=== PATIENT | female | born 1965 | race Caucasian/White ===

== ENCOUNTER 2020-01-12 09:00 | Outpatient (REF) | payer SELFPAY ==
--- NOTE | 2020-01-12 09:08 | XR_ITS ---
EXAMINATION: XR LUMBOSACRAL SPINE CLINICAL INFORMATION: Lower back pain. COMPARISON: Abdomen CT on 06/25/2006. TECHNIQUE: 3 views of the lumbosacral spine. FINDINGS: The bones are normally mineralized. No acute fractures are identified. Alignment is maintained. There is severe intervertebral disc height loss at L4-L5 which is new from the comparison CT in 2006. The SI joints are within normal limits. The remainder of the lumbar intervertebral disc heights appear overall preserved. There is trace spondylosis throughout the remainder of the lumbar spine. There is mild facet arthropathy at L5-S1 and L4-L5. XR/XR lumbar spine 2-3V IMPRESSION: Severe disc height loss at L4-L5. No evidence of acute fracture. Normal alignment.
== END 2020-01-12 09:01 | disposition home or self-care (01) ==
LOC: HO.HMGCX 09:00
PROVIDERS: PCP Nurse Practitioner Family; Visit Provider Nurse Practitioner Family
DX: M54.9 Dorsalgia, unspecified (principal)
CPT/HCPCS: 72100

== ENCOUNTER 2020-05-22 11:02 | Outpatient (REF) | payer MEDICAID, SELFPAY ==
[2020-05-22 12:06] LABS: SARS COV2 PCR INHOUSE NEGATIVE (Negative)
== END 2020-05-22 11:03 | disposition home or self-care (01) ==
LOC: HO.LAB 11:02
PROVIDERS: Visit Provider Internal Medicine
DX: Z20.822 Contact with and (suspected) exposure to COVID-19 (principal)
CPT/HCPCS: C9803; U0003

== ENCOUNTER 2020-11-17 00:58 | Emergency (ER) | payer OTHER, SELFPAY ==
--- NOTE | ~2020-11-17 | CT_ITS ---
EXAMINATION: CT ABDOMEN AND PELVIS WITHOUT CONTRAST CLINICAL INFORMATION: Right flank pain COMPARISON: None TECHNIQUE: Multidetector volumetric imaging was performed from the superior aspect of the liver through the pubic symphysis. Sagittal and coronal reformatted images were obtained on the technologist's workstation. This CT examination was performed using dose optimization techniques as appropriate, variously including the following: *Automated exposure control *Adjustment of mA and/or kV according to patient size (this includes techniques or standardized protocols for targeted exams where dose is matched to indication/reason for exam; i.e. extremities or head) *Use of iterative reconstruction technique DLP: 369 mGy-cm FINDINGS: LUNG BASES: There is a patchy groundglass attenuation in the lingula suspicious for developing infiltrate. Minimal atelectatic changes are seen in the lateral basal segment left lower lobe. The heart size is normal. LIVER, GALLBLADDER, AND BILIARY TREE: The liver is normal in size, shape, and diminished attenuation. No focal hepatic lesion or biliary ductal dilatation is present. The gallbladder is unremarkable with no evidence of radiopaque gallstones, gallbladder wall thickening, or obvious pericholecystic inflammatory changes. PANCREAS: Unremarkable. SPLEEN: Unremarkable. ADRENAL GLANDS: The right adrenal gland is normal. There is a soft tissue mass likely arising from the left adrenal gland measuring 4.5 cm in craniocaudad length, 3.9 cm in AP and 5.0 cm in transverse dimension and approximately 40 Hounsfield units suggestive of solid mass. It lies between kidney posteriorly, pancreas superiorly and along lateral adrenal gland. KIDNEYS AND URETERS: The kidneys are normal in size, shape, and attenuation. No hydronephrosis, hydroureter, or calculi seen. No perinephric stranding. BLADDER: Unremarkable. GASTROINTESTINAL TRACT: The small and large bowel are unremarkable. The appendix is unremarkable. ABDOMINAL WALL: No significant hernia is appreciated. LYMPH NODES: Normal. VASCULAR: Unremarkable. PELVIC VISCERA: The uterus is midline. No adnexal mass seen. There is no free fluid. No abnormal lymph nodes seen.. OSSEOUS STRUCTURES: There are degenerative disc changes L4-L5 disc level with vacuum disc phenomenon and ventral spondylosis. No lytic or sclerotic process seen. CT/CT abdomen pelvis wo con IMPRESSION: No acute intra-abdominal process seen. The appendix is normal caliber. Exophytic soft tissue mass arising from the left adrenal gland likely. Its high attenuation values suggestive of a nonbenign adenoma. Recommend CT adrenal protocol exam Diffuse hepatic steatosis without focal lesion. No radiopaque urolith or hydronephrosis.
[2020-11-17 03:32] VITALS: BP 137/85; TEMP 36.1; O2SAT 96; BMI 21.4
[2020-11-17 03:33] VITALS: BP 178/95; PULSE 96; RESP 16; O2SAT 98; BMI 21.4
[2020-11-17] MEDS: Acetaminophen 325 MG TABLET 650 MG PO (03:53)
[2020-11-17 04:28] LABS: Basophils Absolute Auto 0.1 X10*3/uL (0.0-0.2); Basophils Percent Auto 0.7 % (0-2); Eosinophils Absolute Auto 0.2 X10*3/uL (0.0-0.4); Eosinophils Percent Auto 1.6 % (0-4); Hematocrit 39.7 % (37-47); Hemoglobin 14.1 g/dl (12.0-16.0); Imm Gran Abs Auto 0.02 X10*3/uL (0.00-0.03); Imm Gran Pct Auto 0.2 % (0.0-0.4); Lymphocytes Absolute Auto 2.8 X10*3/uL (1.2-4.9); Lymphocytes Percent Auto 23.7 % (20-40); MANUAL DIFF FLAG NO; Mean Corpuscular HGB Conc 35.5 g/dl (31.0-35.0); Mean Corpuscular Volume 104.2 fL (80-98); Mean Platelet Volume 10.7 fL (9.4-12.3); Monocytes Absolute Auto 1.1 X10*3/uL (0.1-1.2); Monocytes Percent Auto 9.3 % (2-11); Neutrophils Absolute Auto 7.6 X10*3/uL (2.0-8.3); Neutrophils Percent Auto 64.5 % (45-73); Platelet Count 199 X10*3/uL (160-400); Red Blood Count 3.81 X10*6/uL (4.20-5.50); Red Cell Distribution Width 12.4 % (11.0-16.0); White Blood Count 11.8 X10*3/uL (4.8-10.8)
[2020-11-17 04:57] LABS: Alanine Aminotransferase 50 U/L (0-31); Albumin Level 3.5 g/dL (3.5-5.0); Alkaline Phosphatase 147 U/L (39-117); Anion Gap 14 (12-20); Aspartate Amino Transferase 290 U/L (5-31); Bilirubin Total 0.6 mg/dL (0.0-1.0); Blood Urea Nitrogen 5 mg/dL (9-16); Calcium 8.4 mg/dL (8.4-10.2); Carbon Dioxide 25 mmol/L (22-29); Chloride 105 mmol/L (96-108); Creatinine Clr Calc Pharmacy 82.9; Estimated Glomerular Filt Rate > 60; Glucose Random 103 mg/dL (60-115); Potassium 3.6 mmol/L (3.3-5.1); Sodium 140 mmol/L (135-145); Total Protein 6.7 g/dL (6.5-8.0)
[2020-11-17 06:45] VITALS: BP 130/71; PULSE 87; RESP 16; TEMP 36.9; O2SAT 95
--- NOTE | 2020-11-17 06:57 | ED_ITS ---
HPI - Back Pain/Injury General Chief Complaint: Back Pain/Injury Stated Complaint: Back pain Time Seen by Provider: 11/17/20 06:56 History of Present Illness HPI Narrative: Patient is 55 years old presents today with having pain to the right flank area radiating to the front. The pain is sharp in nature. There is no bowel urinary incontinence. There is no focal weakness. Patient is from home. The pain is sharp. Patient states that she has chronic back pain this seems very different. Has positive history of smoking. There is no fever no chills. There is no chest pain. There is no diaphoresis. No bloody urine. MD elicited complaint: back pain Related Data Previous Rx's Medication Instructions Recorded losartan 50 mg-hydrochlorothiazide 1 tab PO DAILY 30 Days #30 tab 10/25/20 12.5 mg tablet Allergies Allergy/AdvReac Type Severity Reaction Status Date / Time bee pollen [BEE STINGS] Allergy Unknown SWELLING Verified 11/17/20 03:31 [facility] Past Medical History Attestation statement: The following information was validated with the patient. Medical History Disc degeneration, lumbar Surgical History History of section Family History Family History Father No problems noted. Mother Asthma COPD (chronic obstructive pulmonary disease) Bronchitis Pleurisy Sister No problems noted. Sister Cervical cancer Son No problems noted. Daughter No problems noted. Social History Social History Housing: Other Housing Other:: hotel Alcohol intake: current Alcohol intake frequency: 0-2 drinks per day Alcohol type: beer Patient Tobacco Use Status: Current everyday Tobacco user Tobacco use type: Cigarette Cigarettes Per Day: 30 Years Smoked: 30 e-Cigarette/Vaping Use: Never Used Second Hand Smoke Exposure: No Advance Directives: No Advance Directives Information Provided: No Patient : No Physical Exam Vital Signs: Vital Signs: Last Vital Signs Temp 98.4 F 11/17/20 06:45 Pulse 87 11/17/20 06:45 Resp 16 11/17/20 06:45 BP 130/71 11/17/20 06:45 Pulse Ox 95 11/17/20 06:45 Body Mass Index 21.4 Appearance: Alert. Oriented X3. No acute distress. Eyes: Pupils equal, round and reactive to light. ENT: Pharynx normal. Neck: Normal inspection. Neck supple. No lymph nodes noted. No crepitus CVS: Normal heart rate and rhythm. Pulses normal. Normal S1 and S2 Respiratory: No respiratory distress. Breath sounds normal. No Wheezing. No rales Abdomen: Soft and nontender. No rigidity. No distention. good BS x4. There is no CVA tenderness elicited on palpation. Abdomen is soft. There is no mass palpable. Skin: Skin warm and dry. Normal skin color. Normal skin turgor. Extremities: No lower extremity edema. Neurovascular intact to all extremities. No Lacerations. No Rash. Lower sensation intact. Reflexes 2+ at patella. Neuro: Oriented X 3. No motor deficit. No sensory deficit. Moving all extermities. No slurred speech MDM - Back Pain/Injury MDM Narrative Medical decision making narrative: CT scan of the abdomen pelvis showed no acute kidney stone. No abscess no perforation. It did show an adrenal mass. This will require follow-up on an outpatient basis. This finding was discussed with patient. She needs follow-up on an outpatient basis additional CT scanning. She states understanding. Will discharge patient. Risk of cancer exists. Lab Data Result diagrams: 11/17/20 04:23 11/17/20 04:23 Labs: Lab Results 11/17/20 11/17/20 11/17/20 Range/Units 04:23 04:23 08:09 WBC 11.8 H (4.8-10.8) X10*3/uL RBC 3.81 L (4.20-5.50) X10*6/uL Hgb 14.1 (12.0-16.0) g/dl Hct 39.7 (37-47) % MCV 104.2 H (80-98) fL MCH 37.0 H (27.0-33.0) pg MCHC 35.5 H (31.0-35.0) g/dl RDW 12.4 (11.0-16.0) % Plt Count 199 (160-400) X10*3/uL MPV 10.7 (9.4-12.3) fL Immature Gran % (Auto) 0.2 (0.0-0.4) % Neut % (Auto) 64.5 (45-73) % Lymph % (Auto) 23.7 (20-40) % [place] % (Auto) 9.3 (2-11) % Eos % (Auto) 1.6 (0-4) % Baso % (Auto) 0.7 (0-2) % Lymph # (Auto) 2.8 (1.2-4.9) X10*3/uL [place] # (Auto) 1.1 (0.1-1.2) X10*3/uL Eos # (Auto) 0.2 (0.0-0.4) X10*3/uL Baso # (Auto) 0.1 (0.0-0.2) X10*3/uL Abs Immat Gran (auto) 0.02 (0.00-0.03) X10*3/uL Absolute Neuts (auto) 7.6 (2.0-8.3) X10*3/uL Absolute Nucleated RBC 0.000 (0.0-0.012) X10*3/uL Nucleated RBC % (auto) 0.0 (0.0-0.2) /100WBC Sodium 140 (135-145) mmol/L Potassium 3.6 (3.3-5.1) mmol/L Chloride 105 (96-108) mmol/L Carbon Dioxide 25 (22-29) mmol/L Anion Gap 14 (12-20) BUN 5 L (9-16) mg/dL Creatinine 0.67 (0.5-1.4) mg/dL Estim Creat Clear Calc 82.9 Estimated GFR > 60 Random Glucose 103 (60-115) mg/dL Calcium 8.4 (8.4-10.2) mg/dL Total Bilirubin 0.6 (0.0-1.0) mg/dL AST 290 H (5-31) U/L ALT 50 H (0-31) U/L Alkaline Phosphatase 147 H (39-117) U/L Total Protein 6.7 (6.5-8.0) g/dL Albumin 3.5 (3.5-5.0) g/dL Urine Color YELLOW Urine Appearance CLEAR Urine pH 5.5 (5.0-8.0) Ur Specific [place] 1.020 (1.005-1.025) Urine Protein NEG (NEG-TRACE) MG/DL Urine Glucose (UA) NEG (NEG) MG/DL Urine Ketones NEG (NEG) MG/DL Urine Blood NEG (NEG) Urine Nitrite NEG (NEG) Ur Leukocyte Esterase NEG (NEG) Discharge Plan Discharge Clinical Impression: Abdominal pain Patient Disposition: Home, Self-Care Instructions: Abdominal Pain (ED) Additional Instructions: A mass was found in your left adrenal gland. Risk of cancer exists. Please closely follow-up with your doctor. Please get a repeat CT scan of the adrenal area Prescriptions: No Action losartan-hydrochlorothiazide 50-12.5 mg tablet 1 tab PO DAILY 30 Days Qty: 30 RF: 4 Referrals: Lamonte Mon, [facility] [employer] [facility] [Primary Care Provider] - 2 days (Exophytic soft tissue mass arising from the left adrenal gland likely. Its high attenuation values suggestive of a nonbenign adenoma. Recommend CT adrenal protocol exam Risk of cancer exists. Please follow-up with getting a repeat adrenal CT scan.)
[2020-11-17 08:17] LABS: Appearance Urine CLEAR; Color Urine YELLOW; Glucose Urine UA NEG (NEG); Leukocyte Esterase Urine NEG (NEG); Nitrite Urine NEG (NEG); PH 5.5 (5.0-8.0); Urine Blood NEG (NEG); Urine Ketones NEG (NEG); Urine Protein NEG (NEG-TRACE)
== END 2020-11-17 09:26 | disposition home or self-care (01) ==
PROVIDERS: Emergency Provider Emergency Medicine Emergency Medical Services; PCP Nurse Practitioner Family
DX: R10.9 Unspecified abdominal pain (principal); F17.210 Nicotine dependence, cigarettes, uncomplicated; Z71.6 Tobacco abuse counseling; Z79.899 Other long term (current) drug therapy
CPT/HCPCS: 36415; 74176; 80053; 81003; 85025; 99284

== ENCOUNTER 2020-12-07 10:25 | Outpatient (REF) | payer OTHER, SELFPAY ==
--- NOTE | ~2020-12-07 | CT_ITS ---
EXAMINATION: CT ABDOMEN WITHOUT AND WITH CONTRAST CLINICAL INFORMATION: Disorders of adrenal gland. COMPARISON: None TECHNIQUE: Contiguous axial thin section helical images of the abdomen were performed before and after the administration of oral contrast and 85 mL of Omnipaque 350 intravenous contrast. The data set was reformatted in the coronal and sagittal planes and reviewed on an independent workstation. This CT examination was performed using dose optimization techniques as appropriate, variously including the following: *Automated exposure control *Adjustment of mA and/or kV according to patient size (this includes techniques or standardized protocols for targeted exams where dose is matched to indication/reason for exam; i.e. extremities or head) *Use of iterative reconstruction technique DLP: 738 mGy-cm FINDINGS: LUNG BASES: The lung bases are clear. The heart size is normal. LIVER, GALLBLADDER, AND BILIARY TREE: The liver is normal size, shape and diffuse attenuation. No focal lesion or intrahepatic ductal dilatation seen. The gallbladder is unremarkable. PANCREAS: Unremarkable SPLEEN: The spleen is normal size and density. ADRENAL GLANDS AND KIDNEYS: The right adrenal gland is normal. A solid left adrenal gland is noted measuring 5.3 x 3.8 x 4.7 cm. On precontrast exam it measures 38.4 HU. Immediate postcontrast exam it measures 103 HU and on delayed 10 minute exam it measures 66 . The absolute washout is 56.9 % and related washout is 35.9 % suggestive of indeterminate lesion. BOWEL LOOPS: Unremarkable. LYMPH NODES: Normal. VASCULAR: Unremarkable. BONES: There are degenerative disc changes at L4-L5 disc level with mild ventral spondylosis. No lytic process seen. CT/CT abdomen wo/w con IMPRESSION: Left adrenal mildly enhancing large lesion suggestive of an indeterminate adrenal mass. If clinically indicated a CT guided biopsy or a follow-up can be performed in 6 months. Correlate hormonal workup.
[2020-12-07] MEDS: iohexoL 350 MG/ML 100 ML INFUS..BTL IV (13:00)
== END 2020-12-07 10:26 | disposition home or self-care (01) ==
LOC: HO.CT 10:25
PROVIDERS: Visit Provider Nurse Practitioner Family
DX: E27.8 Other specified disorders of adrenal gland (principal)
CPT/HCPCS: 74170; Q9967

== ENCOUNTER 2020-12-11 13:43 | Outpatient (REF) | payer OTHER, SELFPAY ==
--- NOTE | ~2020-12-11 | MM_ITS ---
EXAMINATION: MM SCREENING DIGITAL BREAST TOMOSYNTHESIS, BILATERAL CLINICAL INFORMATION: Screening. Asymptomatic. History LCIS right breast 2017. The lifetime risk of breast cancer based on the Tyrer-Cuzick Model is 51%. COMPARISON: Mammography: 08/03/2018, 01/13/2018; needle localization 09/02/2017, mammography 07/23/2017, 05/22/2017, 05/12/2017. TECHNIQUE: Digital breast tomosynthesis is performed in both the craniocaudal and mediolateral oblique views along with computer-aided detection (CAD). Synthesized 2D images are generated from the tomosynthesis. Additional bilateral MLO views are provided. FINDINGS: The breasts are heterogeneously dense, which may obscure small masses (ACR BI-RADS breast composition Category c). Breast parenchymal pattern borders on average fibroglandular. There is a fibronodular parenchymal pattern again seen with numerous small mildly waxing and waning smooth nodules. There are no significant masses or developing density. There is old scarring again see posterior upper inner right breast and mid upper left breast. Numerous bilateral punctate and coarse round calcifications again noted. No significant changes from prior exams. MM/MM tomosynthesis screening BI IMPRESSION: There are no significant changes from prior studies. ASSESSMENT: BI-RADS 2: Benign RECOMMENDATION: Routine annual mammography screening. This patient's information was entered into a reminder system with a target due date for their next mammogram.
--- NOTE | ~2020-12-11 | US_ITS ---
EXAMINATION: ULTRASOUND EXTREMITY NONVASCULAR CLINICAL INFORMATION: Localized swelling, mass or lump right forearm COMPARISON: None TECHNIQUE: Grayscale and color imaging of the soft tissues of the distal dorsal right forearm with and without a standoff pad FINDINGS: There is a 9 x 8 x 4 mm hypoechoic lesion just deep to the skin in the area of palpable abnormality. Ultrasound appearance is nonspecific. This could represent a complex sebaceous cyst or epidermoid. US/US extremity nonvascular dennis IMPRESSION: 9 x 8 x 4 mm nonspecific hypoechoic lesion just deep to the skin corresponding to palpable abnormality.
== END 2020-12-11 13:44 | disposition home or self-care (01) ==
LOC: HO.MAMMO 13:43
PROVIDERS: Visit Provider Nurse Practitioner Family
DX: Z12.31 Encounter for screening mammogram for malignant neoplasm of breast (principal); R22.9 Localized swelling, mass and lump, unspecified
CPT/HCPCS: 76882; 77063; 77067

== ENCOUNTER 2020-12-13 13:49 | Outpatient (REF) | payer OTHER, SELFPAY ==
--- NOTE | ~2020-12-13 | MR_ITS ---
EXAMINATION: MR LUMBAR SPINE WITHOUT CONTRAST CLINICAL INFORMATION: Low back pain. Bilateral lower extremity pain. COMPARISON: CT scan of the abdomen and pelvis 12/08/2020. TECHNIQUE: MRI of the lumbar spine was obtained using routine sequences without contrast. FINDINGS: Alignment is normal. Vertebral body heights are preserved. There are mixed degenerative endplate changes at L4-L5. Bone marrow signal intensity is otherwise unremarkable. There is loss of intervertebral disc height and T2 signal intensity at L4-L5 related to disc degeneration. The tip of the conus medullaris is located at L1. No mass effect on the conus. Visualized distal cord signal intensity is normal. At L1-L2 and L2-L3 the annular contours are normal. No canal or neuroforaminal compromise at these 2 levels. At L3-L4 there is a slightly bulging disc. No canal stenosis. No mass effect on the traversing or foraminal nerve roots. At L4-L5 there is a diffusely bulging disc. Bilateral facet degenerative change. No canal stenosis. There is asymmetric narrowing of the left subarticular zone causing abutment of left traversing L5 nerve roots. No foraminal nerve root compression. At L5-S1 there is a slightly bulging disc. Bilateral facet degenerative change. No canal stenosis. No mass effect on the traversing or foraminal nerve roots. Limited visualization of the retroperitoneal anatomy reveals no abnormal finding. Psoas and paraspinal muscle groups are symmetric. MR/MR lumbar spine wo con IMPRESSION: There is degenerative spondylosis at L5-S1. A bulging disc at this level causes abutment of left traversing L5 nerve roots. Otherwise no substantial mass effect on the traversing or foraminal nerve roots elsewhere within the lumbar spine. No canal stenosis.
== END 2020-12-13 13:50 | disposition home or self-care (01) ==
LOC: HO.MRI 13:49
PROVIDERS: Visit Provider Nurse Practitioner Family
DX: M54.9 Dorsalgia, unspecified (principal); M51.36 Other intervertebral disc degeneration, lumbar region; M79.604 Pain in right leg
CPT/HCPCS: 72148

== ENCOUNTER → 2021-01-28 15:48 | Outpatient (BNVA) | payer OTHER, SELFPAY | PROVIDERS: PCP Nurse Practitioner Family; Referring Provider Nurse Practitioner Family; Visit Provider Nurse Practitioner | DX: Z12.11 Encounter for screening for malignant neoplasm of colon (principal); J44.9 Chronic obstructive pulmonary disease, unspecified | CPT/HCPCS: 99202 ==

== ENCOUNTER 2021-03-08 16:35 | Emergency (ER) | payer OTHER, SELFPAY ==
--- NOTE | ~2021-03-08 | XR_ITS ---
EXAMINATION: XR LUMBOSACRAL SPINE CLINICAL INFORMATION: Back pain. COMPARISON: MR lumbar spine dated from 12/13/2020. TECHNIQUE: Three views of the lumbosacral spine. FINDINGS: Indeterminate irregularity in the anterosuperior aspect of the L3 vertebral body. No compression deformities or malalignment. Redemonstration of multilevel degenerative changes leading to varying degrees of neural foraminal encroachment, best appreciated on the most recent MR. Increased degenerative sclerosis of the endplates at L4-L5. Nonobstructive bowel gas pattern. Atherosclerotic disease of the abdominal aorta. No unexpected radiopaque foreign bodies. XR/XR lumbar spine 2-3V IMPRESSION: Indeterminate irregularity in the anterosuperior corner of L3, possibly degenerative in nature, however no clear correlate is identified on the most recent MR. Evaluate for pain/tenderness at this site and if indicated, consider further evaluation with CT or MR.
--- NOTE | ~2021-03-08 | CT_ITS ---
EXAMINATION: CT LUMBAR SPINE WITHOUT CONTRAST CLINICAL INFORMATION: Further evaluation of an irregularity seen on same day radiograph. Low back pain. COMPARISON: Abdominal radiograph done earlier today at 5:28 PM. MR lumbar spine dated from 12/13/2020. CT abdomen/pelvis dated from 11/17/2020 and 06/25/2006. TECHNIQUE: Axial, coronal, and sagittal images of the lumbar spine were obtained without intravenous contrast. This CT examination was performed using dose optimization techniques as appropriate, variously including the following: *Automated exposure control *Adjustment of mA and/or kV according to patient size (this includes techniques or standardized protocols for targeted exams where dose is matched to indication/reason for exam; i.e. extremities or head) *Use of iterative reconstruction technique DLP; 327 mGy-cm FINDINGS: Corresponding to the abnormality noted on the x-ray from earlier today, there is an anterosuperior compression deformity at L3 which is new since November 2020. Other vertebral body heights are maintained and alignment is anatomic. There is a chronic appearing nondisplaced fracture in the right transverse process of L1 (3:51). There is multilevel lumbar spondylosis with disc space narrowing, osteophytes and bilateral facet arthropathy leading to mild to moderate neural foraminal encroachment at several levels, more apparent in the lower lumbar spine. A large 5.2 x 4 cm hyperattenuating mass arising from the left adrenal gland is unchanged since October 2020 but new since 2006. Atherosclerotic disease of the abdominal aorta which is of normal diameter. CT/CT lumbar spine wo con IMPRESSION: Anterosuperior compression deformity at L3 is new since November 2020. No other acute fractures. Mild to moderate lumbar spondylosis. Indeterminate 5.2 cm mass in the left adrenal gland, new since 2006. Recommend further evaluation with a dynamic abdominal MRI and correlation with hormonal workup.
[2021-03-08 16:52] VITALS: BP 147/89; PULSE 114; RESP 18; TEMP 36.7; O2SAT 96; BMI 21.4
--- NOTE | 2021-03-08 17:47 | ED.BACK ---
HPI - Back Pain/Injury General Chief Complaint: Back Pain/Injury <CHERELLE Luna Last Filed: 03/08/21 19:02> Stated Complaint: severe lower back pain <CHERELLE Luna Last Filed: 03/08/21 19:02> Time Seen by Provider: 03/08/21 17:28 <CHERELLE Luna Last Filed: 03/08/21 19:02> Source: patient <CHERELLE Luna Last Filed: 03/08/21 19:02> Mode of arrival: ambulatory <CHERELLE Luna Last Filed: 03/08/21 19:02> History of Present Illness HPI Narrative: 56-year-old female with a PMHx HTN, lumbar disc degeneration, presenting to the ED complaining of right-sided low back pain s/p bending down to help [id number] off ground and hearing pop . Reports pain radiates up the back, causing SOB secondary to pain and difficulty ambulating. Denies direct trauma/injury or fall, numbness, tingling, weakness, urinary incontinence/retention <CHERELLE Luna - Last Filed: 03/08/21 19:02> MD elicited complaint: back pain <CHERELLE Luna Last Filed: 03/08/21 19:02> Pertinent past history: prior back pain <CHERELLE Luna - Last Filed: 03/08/21 19:02> Onset (ago): minute(s) <CHERELLE Luna Last Filed: 03/08/21 19:02> Timing: constant <CHERELLE Luna Last Filed: 03/08/21 19:02> Related Data Home Medications: Previous Rx's Medication Instructions Recorded bisacodyl 5 mg tablet,delayed 10 mg PO ONCE 1 Days #2 tab 01/28/21 release (Dulcolax (bisacodyl)) polyethylene glycol 3350 17 238 g PO ONCE #238 g 01/28/21 gram/dose oral powder (Miralax) losartan 50 mg-hydrochlorothiazide 1 tab PO DAILY 30 Days #30 tab 02/04/21 12.5 mg tablet tramadol 50 mg tablet 50 mg PO DAILY PRN 20 Days #20 tab 02/04/21 acetaminophen 500 mg tablet 500 mg PO Q6H PRN #20 tab 03/08/21 (Tylenol Extra Strength) cyclobenzaprine 5 mg tablet 5 mg PO Q8H PRN 5 Days #14 tab 03/08/21 lidocaine 5 % topical patch 1 patch TOPICAL DAILY PRN #30 ea 03/08/21 (Lidoderm) MDD remove after 12 hours naproxen 500 mg tablet 500 mg PO BID PRN 10 Days #20 tab 03/08/21 oxycodone 5 mg tablet 5 mg PO Q8H PRN #5 tab 03/08/21 <CHERELLE Luna - Last Filed: 03/08/21 19:02> Allergies/Adverse Reactions: Allergies Allergy/AdvReac Type Severity Reaction Status Date / Time bee pollen [BEE STINGS] Allergy Unknown SWELLING Verified 01/28/21 16:12 <CHERELLE Luna - Last Filed: 03/08/21 19:02> Review of Systems Review of Systems: Constitutional: No Fever, No Chills ENT/Mouth: No Ear Pain, No Nasal Congestion, No sore throat, No Rhinorrhea Cardiovascular: No Chest Pain, No SOB Respiratory: No Cough Gastrointestinal: No Nausea, No Vomiting, No Diarrhea, No Abdominal pain Genitourinary:, No Dysuria, No Hematuria, No Urinary Incontinence/retention, No Flank Pain Musculoskeletal: + joint pain, No Myalgias, No Joint Swelling Skin: No Skin Lesions, No rash Neuro: No Weakness, No Numbness, No Paresthesias <CHERELLE Luna - Last Filed: 03/08/21 19:02> Yes all other systems are reviewed and are negative <CHERELLE Luna Last Filed: 03/08/21 19:02> Neurologic: Denies Sensory deficit (Neuro) <CHERELLE Luna Last Filed: 03/08/21 19:02> [facility] Past Medical History Attestation statement: The following information was validated with the patient. <CHERELLE Luna Last Filed: 03/08/21 19:02> Medical History: Medical History Disc degeneration, lumbar HTN (hypertension) <CHERELLE Luna Last Filed: 03/08/21 19:02> Surgical History: Surgical History History of section <CHERELLE Luna - Last Filed: 03/08/21 19:02> Family History Family History: Family History Father No problems noted. Mother Asthma COPD (chronic obstructive pulmonary disease) Bronchitis Pleurisy Sister No problems noted. Sister Cervical cancer Son No problems noted. Daughter No problems noted. <CHERELLE Luna - Last Filed: 03/08/21 19:02> Social History Social History: Social History Housing: Other Housing Other:: hotel Alcohol intake: current Alcohol intake frequency: 0-2 drinks per day Alcohol type: beer Patient Tobacco Use Status: Current everyday Tobacco user Tobacco use type: Cigarette Cigarettes Per Day: 30 Years Smoked: 30 e-Cigarette/Vaping Use: Never Used Second Hand Smoke Exposure: No Advance Directives: No Patient : No <CHERELLE Luna - Last Filed: 03/08/21 19:02> Physical Exam Vital Signs: Vital Signs: Last Vital Signs Temp 98.0 F 03/08/21 16:52 Pulse 114 H 03/08/21 16:52 Resp 16 03/08/21 19:31 BP 147/89 H 03/08/21 16:52 Pulse Ox 96 03/08/21 16:52 BMI result Body Mass Index 21.4 <CHERELLE Luna - Last Filed: 03/08/21 19:02> Vital Signs: Last Vital Signs Temp 98.0 F 03/08/21 16:52 Pulse 114 H 03/08/21 16:52 Resp 16 03/08/21 19:31 BP 147/89 H 03/08/21 16:52 Pulse Ox 96 03/08/21 16:52 BMI result Body Mass Index 21.4 <Ginny Aiken NP - Last Filed: 03/08/21 20:21> Const: Other: in pain <CHERELLE Luna - Last Filed: 03/08/21 19:02> General: cooperative <CHERELLE Luna - Last Filed: 03/08/21 19:02> Orientation/consciousness: patient oriented x3 <Charlene Wu PA - Last Filed: 03/08/21 19:02> Limitations: no limitations <Charlene Wu PA - Last Filed: 03/08/21 19:02> HENMT: Head: Yes normal to inspection and Yes atraumatic <Charlene Wu PA - Last Filed: 03/08/21 19:02> Ears: hearing grossly normal bilaterally <Charlene Wu PA - Last Filed: 03/08/21 19:02> General nose exam: Normal external nose present <Charlene Wu PA - Last Filed: 03/08/21 19:02> Face and sinus: Yes normal facial exam <Charlene Wu PA - Last Filed: 03/08/21 19:02> Eyes: General: appearance normal, both eyes and all related structures <Charlene Wu PA - Last Filed: 03/08/21 19:02> EOM: EOMs intact bilaterally <Charlene Wu PA - Last Filed: 03/08/21 19:02> Neck: Other: No midline cervical spinous tenderness <Charlene Wu PA - Last Filed: 03/08/21 19:02> Neck: Yes normal visual inspection <Charlene Wu PA - Last Filed: 03/08/21 19:02> Resp: Effort & Inspection: normal respiratory effort and no respiratory distress <Charlene Wu PA - Last Filed: 03/08/21 19:02> Cardio: Rate: regular rate <Charlene Wu PA - Last Filed: 03/08/21 19:02> Peripheral pulses: dorsalis pedis present <Charlene Wu PA - Last Filed: 03/08/21 19:02> GI: Inspection: Yes normal to inspection <Charlene Wu PA - Last Filed: 03/08/21 19:02> Palpation (GI): Soft to palpation, nontender, no guarding and not rigid <Charlene Wu PA - Last Filed: 03/08/21 19:02> : General: Yes no CVA tenderness <Charlene Wu PA - Last Filed: 03/08/21 19:02> Back/Spine/Pelvis: Other: No midline thoracic/lumbar spine tenderness/step-off or deformity. + right-sided lower lumbar/paraspinal tenderness to palpation with palpable muscle spasming. No deformity/ecchymosis or erythema <Charlene Wu PA - Last Filed: 03/08/21 19:02> Back: no CVA tenderness <Charlene Wu PA - Last Filed: 03/08/21 19:02> Skin: Rashes: no rashes <Charlene Wu PA - Last Filed: 03/08/21 19:02> Wounds: no wounds <CHERELLE Luna - Last Filed: 03/08/21 19:02> Neuro: Other: No saddle anesthesia. Strength intact throughout <CHERELLE Luna - Last Filed: 03/08/21 19:02> General: patient oriented x3, gait normal, tone normal and moves all extremities <Charlene Wu PA - Last Filed: 03/08/21 19:02> Gait exam (Neuro): Normal gait present <CHERELLE Luna - Last Filed: 03/08/21 19:02> Motor exam (neuro): 5/5 motor strength present throughout <CHERELLE Luna - Last Filed: 03/08/21 19:02> Sensory Exam: No Sensory deficit (Neuro) <CHERELLE Luna - Last Filed: 03/08/21 19:02> Extrem: General: Yes normal to inspection <CHERELLE Luna - Last Filed: 03/08/21 19:02> Course Course Course Narrative: -1757--XR lumbar spine 2-3V IMPRESSION: Indeterminate irregularity in the anterosuperior corner of L3, possibly degenerative in nature, however no clear correlate is identified on the most recent MR. ? Evaluate for pain/tenderness at this site and if indicated, consider further evaluation with CT or MR. >> patient without midline spinous tenderness, due to hearing pop will obtain CT for further eval -184--patient ambulated to the bathroom in the ED without difficulty -190--ED care transferred to night team pending CT results and anticipated DC home <CHERELLE Luna Last Filed: 03/08/21 19:02> -1757--XR lumbar spine 2-3V IMPRESSION: Indeterminate irregularity in the anterosuperior corner of L3, possibly degenerative in nature, however no clear correlate is identified on the most recent MR. ? Evaluate for pain/tenderness at this site and if indicated, consider further evaluation with CT or MR. >> patient without midline spinous tenderness, due to hearing pop will obtain CT for further eval -1847--patient ambulated to the bathroom in the ED without difficulty -1899--ED care transferred to night team pending CT results and anticipated DC home 2019- Ct lumbar spine IMPRESSION: Anterosuperior compression deformity at L3 is new since November 2020. ? No other acute fractures. ? Mild to moderate lumbar spondylosis. ? Indeterminate 5.2 cm mass in the left adrenal gland, new since 2006. Recommend further evaluation with a dynamic abdominal MRI and correlation with hormonal workup.? -patient was noted to be ambulatory to the bathroom. She was still complaining of some pain so I ordered 30 mg more of Toradol IM, and 5 more mg of oxycodone. She was given a copy of her report as well as of informed about her abnormal finding of a left adrenal gland mass. Reviewed worrisome signs and symptoms of when to return to the emergency department. Comfortable discharge home. <Ginny Aiken NP - Last Filed: 03/08/21 20:21> MDM - Back Pain/Injury MDM Narrative Medical decision making narrative: 56-year-old female with a PMHx HTN, lumbar disc degeneration, presenting to the ED complaining of right-sided low back pain s/p bending down to help [id number] off ground and hearing pop . On exam tachycardic likely from pain, no midline spinous tenderness throughout, no red flag symptoms, no saddle anesthesia. Concern for muscle spasming/strain/sprain. Low concern for cauda equina, cord compression, or epidural abscess Plan: Lumbar x-rays, pain management, re-evaluate <CHERELLE Luna - Last Filed: 03/08/21 19:02> Differential Diagnosis Differential diagnosis: Likely lumbar radiculopathy and strain of lumbar region <CHERELLE Luna - Last Filed: 03/08/21 19:02> Medical Records Attestation: I reviewed the patient's medical records. <CHERELLE Luna - Last Filed: 03/08/21 19:02> Lab Data Attestation: I reviewed the patient's lab results. <CHERELLE Luna - Last Filed: 03/08/21 19:02> Discharge Plan Discharge Clinical Impression: Compression fracture of L3 vertebra <CHERELLE Luna Last Filed: 03/08/21 19:02> Patient Disposition: Home, Self-Care <CHERELLE Luna Last Filed: 03/08/21 19:02> Instructions: Vertebral Compression Fracture (ED) <CHERELLE Luna Last Filed: 03/08/21 19:02> Additional Instructions: Continue taking previously prescribed tramadol at home Your pain is likely musculoskeletal Flexeril is a muscle relaxer, take at night as it makes you drowsy, do not drive, drink alcohol, or operate machinery while taking it Naproxen as an anti-inflammatory / pain medication, take with food Lidoderm patches are numbing patches, apply to painful area In addition take Tylenol at home If symptoms persist or worsen, pain becomes unbearable, you developed urinary retention or incontinence, or weakness return to the ED You were given a copy of your report. Follow-up with your PCP. You have a mass on your left adrenal gland and need an outpatient abdominal MRI <CHERELLE Luna Last Filed: 03/08/21 19:02> Prescriptions: New acetaminophen [Tylenol Extra Strength] 500 mg tablet 500 mg PO Q6H PRN (Reason: pain or fever) Qty: 20 RF: 0 lidocaine [Lidoderm] 5 % adhesive patch,medicated 1 patch topical DAILY MDD remove after 12 hours PRN (Reason: pain) Qty: 30 RF: 0 naproxen 500 mg tablet 500 mg PO BID PRN (Reason: pain) 10 Days Qty: 20 RF: 0 cyclobenzaprine 5 mg tablet 5 mg PO Q8H PRN (Reason: pain (scale score 7-10)) 5 Days Qty: 14 RF: 0 oxycodone 5 mg tablet 5 mg PO Q8H PRN (Reason: pain) Qty: 5 RF: 0 No Action tramadol 50 mg tablet 50 mg PO DAILY PRN (Reason: pain) 20 Days Qty: 20 RF: 0 losartan-hydrochlorothiazide 50-12.5 mg tablet 1 tab PO DAILY 30 Days Qty: 30 RF: 4 bisacodyl [Dulcolax (bisacodyl)] 5 mg tablet,delayed release (DR/EC) 10 mg PO ONCE 1 Days Qty: 2 RF: 0 polyethylene glycol 3350 [Miralax] 17 gram/dose powder 238 g PO ONCE Qty: 238 RF: 0 <CHERELLE Luna - Last Filed: 03/08/21 19:02> Referrals: Lamonte Mon, [employer]- [Primary Care Provider] - 2 days <CHERELLE Luna - Last Filed: 03/08/21 19:02>
[2021-03-08] MEDS: Ketorolac Tromethamine 30 MG/ML VIAL IM (18:38)
[2021-03-08] MEDS: oxyCODONE HCl Immed Release 5 MG TABLET PO (18:40)
[2021-03-08] MEDS: Lidocaine 4 % Patch ADH..PATCH 1 PATCH TRANSDERMA (18:40)
[2021-03-08 19:31] VITALS: RESP 16
== END 2021-03-08 20:49 | disposition home or self-care (01) ==
PROVIDERS: Emergency Provider Internal Medicine; PCP Nurse Practitioner Family
DX: M54.50 Low back pain, unspecified (principal); F17.210 Nicotine dependence, cigarettes, uncomplicated; Z71.6 Tobacco abuse counseling; Z79.899 Other long term (current) drug therapy
CPT/HCPCS: 72100; 72131; 96372; 99284; J1885

== ENCOUNTER → 2021-03-12 10:00 | Outpatient (REF) | payer OTHER, SELFPAY ==
--- NOTE | ~2021-03-12 | NM_ITS ---
EXAMINATION: NM BONE SCAN OF THE WHOLE BODY CLINICAL INFORMATION: Low back pain. COMPARISON: MRI lumbar spine 12/13/2020. TECHNIQUE: Multiple gamma scintillation camera images of the whole body were performed 3 hours following the intravenous administration of 20 mCi Tc-99m MDP. FINDINGS: In the head, no abnormal activity seen. In the thoracic cage and upper extremities, there is mild increased activity in bilateral shoulders related to degenerative changes. No abnormal activity seen in the thoracic cage. In the spine, there is mild increased activity seen along the superior endplate of L3 and L5 vertebra suggesting mild endplate compression fractures. In the pelvis, no abnormal activity seen. In the lower extremities, mild focal increased activity left medial knee joint likely degenerative arthritis. No other definite bony abnormalities are noted. The urinary bladder and faint visualization of both kidneys are noted. NM/NM bone scan whole body IMPRESSION: Mild horizontal activity seen in the superior endplates of L3 and L5 vertebra. There is a fracture of the L3 vertebral endplate visualized on the CT as well as on the lumbar spine from 03/08/2021. Mild horizontal activity in the superior endplate of L5 vertebra likely related to degenerative disc disease and endplate sclerosis. On CT the endplate changes are at the L4 inferior endplate and L5 superior endplate.
== END ==
LOC: HO.NUCMED 10:00
PROVIDERS: PCP Nurse Practitioner Family; Visit Provider Nurse Practitioner Family
DX: M51.36 Other intervertebral disc degeneration, lumbar region (principal)
CPT/HCPCS: 78306; A9503

== ENCOUNTER 2021-04-05 08:55 | Day surgery (SDC) | payer OTHER, SELFPAY ==
--- NOTE | 2021-04-04 09:05 | HO.ANESPROP2 ---
Documented by User: Babs Rivera NP 04/04/21 09:06 HPI - Anesthesia Eval Consult details Narrative: 56yo F for Kyphoplasty Medically cleared by PCP [facility] Active Problems Active Problems: All Active Problems (Updated 03/27/21 @ 15:35 by [facility] Pre-op evaluation (Acute) Compression fx, lumbar spine (Acute) Mass of arm (Acute) Pain of back and right lower extremity (Acute) Screening for colon cancer (Acute) Skin nodule (Acute) Left adrenal mass (Acute) Dermoid cyst of arm (Acute) Disc degeneration, lumbar (Acute) Past Medical History Medical History Disc degeneration, lumbar HTN (hypertension) Family History Family History Father No problems noted. Mother Asthma COPD (chronic obstructive pulmonary disease) Bronchitis Pleurisy Sister No problems noted. Sister Cervical cancer Son No problems noted. Daughter No problems noted. Surgical History Surgical History History of section Social History Social History Housing: Other Housing Other:: hotel Alcohol intake: current Alcohol intake frequency: 3 or more drinks per day Alcohol type: beer Patient Tobacco Use Status: Current everyday Tobacco user Tobacco use type: Cigarette Cigarette Packs Per Day: 11 Cigarettes Per Day: 20 Years Smoked: 30 e-Cigarette/Vaping Use: Never Used Second Hand Smoke Exposure: No Use of substances other than those prescribed or required for medical reasons: No Are you DNR?: No Advance Directives: No Advance Directives Information Provided: Yes Meds Allergies Allergy/AdvReac Type Severity Reaction Status Date / Time bee pollen [BEE STINGS] Allergy Unknown SWELLING Verified 03/27/21 15:34 Home Medications Medication Instructions Recorded Confirmed Last Taken Type oxycodone 5 mg tablet 5 mg PO Q8H PRN 03/27/21 03/27/21 Unknown History Exam Exam Date and Time: April 04, 2021 0905 Pertinent Lab Results Pertinent Lab Results: Laboratory Tests 11/17/20 11/17/20 04:23 04:23 WBC 11.8 H Hgb 14.1 Hct 39.7 Plt Count 199 Sodium 140 Potassium 3.6 Chloride 105 Carbon Dioxide 25 BUN 5 L Creatinine 0.67 Narrative Narrative: EKG 03/2021 NSR Assessment and Plan Assessment Anesthesia Assessment: Chart Reviewed Documented by User: Cherise Nunn MD 04/05/21 09:10 [facility] Past Medical History Medical History Disc degeneration, lumbar HTN (hypertension) Family History Family History Father No problems noted. Mother Asthma COPD (chronic obstructive pulmonary disease) Bronchitis Pleurisy Sister No problems noted. Sister Cervical cancer Son No problems noted. Daughter No problems noted. Family history of problems with anesthesia: No Surgical History Surgical History History of section History of Problems with Anesthesia: No Social History Social History Housing: Other Housing Other:: hotel Alcohol intake: current Alcohol intake frequency: 3 or more drinks per day Alcohol type: beer Patient Tobacco Use Status: Current everyday Tobacco user Tobacco use type: Cigarette Cigarette Packs Per Day: 11 Cigarettes Per Day: 20 Years Smoked: 30 e-Cigarette/Vaping Use: Never Used Second Hand Smoke Exposure: No Use of substances other than those prescribed or required for medical reasons: No Are you DNR?: No Advance Directives: No Advance Directives Information Provided: Yes Meds Allergies Allergy/AdvReac Type Severity Reaction Status Date / Time bee pollen [BEE STINGS] Allergy Unknown SWELLING Verified 03/27/21 15:34 Home Medications Medication Instructions Recorded Confirmed Last Taken Type oxycodone 5 mg tablet 5 mg PO Q8H PRN 03/27/21 03/27/21 Unknown History Exam Airway Mallampati Class: II TM Dist: >3cm Neck ROM: Full Denture: Upper Heart: rrr Lungs: cta Assessment and Plan Assessment Anesthesia Assessment: Anesthesia Plan Discussed and Chart Reviewed Final Anesthetic Review Family History of Problems with Anesthesia: No History of Problems with Anesthesia: No NPO: Yes (Sip water in am) ASA Class: III Final Preanesthetic Review: No Changes in Pt Med Stat, Meds/Allgs Chart Reviewed and Consent Obtained/Reviewed Patient Risk: Intermediate Procedure Risk: Intermediate Anesthetic Plan Anesthetic Plan: MAC: Disposition: Standard PACU
[2021-04-05] VITALS (9 sets, daily range): BP systolic 130–180; BP diastolic 64–98; PULSE 84–102; RESP 14–18; TEMP 36.4–36.6; O2SAT 92–98; BMI 22.3
--- NOTE | ~2021-04-05 | CT_ITS ---
EXAMINATION: CT LUMBAR SPINE CLINICAL INFORMATION: Status post L3 kyphoplasty. COMPARISON: None TECHNIQUE: Axial 2 mm thin and reformatted 2 mm thin sagittal and coronal images of the lumbar spine were obtained. This CT examination was performed using dose optimization techniques as appropriate, variously including the following: *Automated exposure control *Adjustment of mA and/or kV according to patient size (this includes techniques or standardized protocols for targeted exams where dose is matched to indication/reason for exam; i.e. extremities or head) *Use of iterative reconstruction technique DLP: 180 mGy-cm FINDINGS: On sagittal reconstructed images, there is an adequate amount of cement occupying the anterior half of the L3 vertebra. No cement extravasation is seen at this time. There is approximately 5-10% loss of vertebral height. The adjacent L2 and L4 vertebral height is normal. L2-L3 and L3-L4 disc levels are unremarkable. CT/CT lumbar spine post vert IMPRESSION: Adequate amount of cement occupies the L3 vertebra post kyphoplasty. No extravasation of cement is seen.
--- NOTE | ~2021-04-05 | CT_ITS ---
EXAMINATION: CT LUMBAR SPINE WITHOUT CONTRAST CLINICAL INFORMATION: Pre-L3 kyphoplasty evaluation. COMPARISON: Bone scan 03/12/2021. TECHNIQUE: 2 mm thin axial and reformatted 2 mm thin sagittal and coronal images of lumbar spine were obtained from L1-L2 disc level through superior endplate of L5 vertebra. This CT examination was performed using dose optimization techniques as appropriate, variously including the following: *Automated exposure control *Adjustment of mA and/or kV according to patient size (this includes techniques or standardized protocols for targeted exams where dose is matched to indication/reason for exam; i.e. extremities or head) *Use of iterative reconstruction technique DLP; 162 mGy-cm FINDINGS: On reconstructed sagittal image, there is normal L2 and L4 vertebral height. There is compression deformity superior endplate L3 vertebra approximately 10-15% loss of L3 vertebral height. The L2-L3 and L3-L4 disc heights are normal. There is loss of L4-L5 disc height with mild sclerosis along the adjacent endplates and moderate spondylosis. The paravertebral soft tissues are normal. CT/CT lumbar spine wo con IMPRESSION: Acute L3 compression fracture with approximately 10-15% loss of L3 vertebral height. Degenerative disc changes with endplate spondylosis L4-L5 disc level.
--- NOTE | ~2021-04-05 | IR_ITS ---
EXAMINATION: IR LUMBAR VERTEBROPLASTY CLINICAL INFORMATION: Wedge compression fracture L3 vertebra. COMPARISON: Bone scan 03/12/2021. TECHNIQUE: Following explaining the fluoroscopy-guided bipedicle approach L2 kyphoplasty procedure, benefits and risks, a written consent was obtained. The patient was placed prone on the fluoroscopy table and the mid back area was cleaned and draped in the usual sterile manner with chlorhexidine solution. The right pedicle was localized on the skin and 1% lidocaine was injected. A 20-gauge spinal needle was then advanced from the skin to the periosteum of the right L3 pedicle and 0.25% Sensorcaine injected. Through a small skin incision, a 10-gauge Kyphon needle was inserted from the skin to the level of the pedicle and through the pedicle into the posterior one-third of the L3 vertebra. A similar 10-gauge Kyphon needle was inserted from the skin, through the left pedicle into the posterior one-third of the L3 vertebra. Simple drill was administered through the right and left needle. High tensile balloons were then inserted through the pedicles and inflated to 200 psi for 5 minutes. The balloons were removed and freshly prepared polymethylmethacrylate was injected through the right needle followed by the left needle. Fluoroscopy was performed during the injection making sure no cement leaked outside the bone marrow. Post procedure both needles were withdrawn and complete hemostasis was achieved at the puncture site. Simple dressing applied post procedure. Sedation was provided by the anesthesia department. FINDINGS: There is a mild compression deformity of the superior endplate of the L3 vertebra. There is an adequate amount of cement occupying the L3 compression fracture with no extravasation seen. FLUOROSCOPY TIME: 12.4 minutes DOSE AREA PRODUCT: 6830 uGy-m2 (microgray-meter squared) IR/IR kyphoplasty lumbar IMPRESSION: Successful fluoroscopy-guided bipedicle approach L3 kyphoplasty performed.
[2021-04-05 09:24] LABS: Basophils Absolute Auto 0.1 X10*3/uL (0.0-0.2); Basophils Percent Auto 0.9 % (0-2); Eosinophils Absolute Auto 0.4 X10*3/uL (0.0-0.4); Eosinophils Percent Auto 4.1 % (0-4); Hematocrit 40.8 % (37.0-47.0); Hemoglobin 14.2 g/dl (12.0-16.0); Imm Gran Abs Auto 0.03 X10*3/uL (0.00-0.03); Imm Gran Pct Auto 0.3 % (0.0-0.4); Lymphocytes Absolute Auto 3.3 X10*3/uL (1.2-4.9); Lymphocytes Percent Auto 30.8 % (20-40); MANUAL DIFF FLAG SCAN; Mean Corpuscular HGB Conc 34.8 g/dl (31.0-35.0); Mean Corpuscular Hemoglobin 36.2 pg (27.0-33.0); Mean Corpuscular Volume 104.1 fL (80.0-98.0); Mean Platelet Volume 9.7 fL (9.4-12.3); Monocytes Absolute Auto 1.6 X10*3/uL (0.1-1.2); Monocytes Percent Auto 14.7 % (2-11); Neutrophils Absolute Auto 5.3 x10*3/uL (2.0-8.3); Neutrophils Percent Auto 49.2 % (45-73); Platelet Count 240 X10*3/uL (160-400); Red Blood Count 3.92 X10*6/uL (4.20-5.50); Red Cell Distribution Width 13.1 % (11.0-16.0); SCAN SMEAR FLAG 1; White Blood Count 10.8 X10*3/uL (4.8-10.8)
--- NOTE | 2021-04-05 09:25 | PC.NURSE ---
SMOKER COUGH NOTED LS CLEAR AND DIMINISHED NO SOB RESP EASY AND REG
[2021-04-05 09:29] LABS: INTERNATIONAL NORM RATIO 0.9 (0.9-1.1); Prothrombin Time 10.7 SEC (9.9-13.0)
[2021-04-05 09:31] LABS: Partial Thromboplastin Time 33.7 SEC (24.1-38.0)
[2021-04-05] MEDS: Lactated Ringers 1,000 ML 100 ML IVCONT (09:34)
[2021-04-05 09:50] LABS: SLIDE REVIEW VERIFIED
[2021-04-05] MEDS: iohexoL 300 MG/ML 50 ML INFUS..BTL INTRAARTIC (12:36)
[2021-04-05] MEDS: Lidocaine HCl 1 % 20 ML VIAL 6 ML INFILTRATI (12:38)
== END 2021-04-05 16:35 | disposition home or self-care (01) ==
PROVIDERS: Radiology Diagnostic Radiology; PCP Nurse Practitioner Family; Visit Provider Radiology Diagnostic Radiology
DX: S32.030A Wedge compression fracture of third lumbar vertebra, initial encounter for closed fracture (principal); M51.36 Other intervertebral disc degeneration, lumbar region; I10 Essential (primary) hypertension; X58.XXXA Exposure to other specified factors, initial encounter; Y93.9 Activity, unspecified; Y92.9 Unspecified place or not applicable; Y99.8 Other external cause status; F17.210 Nicotine dependence, cigarettes, uncomplicated; Z79.899 Other long term (current) drug therapy
CPT/HCPCS: 22514; 36415; 72131; 85025; 85610; 85730; J0690; J2250; J3010; Q9967

== ENCOUNTER 2021-04-17 09:28 | Emergency (ER) | payer OTHER, SELFPAY ==
[2021-04-17 09:42] VITALS: BP 137/60; PULSE 100; RESP 17; TEMP 36.4; O2SAT 96; BMI 22.3
--- NOTE | 2021-04-17 10:47 | ED_ITS ---
HPI - Back Pain/Injury General Chief Complaint: Back Pain/Injury Stated Complaint: Back pain Time Seen by Provider: 04/17/21 10:06 Source: patient and family Mode of arrival: ambulatory Limitations: no limitations History of Present Illness HPI Narrative: 56-year-old female who has a past medical history of chronic back pain who had an L3 vertebrae fracture who has cement therapy done last month presenting to the ED with complaints of acute on chronic worsening mid back pain radiating to her neck for the past few days worse today. Her also checked in for the same complaint. They deny any traumas. They deny any saddle anesthesias. They deny any recent IV drug use. They deny any urinary bowel incontinence or any other symptoms complaints or concerns. When I walked into the exam room the patient was actually drinking alcohol shots with her who has been here multiple times for alcohol intoxication. MD elicited complaint: back pain Pertinent past history: prior back pain Onset (ago): day(s) Timing: constant Severity: mild Similar Symptoms Previously: Yes Location: thoracic spine Radiation: neck Exacerbating factors: movement, sitting upright, walking and lifting Relieving factors: none Context: unknown Associated symptoms: denies other symptoms Work related injury: No Related Data Home Medications Medication Instructions Recorded Confirmed oxycodone 5 mg tablet 5 mg PO Q8H PRN 03/27/21 03/27/21 Previous Rx's Medication Instructions Recorded losartan 50 mg-hydrochlorothiazide 1 tab PO DAILY 30 Days #30 tab 02/04/21 12.5 mg tablet acetaminophen 500 mg tablet 500 mg PO Q6H PRN #20 tab 03/08/21 (Tylenol Extra Strength) lidocaine 5 % topical patch 1 patch TOPICAL DAILY PRN #30 ea 03/08/21 (Lidoderm) MDD remove after 12 hours cyclobenzaprine 5 mg tablet 5 mg PO BID PRN 30 Days #60 tab 03/20/21 naproxen 500 mg tablet 500 mg PO BID PRN 30 Days #60 tab 03/20/21 acetaminophen 500 mg tablet 1,000 mg PO QID PRN #14 tab 04/17/21 (Tylenol Extra Strength) ibuprofen 800 mg tablet 800 mg PO Q8H PRN #14 tab 04/17/21 lidocaine 4 % topical patch 1 patch TOPICAL DAILY PRN #15 ea 04/17/21 (Aspercreme (lidocaine)) prednisone 20 mg tablet 40 mg PO DAILY 5 Days #10 tab 04/17/21 Allergies Allergy/AdvReac Type Severity Reaction Status Date / Time bee pollen [BEE STINGS] Allergy Unknown SWELLING Verified 03/27/21 15:34 Review of Systems Review of Systems: Constitutional : No trauma, No Weight loss, No Fever, No Chills, ENT/Mouth : No Hearing loss, No Ear Pain, No Nasal Congestion, No Sinus Pain, No Hoarseness, No sore throat, No Rhinorrhea, No Swallowing Difficulty Cardiovascular : No Chest Pain, No SOB Respiratory : No Cough, No Dyspnea Gastrointestinal : No Nausea, No Vomiting, No Diarrhea, No abdominal Pain, No Hematochezia, No Melena Genitourinary : No Dysuria, No Urinary Frequency, No Hematuria, No Urinary or Bowel Incontinence/retention Musculoskeletal : + Back pain, No neck pain, No joint stiffness, No joint swelling Skin : No Skin Lesions, No rash or signs of infection Neuro : No Weakness, No radiation, No Numbness, No Paresthesias, No headache, no loss of bowel or bladder incontinence, no saddle anesthesia, Focal weakness, No radiation Denies history of IV drug usage. Yes all other systems are reviewed and are negative [facility] Past Medical History Attestation statement: The following information was validated with the patient. Medical History Disc degeneration, lumbar HTN (hypertension) Surgical History History of section Family History Family History Father No problems noted. Mother Asthma COPD (chronic obstructive pulmonary disease) Bronchitis Pleurisy Sister No problems noted. Sister Cervical cancer Son No problems noted. Daughter No problems noted. Social History Social History Housing: Other Housing Other:: hotel Alcohol intake: current Alcohol intake frequency: 3 or more drinks per day Alcohol type: beer Patient Tobacco Use Status: Current everyday Tobacco user Tobacco use type: Cigarette Cigarette Packs Per Day: 11 Cigarettes Per Day: 20 Years Smoked: 30 e-Cigarette/Vaping Use: Never Used Second Hand Smoke Exposure: No Advance Directives: No Advance Directives Information Provided: No Patient : No Physical Exam Vital Signs: Vital Signs: Last Vital Signs Temp 97.5 F 04/17/21 09:42 Pulse 100 04/17/21 09:42 Resp 17 04/17/21 09:42 BP 137/60 04/17/21 09:42 Pulse Ox 96 04/17/21 09:42 BMI result Body Mass Index 22.3 vital signs have been reviewed as normal and appeared to be correct. Blood pressure normal. Heart rate normal. Respiration rate normal. Temperature normal. Oxygen saturation normal. Appearance: Alert. Oriented X3. No acute distress. Head: Normal external exam. Normocephalic. Atraumatic. No Thomas signs noted. No raccoon eyes noted Eyes: PERRLA. EOMI. Conjunctiva and sclera normal. Eyelids normal. ENT: EAC normal. TM's Normal. Pharynx normal. Uvula midline. Moist mucous membranes. No trismus noted. No drooling noted. No muffled voice noted. Neck: Normal inspection. Neck supple. FROM. No adenopathy. Thyroid Normal. No meningeal signs. No neck mass noted. CVS: Normal heart rate and rhythm. Heart sound normal. No murmurs noted. Pulses normal throughout. Respiratory: No respiratory distress. Painless inspiration. Breath sounds normal. No wheezes/rales/rhonchi noted. Chest nontender. No accessory muscle usage noted or decreased air movement noted. Abdomen: Soft and nontender. Bowel sounds normal in all 4 quadrants. No distention noted. No organomegaly noted. No visible injury noted. Back: No CVA tenderness. Full range of motion noted. No obvious deformities, or edema. Mild para-spinal muscular tenderness from lumbar region to coccyx. Full ROM in back and lower extremities. 5/5 strength hip extension/flexion, abduction, adduction. Mild Lumbar pain with hip flexion against resistance. Straight leg raise test negative on right; Straight leg raise test negative on left; Reflexes normal ankle and knee bilaterally; EHL motor strength normal bilaterally. No rashes/lesion/induration/fluctuance or signs infection noted. Skin: Skin warm and dry. Normal skin color. Normal skin turgor. No rashes/lesions/lacerations noted. Extremities: No lower extremity edema. Extremities exhibit normal range of motion. Extremities nontender. Neuro: Oriented X 3. No motor deficit. No sensory deficit. Reflexes normal. Patient has a normal steady gait. Course Course Course Narrative: Pt c likely muscular pain, but could be herniated disc. Neuro exam shows no deficits. Not c/w AAA/epidural abscess/dissection.No high risk Hx (Incont, fever, immunosupp, recent surgery/LP, coag, signif trauma, wt loss, puls mass, hx/o Ca, TB, or IVDU) to warrant MRI/CT today. Not c/w Pyelo/UTI/kidney stone/spinal fx. Not cauda equina syndrome. Imaging not currently indicated. When I walked in the exam room both the patient and her who checked in for back pain were drinking alcohol shots therefore explained her that this is not appropriate while they are here in the emergency department further back pain therefore I explained to them that will not be given any muscle relaxers or any narcotics and they should not be drinking while in the emergency department. They denied IV drug use. They appear clinically sober. They are not interested in detox after I offered. Therefore at this time they will be disch arged with Motrin/Tylenol prednisone and Lidoderm patches with instructions to follow up with primary care provider and to return if any new or worsening symptoms. Patient and at bedside understand and agree with this plan. MDM - Back Pain/Injury Medical Records Attestation: I reviewed the patient's medical records. Discharge Plan Discharge Clinical Impression: Chronic back pain Patient Disposition: Home, Self-Care Instructions: Chronic Back Pain (DC) Additional Instructions: Because you were drinking in the exam room I cannot give you any sedative medications including muscle relaxers because you could possibly mix these medications and overdose and therefore he will only be giving Motrin/Tylenol and prednisone. Follow up with her primary care provider for further evaluation treatment return if any new or worsening symptoms. Prescriptions: New acetaminophen [Tylenol Extra Strength] 500 mg tablet 1,000 mg PO QID PRN (Reason: fever or pain) Qty: 14 0RF ibuprofen 800 mg tablet 800 mg PO Q8H PRN (Reason: pain) Qty: 14 0RF prednisone 20 mg tablet 40 mg PO DAILY 5 Days Qty: 10 0RF lidocaine [Aspercreme (lidocaine HCl)] 4 % adhesive patch,medicated 1 patch topical DAILY PRN (Reason: pain) Qty: 15 0RF Rx Instructions: Can be substituted No Action losartan-hydrochlorothiazide 50-12.5 mg tablet 1 tab PO DAILY 30 Days Qty: 30 4RF naproxen 500 mg tablet 500 mg PO BID PRN (Reason: pain) 30 Days Qty: 60 0RF cyclobenzaprine 5 mg tablet 5 mg PO BID PRN (Reason: pain (scale score 7-10)) 30 Days Qty: 60 0RF acetaminophen [Tylenol Extra Strength] 500 mg tablet 500 mg PO Q6H PRN (Reason: pain or fever) Qty: 20 0RF lidocaine [Lidoderm] 5 % adhesive patch,medicated 1 patch topical DAILY MDD remove after 12 hours PRN (Reason: pain) Qty: 30 0RF Rx Instructions: leave on most painful area for up to 12 hrs oxycodone 5 mg tablet 5 mg PO Q8H PRN (Reason: pain) 0RF Referrals: Lamonte Mon, [facility] [Primary Care Provider] - 2 days Print Language: Monegasque
== END 2021-04-17 11:06 | disposition home or self-care (01) ==
PROVIDERS: Emergency Provider Emergency Medicine; PCP Nurse Practitioner Family
DX: G89.29 Other chronic pain (principal); M54.50 Low back pain, unspecified; F17.200 Nicotine dependence, unspecified, uncomplicated
CPT/HCPCS: 99283

== ENCOUNTER 2021-04-17 21:44 | Emergency (ER) | payer OTHER, SELFPAY ==
[2021-04-17 21:55] VITALS: BP 178/74; PULSE 110; RESP 20; TEMP 36.2; O2SAT 97; BMI 22.3
[2021-04-17 23:03] LABS: Appearance Urine CLEAR; Color Urine STRAW; Glucose Urine UA NEG (NEG); Leukocyte Esterase Urine NEG (NEG); Nitrite Urine NEG (NEG); Specific Gravity - Urine <= 1.005 (1.005-1.025); Urine Blood NEG (NEG); Urine Ketones NEG (NEG); Urine Protein NEG (NEG-TRACE)
[2021-04-17 23:09] LABS: Amphetamine Screen Urine Not Detected (Not Detect); Barbiturates, Urine Not Detected (Not Detect); Benzodiazepines Screen Urine Not Detected (Not Detect); Cannabinoid Screen Urine Not Detected (Not Detect); Cocaine Screen Urine Not Detected (Not Detect); Fentanyl, urine Not Detected (Not Detect); Opiate Screen Urine POSITIVE (Not Detect); Phencyclidine Screen Urine Not Detected (Not Detect)
[2021-04-17 23:10] LABS: COVID-19 Test Negative (Negative); IDNOW Serial# 55D5AD1C
[2021-04-17 23:22] LABS: MANUAL DIFF FLAG NO
[2021-04-17 23:24] LABS: Basophils Absolute Auto 0.1 X10*3/uL (0.0-0.2); Eosinophils Absolute Auto 0.3 X10*3/uL (0.0-0.4); Eosinophils Percent Auto 3.3 % (0-4); Imm Gran Abs Auto 0.02 X10*3/uL (0.00-0.03); Imm Gran Pct Auto 0.2 % (0.0-0.4); Mean Corpuscular HGB Conc 35.1 g/dl (31.0-35.0); Mean Corpuscular Hemoglobin 35.8 pg (27.0-33.0); Mean Corpuscular Volume 101.9 fL (80.0-98.0); Mean Platelet Volume 9.7 fL (9.4-12.3); Monocytes Absolute Auto 1.2 X10*3/uL (0.1-1.2); Neutrophils Percent Auto 41.5 % (45-73); Platelet Count 225 X10*3/uL (160-400); Red Blood Count 3.63 X10*6/uL (4.20-5.50); Red Cell Distribution Width 13.2 % (11.0-16.0); White Blood Count 9.6 X10*3/uL (4.8-10.8)
[2021-04-17 23:36] LABS: Ethanol 163 mg/dL
[2021-04-17 23:44] LABS: Alanine Aminotransferase 35 U/L (0-31); Albumin Level 4.1 g/dL (3.5-5.0); Alkaline Phosphatase 154 U/L (39-117); Anion Gap 18 (12-20); Aspartate Amino Transferase 99 U/L (5-31); Bilirubin Direct 0.4 mg/dL (0.0-0.5); Bilirubin Total 0.8 mg/dL (0.0-1.0); Blood Urea Nitrogen 13 mg/dL (9-16); Carbon Dioxide 24 mmol/L (22-29); Chloride 93 mmol/L (96-108); Creatinine Clr Calc Pharmacy 72.2; Estimated Glomerular Filt Rate > 60; Glucose Random 99 mg/dL (60-115); Potassium 4.1 mmol/L (3.3-5.1); Sodium 131 mmol/L (135-145); Total Protein 7.4 g/dL (6.5-8.0)
[2021-04-17] MEDS: Bacitracin Oint 14 GM TUBE 1 APPL TOPICAL (23:59)
--- NOTE | 2021-04-18 | PC.NURSE ---
[facility]N referral completed/confirmed, patient will be evaluated in the morning, bacitracin applied as ordered, on sutured left wrist, 14 stitches, covered with dressing/secured with tapes, no distress observed/reported, will continue to monitor.
[2021-04-18 00:08] VITALS: BP 128/60; PULSE 95; RESP 15; TEMP 36.3; O2SAT 94
--- NOTE | 2021-04-18 00:45 | ED.PSYCH ---
HPI - Psych General Chief Complaint: ETOH/Substance Use Stated Complaint: Wrist Lac section 12 Time Seen by Provider: 04/17/21 21:54 Source: patient Mode of arrival: EMS Limitations: no limitations History of Present Illness HPI Narrative: 53-year-old female who was brought to the emergency department on a Section 12 for suicidal ideation and cutting her left wrist. The patient states she got in argument with her . She states that was a verbal argument and she got upset and she was in ?pissed off ?. She states that she then told her and ?you want me gone ?and she took a steak knife and cut her left wrist. She states that immediately after cutting her wrist she regretted it, she states that she was bleeding profusely from the wrist and she wrapped her wrist up in a towel. Apparently her called the police and the patient was placed on a Section 12 and brought to the emergency department. The patient states that she did this on impulse since she was not actually suicidal. She states that she has never hurt herself in the past. She states she was drinking this evening. She states that she drank at least 3 fireball whiskey shots and 6 beers. She states she drinks this much alcohol daily. She does not know in her last tetanus shot was given. Related Data Home Medications Medication Instructions Recorded Confirmed cyclobenzaprine 5 mg tablet 1 tab PO BID PRN 04/17/21 04/17/21 losartan 50 mg-hydrochlorothiazide 1 tab PO DAILY 04/17/21 04/17/21 12.5 mg tablet naproxen 500 mg tablet 1 tab PO BID PRN 04/17/21 04/17/21 oxycodone 5 mg tablet 1 tab PO Q8H PRN 04/17/21 04/17/21 Allergies Allergy/AdvReac Type Severity Reaction Status Date / Time bee pollen [BEE STINGS] Allergy Unknown SWELLING Verified 03/27/21 15:34 Review of Systems Review of Systems: Yes all other systems are reviewed and are negative COUNTS INCLUDE 234 BEDS AT THE [facility] Past Medical History COUNTS INCLUDE 234 BEDS AT THE [facility] Narrative: Past medical history: Hypertension, back pain. Past surgical history: The patient states that she had a kyphoplasty on 04/05/2021 of L4 and L5 vertebrae. Social history: She smokes 1/2 pack of cigarettes for at greater than 20 years. She drinks alcohol daily. She states that she often drinks 3 shots of whiskey and 6 beers daily. She denies drug use. Medical History Disc degeneration, lumbar HTN (hypertension) Surgical History History of section Family History Family History Father No problems noted. Mother Asthma COPD (chronic obstructive pulmonary disease) Bronchitis Pleurisy Sister No problems noted. Sister Cervical cancer Son No problems noted. Daughter No problems noted. Social History Social History Housing: Other Housing Other:: hotel Alcohol intake: current Alcohol intake frequency: 3 or more drinks per day Alcohol type: beer Patient Tobacco Use Status: Current everyday Tobacco user Tobacco use type: Cigarette Cigarette Packs Per Day: 11 Cigarettes Per Day: 20 Years Smoked: 30 e-Cigarette/Vaping Use: Never Used Second Hand Smoke Exposure: No Advance Directives: No Patient : No Physical Exam Vital Signs: Vital Signs: Last Vital Signs Temp 97.4 F 04/18/21 00:08 Pulse 95 04/18/21 00:08 Resp 15 04/18/21 00:08 BP 128/60 04/18/21 00:08 Pulse Ox 94 04/18/21 00:08 BMI result Body Mass Index 22.3 Const: General: cooperative and no acute distress Orientation/consciousness: oriented to person and oriented to place Limitations: no limitations HENMT: Head: Yes normal to inspection, Yes normocephalic and Yes atraumatic Ears: external ears normal General nose exam: Normal external nose present Face and sinus: Yes normal facial exam Mouth: Normal oral and palatal mucosa present Throat: Yes posterior oropharynx normal Eyes: General: appearance normal, both eyes and all related structures Pupils: Equal, round and reactive pupils present Neck: Neck: Yes normal visual inspection, Yes no lymphadenopathy, Yes trachea midline and Yes supple Chest: Chest palpation & inspection: normal inspection of the chest and normal palpation of entire chest wall Resp: Effort & Inspection: normal respiratory effort and able to speak in complete sentences Auscultation: clear to auscultation bilaterally Cardio: Rate: regular rate Rhythm: regular rhythm Heart sounds: S1 normal heart sound present, S2 normal heart sound present and no murmurs GI: Inspection: Yes normal to inspection Palpation (GI): Soft to palpation, nontender and no guarding Auscultation: normal bowel sounds : General: Yes no CVA tenderness Back/Spine/Pelvis: Back: no CVA tenderness Skin: General skin exam: no rashes or lesions noted Neuro: General: oriented to person and oriented to place Cranial nerves: Yes CN's II-XII intact bilaterally and Yes Equal, round and reactive pupils present Cognition (Neuro): normal cognition Motor exam (neuro): 5/5 motor strength present throughout Extrem: Other: The patient has a 5.5 cm full skin thickness laceration which extends into the muscle layer of the left flexor surface of the wrist. She has normal pulses. There is a small active skin bleeder noted in the medial aspect of the laceration. Psych: Appearance: grossly normal Speech and movement: Normal speech and movement present Affect: normal affect Attitude: cooperative Thought process: Normal thought process present Thought content: Normal thought content present, suicidality and no homicidality Course Course Course Narrative: 56-year-old female who got in a verbal argument with her , she then became upset, made a suicidal statement to her and then took a steak knife and cut her left wrist. The patient had a significant laceration to the wrist which required 2 layers suture repair by me. Her exam was otherwise unremarkable. Her laboratory evaluation is consistent with her alcohol use disorder. The patient has an elevated MCV of 101, low sodium and chloride of 131 and 93, elevated AST and ALT of 99 and 35, elevated alk-phos of 154. Urinalysis was negative. Urine tox screen was positive for opiates. Alcohol level was elevated at 163. The patient is medically cleared for psychiatric evaluation. MDM - Psych Lab Data Result diagrams: 04/17/21 23:17 04/17/21 23:17 Labs: Lab Results 04/17/21 04/17/21 04/17/21 Range/Units 22:50 22:50 22:50 WBC (4.8-10.8) X10*3/uL RBC (4.20-5.50) X10*6/uL Hgb (12.0-16.0) g/dl Hct (37.0-47.0) % MCV (80.0-98.0) fL MCH (27.0-33.0) pg MCHC (31.0-35.0) g/dl RDW (11.0-16.0) % Plt Count (160-400) X10*3/uL MPV (9.4-12.3) fL Immature Gran % (Auto) (0.0-0.4) % Neut % (Auto) (45-73) % Lymph % (Auto) (20-40) % Maury % (Auto) (2-11) % Eos % (Auto) (0-4) % Baso % (Auto) (0-2) % Lymph # (Auto) (1.2-4.9) X10*3/uL Maury # (Auto) (0.1-1.2) X10*3/uL Eos # (Auto) (0.0-0.4) X10*3/uL Baso # (Auto) (0.0-0.2) X10*3/uL Abs Immat Gran (auto) (0.00-0.03) X10*3/uL Absolute Neuts (auto) (2.0-8.3) x10*3/uL Absolute Nucleated RBC (0.0-0.012) X10*3/uL Nucleated RBC % (auto) (0.0-0.2) /100WBC Sodium (135-145) mmol/L Potassium (3.3-5.1) mmol/L Chloride (96-108) mmol/L Carbon Dioxide (22-29) mmol/L Anion Gap (12-20) BUN (9-16) mg/dL Creatinine (0.5-1.4) mg/dL Estim Creat Clear Calc Estimated GFR Random Glucose (60-115) mg/dL Calcium (8.4-10.2) mg/dL Total Bilirubin (0.0-1.0) mg/dL Direct Bilirubin (0.0-0.5) mg/dL AST (5-31) U/L ALT (0-31) U/L Alkaline Phosphatase (39-117) U/L Total Protein (6.5-8.0) g/dL Albumin (3.5-5.0) g/dL Urine Color STRAW Urine Appearance CLEAR Urine pH 6.0 (5.0-8.0) Ur Specific Arm[place] <= 1.005 (1.005-1.025) Urine Protein NEG (NEG-TRACE) MG/DL Urine Glucose (UA) NEG (NEG) MG/DL Urine Ketones NEG (NEG) MG/DL Urine Blood NEG (NEG) Urine Nitrite NEG (NEG) Ur Leukocyte Esterase NEG (NEG) Urine Opiates Screen POSITIVE H (Not Detect) Urine Fentanyl Screen Not Detected (Not Detect) Ur Barbiturates Screen Not Detected (Not Detect) Ur Phencyclidine Scrn Not Detected (Not Detect) Ur Amphetamines Screen Not Detected (Not Detect) U Benzodiazepines Scrn Not Detected (Not Detect) Urine Cocaine Screen Not Detected (Not Detect) U Marijuana (THC) Screen Not Detected (Not Detect) Ethyl Alcohol mg/dL COVID-19 ([facility]) Negative (Negative) COVID-19 Clin Com See Note 04/17/21 04/17/21 04/17/21 Range/Units 23:17 23:17 23:17 WBC 9.6 (4.8-10.8) X10*3/uL RBC 3.63 L (4.20-5.50) X10*6/uL Hgb 13.0 (12.0-16.0) g/dl Hct 37.0 (37.0-47.0) % MCV 101.9 H (80.0-98.0) fL MCH 35.8 H (27.0-33.0) pg MCHC 35.1 H (31.0-35.0) g/dl RDW 13.2 (11.0-16.0) % Plt Count 225 (160-400) X10*3/uL MPV 9.7 (9.4-12.3) fL Immature Gran % (Auto) 0.2 (0.0-0.4) % Neut % (Auto) 41.5 L (45-73) % Lymph % (Auto) 42.0 H (20-40) % Maury % (Auto) 12.0 H (2-11) % Eos % (Auto) 3.3 (0-4) % Baso % (Auto) 1.0 (0-2) % Lymph # (Auto) 4.0 (1.2-4.9) X10*3/uL Maury # (Auto) 1.2 (0.1-1.2) X10*3/uL Eos # (Auto) 0.3 (0.0-0.4) X10*3/uL Baso # (Auto) 0.1 (0.0-0.2) X10*3/uL Abs Immat Gran (auto) 0.02 (0.00-0.03) X10*3/uL Absolute Neuts (auto) 4.0 (2.0-8.3) x10*3/uL Absolute Nucleated RBC 0.000 (0.0-0.012) X10*3/uL Nucleated RBC % (auto) 0.0 (0.0-0.2) /100WBC Sodium 131 L (135-145) mmol/L Potassium 4.1 (3.3-5.1) mmol/L Chloride 93 L (96-108) mmol/L Carbon Dioxide 24 (22-29) mmol/L Anion Gap 18 (12-20) BUN 13 (9-16) mg/dL Creatinine 0.76 (0.5-1.4) mg/dL Estim Creat Clear Calc 72.2 Estimated GFR > 60 Random Glucose 99 (60-115) mg/dL Calcium 9.0 D (8.4-10.2) mg/dL Total Bilirubin 0.8 (0.0-1.0) mg/dL Direct Bilirubin 0.4 (0.0-0.5) mg/dL AST 99 H (5-31) U/L ALT 35 H (0-31) U/L Alkaline Phosphatase 154 H (39-117) U/L Total Protein 7.4 (6.5-8.0) g/dL Albumin 4.1 (3.5-5.0) g/dL Urine Color Urine Appearance Urine pH (5.0-8.0) Ur Specific Arm[place] (1.005-1.025) Urine Protein (NEG-TRACE) MG/DL Urine Glucose (UA) (NEG) MG/DL Urine Ketones (NEG) MG/DL Urine Blood (NEG) Urine Nitrite (NEG) Ur Leukocyte Esterase (NEG) Urine Opiates Screen (Not Detect) Urine Fentanyl Screen (Not Detect) Ur Barbiturates Screen (Not Detect) Ur Phencyclidine Scrn (Not Detect) Ur Amphetamines Screen (Not Detect) U Benzodiazepines Scrn (Not Detect) Urine Cocaine Screen (Not Detect) U Marijuana (THC) Screen (Not Detect) Ethyl Alcohol 163 mg/dL COVID-19 ([facility]) (Negative) COVID-19 Clin Com Procedures Laceration Left wrist: Site: upper extremity (Wrist) Side (If applicable): left Size (cm): 5.5 Description: linear Depth: involves muscle layer Local Anesthetic: lidocaine 2% and with epi Amount of anesthesia used (mL): 10 Pre-repair: wound explored, irrigated extensively and deep structures intact Skin layer closed with: nylon Size (cm): 4-0 Number of sutures: 11 Technique: simple, interrupted Subcutaneous layer closed with: vicryl Size: 3-0 Number of sutures: 3 Technique: simple, interrupted Discharge Plan Discharge Clinical Impression: Suicide ideation, Laceration of wrist Prescriptions: No Action losartan-hydrochlorothiazide 50-12.5 mg tablet 1 tab PO DAILY 0RF naproxen 500 mg tablet 1 tab PO BID PRN (Reason: pain) 0RF oxycodone 5 mg tablet 1 tab PO Q8H PRN (Reason: pain) 0RF cyclobenzaprine 5 mg tablet 1 tab PO BID PRN (Reason: pain) 0RF
--- NOTE | 2021-04-18 06:10 | PC.NURSE ---
Patient slept though the night, no distress observed/reported, pending [facility] evaluation in the morning, med rec completed/pending provider's approval, behavior appropriate, asymptomatic of withdrawal, will continue to monitor.
--- NOTE | 2021-04-18 07:14 | PC.NURSE ---
patient appears to remain asleep at present respirations are even and unlabored, patient appears in no distress
[2021-04-18] MEDS: Losartan Potassium 50 MG TABLET PO (10:43)
[2021-04-18] MEDS: hydroCHLOROthiazide 12.5 MG TABLET PO (10:43)
[2021-04-18] MEDS: Nicotine Polacrilex 2 MG GUM BUCCAL (11:15)
--- NOTE | 2021-04-18 11:23 | PC.NURSE ---
?/SO called and left phone number for patient [phone]
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
--- NOTE | 2021-04-18 13:32 | MHC.RECOVSUP ---
? Reason for consult:Recovery Support o Current location:[facility] o Identified substance use concern: ETOH - Withdrawal - Support ? Intervention: o Community resources provided o Harm reduction discussion ? Plan: o Referral to CCC o Patient to follow up with [facility] after discharge ? Additional information:Patient refuses detox, spoke to patient re: HARM REDUCTION, gave pt. community resources
== END 2021-04-18 14:46 | disposition home or self-care (01) ==
PROVIDERS: Emergency Provider Emergency Medicine Emergency Medical Services
DX: R45.851 Suicidal ideations (principal); S61.512A Laceration without foreign body of left wrist, initial encounter; X78.1XXA Intentional self-harm by knife, initial encounter; F17.200 Nicotine dependence, unspecified, uncomplicated; Z20.822 Contact with and (suspected) exposure to COVID-19; Y93.89 Activity, other specified; Y92.59 Other trade areas as the place of occurrence of the external cause; Y99.9 Unspecified external cause status
CPT/HCPCS: 12042; 36415; 80048; 80076; 80307; 81003; 82077; 85025; 87635; 90715; 99284

== ENCOUNTER 2021-05-23 02:05 | Emergency (ER) | payer OTHER, SELFPAY ==
--- NOTE | ~2021-05-23 | CT_ITS ---
EXAMINATION: CT THORACIC AND LUMBAR SPINE WITH CONTRAST CLINICAL INFORMATION: Lower extremity pain and tremors. Status post kyphoplasty 04/05/2021 COMPARISON: CT dated 04/05/2021 and 03/08/2021. CT abdomen/pelvis dated 11/17/2020. TECHNIQUE: Multidetector CT imaging of the thoracic and lumbar spine was performed after the administration of 85 mL Omnipaque 350. Coronal and sagittal reformats are reviewed. This CT examination was performed using dose optimization techniques as appropriate, variously including the following: *Automated exposure control *Adjustment of mA and/or kV according to patient size (this includes techniques or standardized protocols for targeted exams where dose is matched to indication/reason for exam; i.e. extremities or head) *Use of iterative reconstruction technique DLP:980 mGy-cm FINDINGS: Thoracic spine: No acute fracture or traumatic malalignment. Vertebral body heights maintained. No significant degenerative changes. Paraspinal soft tissues unremarkable. Imaged viscera demonstrates [id number] centrilobular emphysema. Lumbar spine: Cement present within the L3 vertebral body which shows a stable degree of compression deformity resulting in 20-30% height loss anteriorly with a small crescentic minimally displaced fragment along the anterosuperior aspect of the vertebral body. Trace cement extends superiorly into the L2-L3 interspace, unchanged from the postprocedural CT. Remaining lumbar vertebral body heights are preserved. Stable near-complete obliteration of L4-L5 disc space with diffuse disc bulge and endplate osteophytes. There is a moderate broad-based posterior disc protrusion at L5-S1. Small diffuse disc bulges at L2-L3 and L3-L4 appearing similar to the prior exam in February 2021. Imaged viscera demonstrates a large mass apparently emanating from the lateral limb of the left adrenal gland which appears similar in overall size from the previous CT abdomen/pelvis dated 11/17/2020. CT/CT lumbar spine w con IMPRESSION: * Stable appearance of the compression fracture at L3 status post vertebroplasty. * No new fractures within the thoracic and lumbar spine. * Lumbar spondylosis as described. * Solid left adrenal mass is stable in size since October 2020. Current guidelines from the [place] [employer] and the [place] [employer] recommend an initial biochemical evaluation of all adrenal incidentalomas to exclude pheochromocytoma, subclinical Flora/s syndrome and hyperaldosteronism. Tissue characterization may be required.
--- NOTE | ~2021-05-23 | CT_ITS ---
EXAMINATION: CT THORACIC AND LUMBAR SPINE WITH CONTRAST CLINICAL INFORMATION: Lower extremity pain and tremors. Status post kyphoplasty 04/05/2021 COMPARISON: CT dated 04/05/2021 and 03/08/2021. CT abdomen/pelvis dated 11/17/2020. TECHNIQUE: Multidetector CT imaging of the thoracic and lumbar spine was performed after the administration of 85 mL Omnipaque 350. Coronal and sagittal reformats are reviewed. This CT examination was performed using dose optimization techniques as appropriate, variously including the following: *Automated exposure control *Adjustment of mA and/or kV according to patient size (this includes techniques or standardized protocols for targeted exams where dose is matched to indication/reason for exam; i.e. extremities or head) *Use of iterative reconstruction technique DLP:980 mGy-cm FINDINGS: Thoracic spine: No acute fracture or traumatic malalignment. Vertebral body heights maintained. No significant degenerative changes. Paraspinal soft tissues unremarkable. Imaged viscera demonstrates [id number] centrilobular emphysema. Lumbar spine: Cement present within the L3 vertebral body which shows a stable degree of compression deformity resulting in 20-30% height loss anteriorly with a small crescentic minimally displaced fragment along the anterosuperior aspect of the vertebral body. Trace cement extends superiorly into the L2-L3 interspace, unchanged from the postprocedural CT. Remaining lumbar vertebral body heights are preserved. Stable near-complete obliteration of L4-L5 disc space with diffuse disc bulge and endplate osteophytes. There is a moderate broad-based posterior disc protrusion at L5-S1. Small diffuse disc bulges at L2-L3 and L3-L4 appearing similar to the prior exam in February 2021. Imaged viscera demonstrates a large mass apparently emanating from the lateral limb of the left adrenal gland which appears similar in overall size from the previous CT abdomen/pelvis dated 11/17/2020. CT/CT thoracic spine w con IMPRESSION: * Stable appearance of the compression fracture at L3 status post vertebroplasty. * No new fractures within the thoracic and lumbar spine. * Lumbar spondylosis as described. * Solid left adrenal mass is stable in size since October 2020. Current guidelines from the [place] [employer] and the [place] [employer] recommend an initial biochemical evaluation of all adrenal incidentalomas to exclude pheochromocytoma, subclinical Flora/s syndrome and hyperaldosteronism. Tissue characterization may be required.
[2021-05-23 02:07] VITALS: BP 148/85; PULSE 104; RESP 18; TEMP 36.2; O2SAT 98; BMI 22.3
[2021-05-23 02:58] LABS: Basophils Absolute Auto 0.1 X10*3/uL (0.0-0.2); Basophils Percent Auto 0.7 % (0-2); Eosinophils Absolute Auto 0.3 X10*3/uL (0.0-0.4); Eosinophils Percent Auto 3.8 % (0-4); Hematocrit 34.6 % (37.0-47.0); Hemoglobin 12.1 g/dl (12.0-16.0); Imm Gran Abs Auto 0.01 X10*3/uL (0.00-0.03); Imm Gran Pct Auto 0.1 % (0.0-0.4); Lymphocytes Absolute Auto 4.3 X10*3/uL (1.2-4.9); Lymphocytes Percent Auto 47.7 % (20-40); MANUAL DIFF FLAG NO; Mean Corpuscular Hemoglobin 36.8 pg (27.0-33.0); Mean Corpuscular Volume 105.2 fL (80.0-98.0); Mean Platelet Volume 9.7 fL (9.4-12.3); Monocytes Absolute Auto 1.1 X10*3/uL (0.1-1.2); Monocytes Percent Auto 12.5 % (2-11); NRBC Pct Auto 0.2 /100WBC (0.0-0.2); Neutrophils Absolute Auto 3.1 x10*3/uL (2.0-8.3); Neutrophils Percent Auto 35.2 % (45-73); Platelet Count 199 X10*3/uL (160-400); Red Blood Count 3.29 X10*6/uL (4.20-5.50); Red Cell Distribution Width 14.5 % (11.0-16.0); White Blood Count 8.9 X10*3/uL (4.8-10.8)
[2021-05-23 03:08] VITALS: BP 150/66; PULSE 97; RESP 16; TEMP 36.8; O2SAT 96
[2021-05-23 03:24] LABS: Alanine Aminotransferase 40 U/L (0-31); Albumin Level 3.8 g/dL (3.5-5.0); Alkaline Phosphatase 132 U/L (39-117); Anion Gap 16 (12-20); Aspartate Amino Transferase 116 U/L (5-31); Bilirubin Total 0.4 mg/dL (0.0-1.0); Blood Urea Nitrogen 6 mg/dL (9-16); Calcium 9.1 mg/dL (8.4-10.2); Carbon Dioxide 24 mmol/L (22-29); Chloride 101 mmol/L (96-108); Creatinine Clr Calc Pharmacy 80.7; Estimated Glomerular Filt Rate > 60; Glucose Random 128 mg/dL (60-115); Magnesium 2.3 mg/dL (1.6-2.6); Potassium 3.6 mmol/L (3.3-5.1); Sodium 137 mmol/L (135-145)
[2021-05-23 03:31] LABS: Appearance Urine CLEAR; Color Urine YELLOW; Glucose Urine UA NEG (NEG); Leukocyte Esterase Urine 2+ (NEG); Nitrite Urine NEG (NEG); Specific Gravity - Urine <= 1.005 (1.005-1.025); UACC Culture Trigger YES; Urine Blood NEG (NEG); Urine Ketones NEG (NEG); Urine Protein NEG (NEG-TRACE)
[2021-05-23 03:35] LABS: Influenza A PCR NEGATIVE (Negative); Influenza B PCR NEGATIVE (Negative); Resp Syncy Virus RNA Qual PCR NEGATIVE (Negative); SARS COV2 PCR INHOUSE NEGATIVE (Negative)
--- NOTE | 2021-05-23 03:46 | ED.GENADULT ---
HPI - General Adult General Chief complaint: General Medical Stated complaint: body aches/convulsions Time Seen by Provider: 05/23/21 02:27 Source: patient and other Mode of arrival: ambulatory History of Present Illness HPI narrative: 56-year-old female with presentation for increase presence of tremors that she states affects all 4 extremities, patient states that she is a regular drinker of alcohol and an every day smoker. Patient states her last alcoholic drink was approximately 3-4 hours ago and otherwise denies any speech/auditory symptoms with the tremors and denies any fevers, chills, nausea, vomiting, but states that she does have several episodes of stools daily without difficulty and denies any presence of blood. In addition, patient denies any urinary pain/burning/frequency and does report a procedure on her back that on review of documentation appears to have occurred on 04/05/2021. Patient voices concerns of possible Parkinson's development. Related Data Home Medications Medication Instructions Recorded Confirmed cyclobenzaprine 5 mg tablet 1 tab PO BID PRN 04/17/21 04/17/21 losartan 50 mg-hydrochlorothiazide 1 tab PO DAILY 04/17/21 04/17/21 12.5 mg tablet naproxen 500 mg tablet 1 tab PO BID PRN 04/17/21 04/17/21 Allergies Allergy/AdvReac Type Severity Reaction Status Date / Time bee pollen [BEE STINGS] Allergy Unknown SWELLING Verified 05/23/21 02:07 Review of Systems Review of Systems: Pertinent positives and negatives as stated in HPI and 10 point review of systems is otherwise negative. [facility] Past Medical History Source: nursing notes reviewed Medical History Disc degeneration, lumbar HTN (hypertension) Surgical History History of section Family History Family History Father No problems noted. Mother Asthma COPD (chronic obstructive pulmonary disease) Bronchitis Pleurisy Sister No problems noted. Sister Cervical cancer Son No problems noted. Daughter No problems noted. Social History Social History Housing: Other Housing Other:: hotel Alcohol intake: current Alcohol intake frequency: 3 or more drinks per day Alcohol type: beer Patient Tobacco Use Status: Current everyday Tobacco user Tobacco use type: Cigarette Cigarette Packs Per Day: 0.5 Cigarettes Per Day: 10 Years Smoked: 30 e-Cigarette/Vaping Use: Never Used Second Hand Smoke Exposure: No Advance Directives: No Advance Directives Information Provided: Yes Patient : No Current occupational status: disabled Physical Exam ED Vital Signs: Vital Signs - 24 hr 05/23/21 02:07 05/23/21 03:08 Temperature 97.2 F 98.2 F Pulse Rate 104 H 97 Respiratory Rate 18 16 Blood Pressure 148/85 H 150/66 H Pulse Oximetry 98 96 BMI result Body Mass Index 22.3 VITAL SIGNS: Reviewed. GENERAL: Cachectic, chronically ill, in no acute distress. HEAD: Normocephalic/atraumatic EYES: PERRLA, EOMI intact without pain, no nystagmus EARS: Ext canals without abnormality OROPHARYNX: no oral lesions noted, posterior pharynx clear LUNGS: Normal breath sounds. No adventitious sounds or accessory muscle use. SpO2<98> CARDIOVASCULAR: Regular rate and rhythm without noted murmurs, no JVD or lower extremity edema. ABDOMEN: Soft, non-tender, non-distended with bowel sounds. BACK: No midline vertebral tenderness, no erythema/induration, no step-offs, and no tenderness on palpation. MUSCULOSKELETAL: No tenderness, deformities, or effusions noted on gross inspection. EXTREMITIES: No cyanosis, clubbing or edema. SKIN: Inspection of the skin reveals no rashes, ulcerations, jaundice, pallor, or petechiae. NEUROLOGIC: Alert and oriented x 4. Strength and sensation to light touch were grossly intact x 4, but noticeable tremor primarily to the right upper extremity, none noted to the left upper extremity nor to bilateral lower extremities. It is noted that bilateral lower extremities are able to be raised against gravity but minimal amount of pressure and patient is unable to keep them elevated. Course Course Course Narrative: 56-year-old female with history and clinical presentation tremors and unclear etiology given patient's recent alcohol use I do not suspect that this is due to withdrawal symptoms but could be secondary to longstanding alcohol affects, less likely Parkinson's given the history and clinical findings, or possible benign essential tremor. All these possibilities were discussed with the patient at bedside and she understands that we will evaluate for immediate etiologies such as infections. Low clinical suspicion for acute ascending neurologic condition and low clinical suspicion for cauda equina. However given that patient underwent manipulation of the spine in March will probably pursue CT of the spine with IV contrast to ensure no evidence to suggest infection. Although, patient does not complain of new spinal pain. Review of all imaging studies negative for acute findings and on review of all laboratory investigations patient's symptoms are most notably consistent with likely B12 deficiency. All results and findings were discussed with her bedside and on re-evaluation she is noted to be without tremors and understands the plan. Medical Decision Making Lab Data Result diagrams: 05/23/21 02:51 05/23/21 02:51 Labs: Lab Results 05/23/21 05/23/21 05/23/21 Range/Units 02:51 02:51 02:51 WBC 8.9 (4.8-10.8) X10*3/uL RBC 3.29 L (4.20-5.50) X10*6/uL Hgb 12.1 (12.0-16.0) g/dl Hct 34.6 L (37.0-47.0) % MCV 105.2 H (80.0-98.0) fL MCH 36.8 H (27.0-33.0) pg MCHC 35.0 (31.0-35.0) g/dl RDW 14.5 (11.0-16.0) % Plt Count 199 (160-400) X10*3/uL MPV 9.7 (9.4-12.3) fL Immature Gran % (Auto) 0.1 (0.0-0.4) % Neut % (Auto) 35.2 L (45-73) % Lymph % (Auto) 47.7 H (20-40) % [place] % (Auto) 12.5 H (2-11) % Eos % (Auto) 3.8 (0-4) % Baso % (Auto) 0.7 (0-2) % Lymph # (Auto) 4.3 (1.2-4.9) X10*3/uL [place] # (Auto) 1.1 (0.1-1.2) X10*3/uL Eos # (Auto) 0.3 (0.0-0.4) X10*3/uL Baso # (Auto) 0.1 (0.0-0.2) X10*3/uL Abs Immat Gran (auto) 0.01 (0.00-0.03) X10*3/uL Absolute Neuts (auto) 3.1 (2.0-8.3) x10*3/uL Absolute Nucleated RBC 0.020 H (0.0-0.012) X10*3/uL Nucleated RBC % (auto) 0.2 (0.0-0.2) /100WBC Sodium 137 (135-145) mmol/L Potassium 3.6 (3.3-5.1) mmol/L Chloride 101 (96-108) mmol/L Carbon Dioxide 24 (22-29) mmol/L Anion Gap 16 (12-20) BUN 6 L D (9-16) mg/dL Creatinine 0.68 (0.5-1.4) mg/dL Estim Creat Clear Calc 80.7 Estimated GFR > 60 Random Glucose 128 H (60-115) mg/dL Calcium 9.1 (8.4-10.2) mg/dL Magnesium 2.3 (1.6-2.6) mg/dL Total Bilirubin 0.4 (0.0-1.0) mg/dL AST 116 H (5-31) U/L ALT 40 H (0-31) U/L Alkaline Phosphatase 132 H (39-117) U/L Total Creatine Kinase 69 (26-140) U/L Total Protein 7.0 (6.5-8.0) g/dL Albumin 3.8 (3.5-5.0) g/dL Urine Color Urine Appearance Urine pH (5.0-8.0) Ur Specific [place] (1.005-1.025) Urine Protein (NEG-TRACE) MG/DL Urine Glucose (UA) (NEG) MG/DL Urine Ketones (NEG) MG/DL Urine Blood (NEG) Urine Nitrite (NEG) Ur Leukocyte Esterase (NEG) Urine RBC (0) /HPF Urine WBC (0-4) /HPF Ur Squamous Epith Cells /LPF Urine Bacteria /LPF Influenza Type A (PCR) NEGATIVE (Negative) Influenza Type B (PCR) NEGATIVE (Negative) RSV RNA Qual (PCR) NEGATIVE (Negative) SARS-CoV-2 RNA (RT-PCR) NEGATIVE (Negative) 03/31/22 Range/Units 03:20 WBC (4.8-10.8) X10*3/uL RBC (4.20-5.50) X10*6/uL Hgb (12.0-16.0) g/dl Hct (37.0-47.0) % MCV (80.0-98.0) fL MCH (27.0-33.0) pg MCHC (31.0-35.0) g/dl RDW (11.0-16.0) % Plt Count (160-400) X10*3/uL MPV (9.4-12.3) fL Immature Gran % (Auto) (0.0-0.4) % Neut % (Auto) (45-73) % Lymph % (Auto) (20-40) % [place] % (Auto) (2-11) % Eos % (Auto) (0-4) % Baso % (Auto) (0-2) % Lymph # (Auto) (1.2-4.9) X10*3/uL [place] # (Auto) (0.1-1.2) X10*3/uL Eos # (Auto) (0.0-0.4) X10*3/uL Baso # (Auto) (0.0-0.2) X10*3/uL Abs Immat Gran (auto) (0.00-0.03) X10*3/uL Absolute Neuts (auto) (2.0-8.3) x10*3/uL Absolute Nucleated RBC (0.0-0.012) X10*3/uL Nucleated RBC % (auto) (0.0-0.2) /100WBC Sodium (135-145) mmol/L Potassium (3.3-5.1) mmol/L Chloride (96-108) mmol/L Carbon Dioxide (22-29) mmol/L Anion Gap (12-20) BUN (9-16) mg/dL Creatinine (0.5-1.4) mg/dL Estim Creat Clear Calc Estimated GFR Random Glucose (60-115) mg/dL Calcium (8.4-10.2) mg/dL Magnesium (1.6-2.6) mg/dL Total Bilirubin (0.0-1.0) mg/dL AST (5-31) U/L ALT (0-31) U/L Alkaline Phosphatase (39-117) U/L Total Creatine Kinase (26-140) U/L Total Protein (6.5-8.0) g/dL Albumin (3.5-5.0) g/dL Urine Color YELLOW Urine Appearance CLEAR Urine pH 6.0 (5.0-8.0) Ur Specific [place] <= 1.005 (1.005-1.025) Urine Protein NEG (NEG-TRACE) MG/DL Urine Glucose (UA) NEG (NEG) MG/DL Urine Ketones NEG (NEG) MG/DL Urine Blood NEG (NEG) Urine Nitrite NEG (NEG) Ur Leukocyte Esterase 2+ H (NEG) Urine RBC 0-2 (0) /HPF Urine WBC 1-4 (0-4) /HPF Ur Squamous Epith Cells TRACE /LPF Urine Bacteria TRACE /LPF Influenza Type A (PCR) (Negative) Influenza Type B (PCR) (Negative) RSV RNA Qual (PCR) (Negative) SARS-CoV-2 RNA (RT-PCR) (Negative) Discharge Plan Discharge Clinical Impression: Coarse tremors, Alcohol use Patient Disposition: Home, Self-Care Instructions: Malnutrition (DC), Alcohol Use Disorder (ED) Additional Instructions: 1. Resume all home medications as prescribed. 2. Try to reduce or completely stop your use of alcohol. 3. Your MCV-105.2 is indicative of possible B12 or folate deficiency and may be contributing to your symptoms. 4. Follow-up with primary care provider for re-evaluation and further outpatient investigation. Return to the ER for any worsening of your symptoms. Prescriptions: No Action losartan-hydrochlorothiazide 50-12.5 mg tablet 1 tab PO DAILY 0RF naproxen 500 mg tablet 1 tab PO BID PRN (Reason: pain) 0RF cyclobenzaprine 5 mg tablet 1 tab PO BID PRN (Reason: pain) 0RF Referrals: Lamonte Mon, OPERATING ROOM RN-BC [Primary Care Provider] - 2 days (Suspect B12 deficiency)
[2021-05-23 03:48] LABS: Bacteria Urine TRACE /LPF; RBC Urine 0-2 /HPF (0); Squamous Epithelial Cell Urine TRACE /LPF
--- NOTE | 2021-05-23 06:05 | PC.NURSE ---
Pt to CT via stretcher. IV access obtained to left outer forearm.
[2021-05-23] MEDS: iohexoL 350 MG/ML 100 ML INFUS..BTL 85 ML IV (06:23)
[2021-05-23 07:32] VITALS: BP 104/87; PULSE 108; RESP 18; O2SAT 97
== END 2021-05-23 07:40 | disposition home or self-care (01) ==
PROVIDERS: Emergency Provider Student in an Organized Health Care Education/Training Program; PCP Nurse Practitioner Family
DX: G25.2 Other specified forms of tremor (principal); F10.988 Alcohol use, unspecified with other alcohol-induced disorder; Y90.9 Presence of alcohol in blood, level not specified; Z20.822 Contact with and (suspected) exposure to COVID-19; I10 Essential (primary) hypertension; F32.A Depression, unspecified; F17.200 Nicotine dependence, unspecified, uncomplicated; Z79.899 Other long term (current) drug therapy
CPT/HCPCS: 0241U; 72129; 72132; 80053; 81001; 82550; 83735; 85025; 87086; 99284; Q9967

== ENCOUNTER 2021-06-10 11:37 | Outpatient (REF) | payer OTHER, SELFPAY ==
[2021-06-10 13:45] LABS: MANUAL DIFF FLAG NO
[2021-06-10 13:50] LABS: Basophils Absolute Auto 0.1 X10*3/uL (0.0-0.2); Basophils Percent Auto 0.9 % (0-2); Eosinophils Absolute Auto 0.1 X10*3/uL (0.0-0.4); Eosinophils Percent Auto 0.6 % (0-4); Hematocrit 39.1 % (37.0-47.0); Hemoglobin 13.5 g/dl (12.0-16.0); Imm Gran Abs Auto 0.03 X10*3/uL (0.00-0.03); Imm Gran Pct Auto 0.3 % (0.0-0.4); Lymphocytes Absolute Auto 2.3 X10*3/uL (1.2-4.9); Lymphocytes Percent Auto 22.3 % (20-40); Mean Corpuscular HGB Conc 34.5 g/dl (31.0-35.0); Mean Corpuscular Hemoglobin 37.9 pg (27.0-33.0); Mean Corpuscular Volume 109.8 fL (80.0-98.0); Mean Platelet Volume 11.6 fL (9.4-12.3); Monocytes Absolute Auto 1.4 X10*3/uL (0.1-1.2); Monocytes Percent Auto 13.4 % (2-11); Neutrophils Absolute Auto 6.5 x10*3/uL (2.0-8.3); Neutrophils Percent Auto 62.5 % (45-73); Platelet Count 196 X10*3/uL (160-400); Red Blood Count 3.56 X10*6/uL (4.20-5.50); Red Cell Distribution Width 14.6 % (11.0-16.0); White Blood Count 10.4 X10*3/uL (4.8-10.8)
[2021-06-10 14:08] LABS: Alanine Aminotransferase 47 U/L (0-31); Alkaline Phosphatase 160 U/L (39-117); Anion Gap 17 (12-20); Aspartate Amino Transferase 157 U/L (5-31); Bilirubin Total 0.7 mg/dL (0.0-1.0); Blood Urea Nitrogen 7 mg/dL (9-16); Calcium 9.5 mg/dL (8.4-10.2); Carbon Dioxide 26 mmol/L (22-29); Chloride 100 mmol/L (96-108); Estimated Glomerular Filt Rate > 60; Glucose Random 120 mg/dL (60-115); Potassium 3.9 mmol/L (3.3-5.1); Sodium 139 mmol/L (135-145); Total Protein 7.6 g/dL (6.5-8.0)
[2021-06-10 14:34] LABS: Vitamin B12 163 pg/mL (200-900)
== END 2021-06-10 11:38 | disposition home or self-care (01) ==
LOC: HO.HMGCLDS 11:37
PROVIDERS: Visit Provider Nurse Practitioner Family
DX: F10.10 Alcohol abuse, uncomplicated (principal)
CPT/HCPCS: 36415; 80053; 82607; 82746; 85025

== ENCOUNTER 2021-06-13 11:57 | Day surgery (SDC) | payer OTHER, SELFPAY ==
[2021-06-11 09:45] VITALS: BMI 22.8
--- NOTE | 2021-06-13 10:49 | MHC.SHP ---
Pre-Procedural Eval Section A Date of Service: 06/13/21 Section B Chief Complaint: screening Relevant Family History (Specify if Yes): No Relevant Social History: Tobacco Use (alcohol daily ) Present Medications: see Short Stay Collaborative assessment Medical History: Significant History (Disc degeneration, lumbar HTN (hypertension)) History of Previous Operations: Relevant previous surgery/procedure and date(s) (History of section) Allergies: Allergies Allergy/AdvReac Type Severity Reaction Status Date / Time bee pollen [BEE STINGS] Allergy Unknown SWELLING Verified 06/10/21 11:44 Review of Systems Sugical H&P ROS: Negative: Constitution, Cardiovascular, Respiratory, Neurological, Psychiatric, Hem-Onc, Allergic/Immunologic, Gastrointestinal, Genitourinary, Musculoskeletal, Integumentary, Endocrine and Eyes/Ears/Nose/Throat Exam Surgical H&P Exam: Normal: HEENT, Normal: Heart, Normal: Lungs, Normal: Extremities, Normal: Abdomen, Normal: Skin and Normal: Neurological Plan Diagnosis/Plan: Unchanged I have reviewed the history and physical and performed a pertinent physical examination on my patient. No changes have occurred unless specified.
--- NOTE | 2021-06-13 11:13 | PC.NURSE ---
left a message to call preop back if not coming for procedure. awaiting call back
--- NOTE | 2021-06-13 12:10 | PC.NURSE ---
Patient reports drinking water all day since this morning, about 3 bottles Denies any food or other liquids. Dr Wu made aware and okayed to proceed.
[2021-06-13 12:11] VITALS: BP 159/85; PULSE 112; RESP 18; TEMP 36.2; O2SAT 97
--- NOTE | 2021-06-13 12:38 | P.BOP_ITS ---
Brief Operative Note Date of Service: 06/13/21 Pre-op diagnosis: colon screening Post-op diagnosis: same Procedure: see op note Surgeon: Carlos Simental MD Anesthesia: MAC Was an Picker/Puller used for this Procedure?: No Estimated blood loss (mL): 0 Condition: stable Disposition: PACU
--- NOTE | 2021-06-13 12:39 | W.PM.OPN ---
Operative Note Operative Note Date of Service: 06/13/21 Narrative: Operative Information Procedure Description: Colonoscopy Indication: colon screening Anesthesia: MAC COLONOSCOPY Instrument: Olympus variable stiffness pediatric scope 190L Colonoscopy Monitoring: Vital signs and clinical assessment, continuous EKG monitoring, Pulse oximetry, Carbon Dioxide monitoring and blood pressure monitoring were done throughout the procedure. Colon withdrawal time was 19 minutes. Procedure: The patient was placed in the left lateral decubitis position and pre-procedure medications were administered. After a digital rectal examination of the ano-rectum, the video colonoscope was inserted into the rectum and advanced through the colon to the cecum/TI. The colonoscope was slowly withdrawn in a retrograde panoramic fashion and the colon mucosa was carefully examined including a retroflexed view of the rectum. Findings and interventions are described below. Procedure Difficulty: moderately difficult, pressure applied and turned on back to intubate cecum Findings: Terminal Ileum-normal, superficial erosion at the lip of ileocecal valve, unable to biopsy deu to unstable scope position but the rest of ileum was normal Cecum: x 2 sessile polyps 8-10 mm removed with cold forceps, one site was oozing and one clip applied for hemostasis Ascending Colon: normal Transverse Colon -normal Descending Colon:normal Sigmoid Colon: normal Rectum: Retroflexion with moderate sized internal hemorrhoids, grade I Anorectum - normal Colon preparation: [place] Bowel Preparation Scale Right colon; 2 Transverse colon: 2 Left colon; 2 (0 = Unprepared colon segment with mucosa not seen due to solid stool that cannot be cleared. 1 = Portion of mucosa of the colon segment seen, but other areas of the colon segment not well seen due to staining, residual stool and/or opaque liquid. 2 = Minor amount of residual staining, small fragments of stool and/or opaque liquid, but mucosa of colon segment seen well. 3 = Entire mucosa of colon segment seen well with no residual staining, small fragments of stool or opaque liquid) Impression and Post Procedure Diagnosis: tortuous colon colon polyps internal hemorrhoids Plan: High fiber diet leaflet Avoid straining at stool, epsom salts and sitz bath, anusol supps or cream Repeat Colonoscopy in 5 years if pre cancerous polyps on path, otherwise 10 yrs or earlier if clinically indicated check for nsaid use if no RLQ pain or other Gi sx then no further w/u otherwise can consider CTe Above findings were reviewed with the patient and relevant handouts were provided if indicated.
--- NOTE | 2021-06-13 13:16 | HO.ANESPROP2 ---
FORMERLY [facility] Active Problems Active Problems: All Active Problems (Updated 06/10/21 @ 11:21 by WINSOME Willis) Weakness of both lower extremities (Acute) Alcohol abuse (Acute) Wrist laceration (Acute) Depression, major, severe recurrence (Acute) Suicidal ideation (Acute) Pre-op evaluation (Acute) Compression fx, lumbar spine (Acute) Mass of arm (Acute) Pain of back and right lower extremity (Acute) Screening for colon cancer (Acute) Skin nodule (Acute) Left adrenal mass (Acute) Dermoid cyst of arm (Acute) Disc degeneration, lumbar (Acute) Past Medical History Medical History Disc degeneration, lumbar HTN (hypertension) Family History Family History Father No problems noted. Mother Asthma COPD (chronic obstructive pulmonary disease) Bronchitis Pleurisy Sister No problems noted. Sister Cervical cancer Son No problems noted. Daughter No problems noted. Family history of problems with anesthesia: No Surgical History Surgical History History of section History of Problems with Anesthesia: No Social History Social History Housing: Other Housing Other:: hotel Alcohol intake: current Alcohol intake frequency: 3 or more drinks per day Alcohol type: beer Patient Tobacco Use Status: Current everyday Tobacco user Tobacco use type: Cigarette Cigarette Packs Per Day: 0.5 Cigarettes Per Day: 10 Years Smoked: 30 e-Cigarette/Vaping Use: Never Used Second Hand Smoke Exposure: No Use of substances other than those prescribed or required for medical reasons: No Are you DNR?: No Advance Directives: No Advance Directives Information Provided: Yes Current occupational status: disabled Cognitive needs: No Hearing needs: No Vision needs: No Meds Allergies Allergy/AdvReac Type Severity Reaction Status Date / Time bee pollen [BEE STINGS] Allergy Unknown SWELLING Verified 06/10/21 11:44 Home Medications Medication Instructions Recorded Confirmed Last Taken Type cyclobenzaprine 5 mg tablet 1 tab PO BID PRN 04/17/21 06/10/21 Unknown History losartan 50 mg-hydrochlorothiazide 1 tab PO DAILY 04/17/21 06/10/21 Unknown History 12.5 mg tablet Exam Exam Date and Time: June 13, 2021 1316 Height,Weight and Vital Signs: Height 5 ft 4 in Weight 60.328 kg Last Vital Signs Temp 97.2 F 06/13/21 12:11 Pulse 112 H 06/13/21 12:11 Resp 18 06/13/21 12:11 BP 159/85 H 06/13/21 12:11 Pulse Ox 97 06/13/21 12:11 Airway Mallampati Class: II TM Dist: >3cm Neck ROM: Full Heart: RRR Lungs: CTA Assessment and Plan Final Anesthetic Review Family History of Problems with Anesthesia: No History of Problems with Anesthesia: No ASA Class: II Final Preanesthetic Review: No Changes in Pt Med Stat, Meds/Allgs Chart Reviewed, Consent Obtained/Reviewed and Anes Risks/Benef Reviewed Patient Risk: Low Procedure Risk: Low Anesthetic Plan Anesthetic Plan: MAC: Disposition: Standard PACU
[2021-06-13 13:35] VITALS: BP 137/68; PULSE 98; RESP 16; TEMP 36.2; O2SAT 97
[2021-06-13 13:50] VITALS: BP 159/89; PULSE 86; RESP 17; TEMP 36.1; O2SAT 97
--- NOTE | 2021-06-13 13:53 | HO.POSTANES ---
Post Anesthesia Evaluation Post Anesthesia Evaluation Vital Signs: Vital Signs Temp Pulse Resp BP Pulse Ox 06/13/21 13:35 97.1 F 98 16 137/68 97 06/13/21 12:11 97.2 F 112 H 18 159/85 H 97 Anesthesia: Monitored Mental Status: Awake Pain Control: Satisfactory Nausea/Vomiting: None Hydration: Adequate Anesthesia-Related Issues: No Anes. Related Issues
[2021-06-13 14:05] VITALS: BP 170/80; PULSE 84; TEMP 36.2; O2SAT 96
== END 2021-06-13 14:59 ==
LOC: HO.SSS 11:57
PROVIDERS: PCP Nurse Practitioner Family; Visit Provider Internal Medicine Gastroenterology
PROC: 0DJD8ZZ Inspection of Lower Intestinal Tract, Via Natural or Artificial Opening Endoscopic (ICD-10-PCS; CPT 45378; principal; 2021-06-13 12:40)
DX: Z12.11 Encounter for screening for malignant neoplasm of colon (principal); D12.0 Benign neoplasm of cecum; K64.0 First degree hemorrhoids; K63.89 Other specified diseases of intestine; I10 Essential (primary) hypertension; J44.9 Chronic obstructive pulmonary disease, unspecified; M51.36 Other intervertebral disc degeneration, lumbar region; R29.898 Other symptoms and signs involving the musculoskeletal system; F10.10 Alcohol abuse, uncomplicated; Z79.899 Other long term (current) drug therapy; F17.210 Nicotine dependence, cigarettes, uncomplicated
CPT/HCPCS: 45380; 88305; J2765

== ENCOUNTER 2021-09-05 13:22 | Outpatient (REF) | payer OTHER, SELFPAY ==
[2021-09-05 16:33] LABS: MANUAL DIFF FLAG NO
[2021-09-05 16:35] LABS: Basophils Absolute Auto 0.1 X10*3/uL (0.0-0.2); Basophils Percent Auto 0.8 % (0-2); Eosinophils Absolute Auto 0.1 X10*3/uL (0.0-0.4); Eosinophils Percent Auto 1.3 % (0-4); Hematocrit 39.5 % (37.0-47.0); Hemoglobin 13.7 g/dl (12.0-16.0); Imm Gran Abs Auto 0.03 X10*3/uL (0.00-0.03); Imm Gran Pct Auto 0.3 % (0.0-0.4); Lymphocytes Absolute Auto 3.6 X10*3/uL (1.2-4.9); Lymphocytes Percent Auto 35.9 % (20-40); Mean Corpuscular HGB Conc 34.7 g/dl (31.0-35.0); Mean Corpuscular Hemoglobin 34.3 pg (27.0-33.0); Mean Corpuscular Volume 98.8 fL (80.0-98.0); Mean Platelet Volume 11.7 fL (9.4-12.3); Monocytes Percent Auto 10.1 % (2-11); NRBC Pct Auto 0.2 /100WBC (0.0-0.2); Neutrophils Absolute Auto 5.2 x10*3/uL (2.0-8.3); Neutrophils Percent Auto 51.6 % (45-73); Platelet Count 151 X10*3/uL (160-400); Red Cell Distribution Width 13.1 % (11.0-16.0)
[2021-09-05 17:18] LABS: Folate 11.5 ng/mL (> or = 4.0); Vitamin B12 939 pg/mL (200-900)
== END 2021-09-05 13:23 | disposition home or self-care (01) ==
LOC: HO.HMGCLDS 13:22
PROVIDERS: Visit Provider Nurse Practitioner Family
DX: G25.2 Other specified forms of tremor (principal); Z72.89 Other problems related to lifestyle
CPT/HCPCS: 36415; 82607; 82746; 85025

== ENCOUNTER 2021-09-26 10:43 | Outpatient (REF) | payer OTHER, SELFPAY ==
[2021-10-02 14:07] LABS: Parietal Cell Antibody <=20.0 Unit (<=20.0)
[2021-10-02 22:12] LABS: Intrinsic Factor Antibodies Positive (Negative)
== END 2021-09-26 10:44 | disposition home or self-care (01) ==
LOC: HO.HMGCLDS 10:43
PROVIDERS: PCP Nurse Practitioner Family; Visit Provider Nurse Practitioner Family
DX: E53.8 Deficiency of other specified B group vitamins (principal)
CPT/HCPCS: 36415; 83516; 86340

== ENCOUNTER 2021-12-12 09:31 | Outpatient (REF) | payer OTHER, SELFPAY ==
--- NOTE | ~2021-12-12 | MM_ITS ---
EXAMINATION: MM SCREENING DIGITAL BREAST TOMOSYNTHESIS, BILATERAL CLINICAL INFORMATION: Screening. Asymptomatic. History LCIS right breast, 2018. Due for yearly. COMPARISON: Mammography: 12/11/2020, 08/03/2018, 01/13/2018, 03/05/2017, 07/23/2017, 05/22/2017 TECHNIQUE: Digital breast tomosynthesis is performed in both the craniocaudal and mediolateral oblique views along with computer-aided detection (CAD). Synthesized 2D images are generated from the tomosynthesis. FINDINGS: The breasts are heterogeneously dense, which may obscure small masses (ACR BI-RADS breast composition Category c). Fibronodular parenchymal pattern is again noted with some waxing and waning smooth nodularity as before. There is no interval dominant mass or architectural abnormality or developing density. Again, there is old scarring posterior upper inner right breast and mid upper left breast. Again, there are diffuse bilateral calcifications, mixture of coarse, round, rim, and punctate fine. No significant changes from prior studies. The axilla and skin contours are unremarkable. MM/MM tomosynthesis screening BI IMPRESSION: No significant changes from prior studies. ASSESSMENT: BI-RADS 2: Benign RECOMMENDATION: Routine annual mammography screening. This patient's information was entered into a reminder system with a target due date for their next mammogram.
== END 2021-12-12 09:32 | disposition home or self-care (01) ==
LOC: HO.MAMMO 09:31
PROVIDERS: PCP Nurse Practitioner Family; Visit Provider Nurse Practitioner Family
DX: Z12.31 Encounter for screening mammogram for malignant neoplasm of breast (principal)
CPT/HCPCS: 77063; 77067

== ENCOUNTER 2022-03-23 13:26 | Emergency (ER) | payer OTHER, SELFPAY ==
--- NOTE | 2022-03-23 13:37 | ED_ITS ---
HPI - Back Pain/Injury General Chief Complaint: Back Pain/Injury <Marilee Zhang CNP - Last Filed: 03/23/22 13:50> Stated Complaint: Lower back pain/SOB <Marilee Zhang CNP - Last Filed: 03/23/22 13:50> Time Seen by Provider: 03/23/22 14:17 <Marilee Zhang CNP - Last Filed: 03/23/22 13:50> Source: patient <Mira Alvarado MD - Last Filed: 03/23/22 16:28> Mode of arrival: ambulatory <Mira Alvarado MD - Last Filed: 03/23/22 16:28> History of Present Illness HPI Narrative: This is a 57-year-old female with alcohol use disorder, she states she is taking B12 along with her blood pressure medication every day and has taken it today and presents with reports of decreased mobility in the bilateral lower extremities and increasing lower back pain. She denies any bowel or bladder dysfunction and denies any recent traumas, fevers, chills, groin numbness. <Mira Alvarado MD - Last Filed: 03/23/22 16:28> Related Data Home Medications: Previous Rx's Medication Instructions Recorded albuterol sulfate 90 mcg/actuation 1 puff inhalation QID PRN 06/10/21 aerosol inhaler (ProAir HFA) shortness of breath or wheezing #8.5 grams oxycodone 5 mg tablet 5 mg PO DAILY PRN pain 7 days #7 10/17/21 tabs cyanocobalamin (vitamin B-12) See Rx Instructions subcut DAILY 1 12/21/21 1,000 mcg/mL injection kit week #10 ea cyclobenzaprine 5 mg tablet 5 mg PO BID PRN pain 20 days #40 02/27/22 tabs losartan 50 mg-hydrochlorothiazide 1 tab PO DAILY 90 days #90 tabs 02/27/22 12.5 mg tablet mecobalamin (vitamin B12) 1,000 1,000 mcg PO DAILY #90 tabs 02/27/22 mcg chewable tablet <Marilee Zhang CNP - Last Filed: 03/23/22 13:50> Allergies/Adverse Reactions: Allergies Allergy/AdvReac Type Severity Reaction Status Date / Time bee pollen [BEE STINGS] Allergy Unknown SWELLING Verified 06/10/21 11:44 <Marilee Zhang CNP - Last Filed: 03/23/22 13:50> Review of Systems Review of Systems: Pertinent positives and negatives as stated in HPI <Mira Alvarado MD - Last Filed: 03/23/22 16:28> PMFSH Past Medical History Source: nursing notes reviewed <Mira Alvarado MD - Last Filed: 03/23/22 16:28> Medical History: Medical History Disc degeneration, lumbar HTN (hypertension) <Marilee Zhang CNP - Last Filed: 03/23/22 13:50> Surgical History: Surgical History History of section <Marilee Zhang CNP - Last Filed: 03/23/22 13:50> Family History Family History: Family History Father No problems noted. Mother Asthma COPD (chronic obstructive pulmonary disease) Bronchitis Pleurisy Sister No problems noted. Sister Cervical cancer Son No problems noted. Daughter No problems noted. <Marilee Zhang CNP - Last Filed: 03/23/22 13:50> Social History Social History: Social History Housing: Other Housing Other:: hotel Alcohol intake: current Alcohol intake frequency: 3 or more drinks per day Alcohol type: beer Patient Tobacco Use Status: Current everyday Tobacco user Tobacco use type: Cigarette Cigarette Packs Per Day: 0.5 Cigarettes Per Day: 10 Years Smoked: 30 e-Cigarette/Vaping Use: Never Used Second Hand Smoke Exposure: No Advance Directives: Yes Advance Directives Information Provided: Yes Advance Directives on File: No Current occupational status: disabled Cognitive needs: No Hearing needs: No Vision needs: No <Marilee Zhang CNP - Last Filed: 03/23/22 13:50> Physical Exam Vital Signs: Vital Signs: Last Vital Signs Temp 97.6 F 03/23/22 13:42 Pulse 113 H 03/23/22 13:42 Resp 18 03/23/22 13:42 BP 92/60 03/23/22 13:42 Pulse Ox 96 03/23/22 13:42 O2 Del Method 03/23/22 13:42 BMI result Body Mass Index 21.4 <Marilee Faviolamanjit Zhang CNP - Last Filed: 03/23/22 13:50> Vital Signs: Last Vital Signs Temp 97.6 F 03/23/22 13:42 Pulse 113 H 03/23/22 13:42 Resp 18 03/23/22 13:42 BP 92/60 03/23/22 13:42 Pulse Ox 96 03/23/22 13:42 O2 Del Method 03/23/22 13:42 BMI result Body Mass Index 21.4 VITAL SIGNS: Reviewed. GENERAL: Appears older than stated age, in no acute distress. HEAD: Normocephalic/atraumatic EYES: PERRLA, EOMI EARS: Ext canals without abnormality OROPHARYNX: no oral lesions noted, posterior pharynx clear LUNGS: Normal breath sounds. No adventitious sounds or accessory muscle use. SpO2<96> CARDIOVASCULAR: Regular rate and rhythm without noted murmurs, no JVD or lower extremity edema. ABDOMEN: Soft, non-tender, non-distended with bowel sounds. LIDA: There is excellent rectal tone with soft brown stool in the rectal vault and no numbness on evaluation of groin area BACK: There is no midline vertebral tenderness to palpation or step-offs, no erythema or induration or noted injury. MUSCULOSKELETAL: No tenderness, deformities, or effusions noted on gross inspect ion. EXTREMITIES: No cyanosis, clubbing or edema. SKIN: Inspection of the skin reveals no rashes NEUROLOGIC: Alert and oriented x 4. Strength and sensation to light touch were grossly intact x 4, slow movement of bilateral lower extremities, DTRs are intact. <Mira Alvarado MD - Last Filed: 03/23/22 16:28> Course Course Course Narrative: This is an RME: Additional HPI, ROS, PE not included below will be deferred to primary provider. Patient is a 57-year-old female presents to the emergency department for mid/lower back pain after a fall today, states she began feeling weak while outside and my legs just dropped uncertain why this occured, causing her to fall land on her back. Denies headstrike or LOC, was able to get herself up, ambulatory after the fall. Sitting in wheelchair at the time of examination. No midline cervical spine pain, no evidence of head trauma. Reports history of L3 vertebral fracture, with prior surgical treatment by her report. Placed back to waiting room pending room availability. Plan: labs, EKG <Marilee Zhang CNP - Last Filed: 03/23/22 13:50> Medications Administered Discontinued Medications Generic Name Dose Route Start Last Admin Trade Name Freq PRN Reason Stop Dose Admin Acetaminophen 975 mg 03/23/22 15:56 03/23/22 16:08 Acetaminophen 325 Mg Tablet PO 03/23/22 15:57 975 mg ONCE ONE Administration Ibuprofen 400 mg 03/23/22 15:56 03/23/22 16:08 Ibuprofen 400 Mg Tablet PO 03/23/22 15:57 400 mg ONCE ONE Administration Lidocaine 1 patch 03/23/22 15:56 03/23/22 16:09 Lidocaine 4 % Patch Adh..Patch TRANSDERMA 03/23/22 15:57 Not Given ONCE ONE Protocol <Marilee Zhang CNP - Last Filed: 03/23/22 13:50> Medications Administered Discontinued Medications Generic Name Dose Route Start Last Admin Trade Name Freq PRN Reason Stop Dose Admin Acetaminophen 975 mg 03/23/22 15:56 03/23/22 16:08 Acetaminophen 325 Mg Tablet PO 03/23/22 15:57 975 mg ONCE ONE Administration Ibuprofen 400 mg 03/23/22 15:56 03/23/22 16:08 Ibuprofen 400 Mg Tablet PO 03/23/22 15:57 400 mg ONCE ONE Administration Lidocaine 1 patch 03/23/22 15:56 03/23/22 16:09 Lidocaine 4 % Patch Adh..Patch TRANSDERMA 03/23/22 15:57 Not Given ONCE ONE Protocol <Mira Alvarado MD - Last Filed: 03/23/22 16:28> Medical Decision Making Medical Decision Making MDM Narrative: This is a 57-year-old female who does not have complaints of an ascending numbness or weakness in bilateral lower extremities, patient also has prior visit in March/2021 as well as February/2021 for similar back difficulties. She has no IVDA history and that taken in conjunction with clinical exam is not consistent with concerns for diskitis/spinal abscess, I have no clinical james picion for cauda equina at present and do not think that this is an ascending neurologic problem. Instead, I feel that this is likely secondary to patient's poor nutrition with continued alcohol use and although patient describes continuing with her vitamin B12 suspect this is likely attributable to vitamin B12/folate deficit. Labs, analgesics I reviewed all laboratory investigations and there is no evidence to suggest acute infection, acute anemia, BAL-204, patient provided with combination analgesics and on re-evaluation she feels much better and is stable for discharge to home. <Mira Alvarado MD - Last Filed: 03/23/22 16:28> Differential Diagnosis Differential Diagnoses: The differential diagnosis associated with the presentation includes <Mira Alvarado MD - Last Filed: 03/23/22 16:28> Please see the discussion above <Mira Alvarado MD - Last Filed: 03/23/22 16:28> Lab Data MDM Lab Attestation statement: I reviewed the patient's lab results. <Mira Alvarado MD - Last Filed: 03/23/22 16:28> Please see the discussion above <Mira Alvarado MD - Last Filed: 03/23/22 16:28> Result Diagrams: 03/23/22 14:12 03/23/22 14:12 <Marilee Zhang CNP - Last Filed: 03/23/22 13:50> Labs: Lab Results 03/23/22 03/23/22 03/23/22 Range/Units 14:12 14:12 14:12 WBC 10.4 (4.8-10.8) X10*3/uL RBC 4.30 (4.20-5.50) X10*6/uL Hgb 14.7 (12.0-16.0) g/dl Hct 41.7 (37.0-47.0) % MCV 97.0 (80.0-98.0) fL MCH 34.2 H (27.0-33.0) pg MCHC 35.3 H (31.0-35.0) g/dl RDW 13.9 (11.0-16.0) % Plt Count 238 D (160-400) X10*3/uL MPV 10.5 (9.4-12.3) fL Immature Gran % (Auto) 0.2 (0.0-0.4) % Neut % (Auto) 44.6 L (45-73) % Lymph % (Auto) 40.9 H (20-40) % [place] % (Auto) 10.3 (2-11) % Eos % (Auto) 3.3 (0-4) % Baso % (Auto) 0.7 (0-2) % Lymph # (Auto) 4.2 (1.2-4.9) X10*3/uL [place] # (Auto) 1.1 (0.1-1.2) X10*3/uL Eos # (Auto) 0.3 (0.0-0.4) X10*3/uL Baso # (Auto) 0.1 (0.0-0.2) X10*3/uL Abs Immat Gran (auto) 0.02 (0.00-0.03) X10*3/uL Absolute Neuts (auto) 4.6 (2.0-8.3) x10*3/uL Absolute Nucleated RBC 0.000 (0.0-0.012) X10*3/uL Nucleated RBC % (auto) 0.0 (0.0-0.2) /100WBC Sodium 138 (135-145) mmol/L Potassium 3.5 (3.3-5.1) mmol/L Chloride 102 (96-108) mmol/L Carbon Dioxide 22 (22-29) mmol/L Anion Gap 18 (12-20) BUN 13 (9-16) mg/dL Creatinine 0.79 (0.5-1.4) mg/dL Estim Creat Clear Calc 68.6 Estimated GFR > 60 Random Glucose 102 (60-115) mg/dL Calcium 9.1 (8.4-10.2) mg/dL Magnesium 2.1 (1.6-2.6) mg/dL Total Bilirubin 0.3 (0.0-1.0) mg/dL AST 35 H (5-31) U/L ALT 20 (0-31) U/L Alkaline Phosphatase 129 H (39-117) U/L Troponin I High Sens 15.9 (<3.5-17.0) ng/L Total Protein 6.7 (6.5-8.0) g/dL Albumin 3.8 (3.5-5.0) g/dL Urine Color Urine Appearance Urine pH (5.0-9.0) Ur Specific [place] (1.005-1.025) Urine Protein (Neg-Trace) mg/dL Urine Glucose (UA) (Negative) mg/dL Urine Ketones (Negative) mg/dL Urine Blood (Negative) Urine Nitrite (Negative) Ur Leukocyte Esterase (Negative) Ethyl Alcohol 204 mg/dL COVID-19 (NIKI) (Negative) COVID-19 Clin Com 03/23/22 03/23/22 Range/Units 14:12 15:35 WBC (4.8-10.8) X10*3/uL RBC (4.20-5.50) X10*6/uL Hgb (12.0-16.0) g/dl Hct (37.0-47.0) % MCV (80.0-98.0) fL MCH (27.0-33.0) pg MCHC (31.0-35.0) g/dl RDW (11.0-16.0) % Plt Count (160-400) X10*3/uL MPV (9.4-12.3) fL Immature Gran % (Auto) (0.0-0.4) % Neut % (Auto) (45-73) % Lymph % (Auto) (20-40) % [place] % (Auto) (2-11) % Eos % (Auto) (0-4) % Baso % (Auto) (0-2) % Lymph # (Auto) (1.2-4.9) X10*3/uL [place] # (Auto) (0.1-1.2) X10*3/uL Eos # (Auto) (0.0-0.4) X10*3/uL Baso # (Auto) (0.0-0.2) X10*3/uL Abs Immat Gran (auto) (0.00-0.03) X10*3/uL Absolute Neuts (auto) (2.0-8.3) x10*3/uL Absolute Nucleated RBC (0.0-0.012) X10*3/uL Nucleated RBC % (auto) (0.0-0.2) /100WBC Sodium (135-145) mmol/L Potassium (3.3-5.1) mmol/L Chloride (96-108) mmol/L Carbon Dioxide (22-29) mmol/L Anion Gap (12-20) BUN (9-16) mg/dL Creatinine (0.5-1.4) mg/dL Estim Creat Clear Calc Estimated GFR Random Glucose (60-115) mg/dL Calcium (8.4-10.2) mg/dL Magnesium (1.6-2.6) mg/dL Total Bilirubin (0.0-1.0) mg/dL AST (5-31) U/L ALT (0-31) U/L Alkaline Phosphatase (39-117) U/L Troponin I High Sens (<3.5-17.0) ng/L Total Protein (6.5-8.0) g/dL Albumin (3.5-5.0) g/dL Urine Color Yellow Urine Appearance Clear Urine pH 6.5 (5.0-9.0) Ur Specific [place] <= 1.005 (1.005-1.025) Urine Protein Negative (Neg-Trace) mg/dL Urine Glucose (UA) Negative (Negative) mg/dL Urine Ketones Negative (Negative) mg/dL Urine Blood Negative (Negative) Urine Nitrite Negative (Negative) Ur Leukocyte Esterase Negative (Negative) Ethyl Alcohol mg/dL COVID-19 ([facility]KI) Negative (Negative) COVID-19 Clin Com See Note <Marilee Zhang, CREATIVE WRITING PROFESSOR - Last Filed: 03/23/22 13:50> Lab Results 03/23/22 03/23/22 03/23/22 Range/Units 14:12 14:12 14:12 WBC 10.4 (4.8-10.8) X10*3/uL RBC 4.30 (4.20-5.50) X10*6/uL Hgb 14.7 (12.0-16.0) g/dl Hct 41.7 (37.0-47.0) % MCV 97.0 (80.0-98.0) fL MCH 34.2 H (27.0-33.0) pg MCHC 35.3 H (31.0-35.0) g/dl RDW 13.9 (11.0-16.0) % Plt Count 238 D (160-400) X10*3/uL MPV 10.5 (9.4-12.3) fL Immature Gran % (Auto) 0.2 (0.0-0.4) % Neut % (Auto) 44.6 L (45-73) % Lymph % (Auto) 40.9 H (20-40) % [place] % (Auto) 10.3 (2-11) % Eos % (Auto) 3.3 (0-4) % Baso % (Auto) 0.7 (0-2) % Lymph # (Auto) 4.2 (1.2-4.9) X10*3/uL [place] # (Auto) 1.1 (0.1-1.2) X10*3/uL Eos # (Auto) 0.3 (0.0-0.4) X10*3/uL Baso # (Auto) 0.1 (0.0-0.2) X10*3/uL Abs Immat Gran (auto) 0.02 (0.00-0.03) X10*3/uL Absolute Neuts (auto) 4.6 (2.0-8.3) x10*3/uL Absolute Nucleated RBC 0.000 (0.0-0.012) X10*3/uL Nucleated RBC % (auto) 0.0 (0.0-0.2) /100WBC Sodium 138 (135-145) mmol/L Potassium 3.5 (3.3-5.1) mmol/L Chloride 102 (96-108) mmol/L Carbon Dioxide 22 (22-29) mmol/L Anion Gap 18 (12-20) BUN 13 (9-16) mg/dL Creatinine 0.79 (0.5-1.4) mg/dL Estim Creat Clear Calc 68.6 Estimated GFR > 60 Random Glucose 102 (60-115) mg/dL Calcium 9.1 (8.4-10.2) mg/dL Magnesium 2.1 (1.6-2.6) mg/dL Total Bilirubin 0.3 (0.0-1.0) mg/dL AST 35 H (5-31) U/L ALT 20 (0-31) U/L Alkaline Phosphatase 129 H (39-117) U/L Troponin I High Sens 15.9 (<3.5-17.0) ng/L Total Protein 6.7 (6.5-8.0) g/dL Albumin 3.8 (3.5-5.0) g/dL Urine Color Urine Appearance Urine pH (5.0-9.0) Ur Specific [place] (1.005-1.025) Urine Protein (Neg-Trace) mg/dL Urine Glucose (UA) (Negative) mg/dL Urine Ketones (Negative) mg/dL Urine Blood (Negative) Urine Nitrite (Negative) Ur Leukocyte Esterase (Negative) Ethyl Alcohol 204 mg/dL COVID-19 (NIKI) (Negative) COVID-19 Clin Com 03/23/22 03/23/22 Range/Units 14:12 15:35 WBC (4.8-10.8) X10*3/uL RBC (4.20-5.50) X10*6/uL Hgb (12.0-16.0) g/dl Hct (37.0-47.0) % MCV (80.0-98.0) fL MCH (27.0-33.0) pg MCHC (31.0-35.0) g/dl RDW (11.0-16.0) % Plt Count (160-400) X10*3/uL MPV (9.4-12.3) fL Immature Gran % (Auto) (0.0-0.4) % Neut % (Auto) (45-73) % Lymph % (Auto) (20-40) % [place] % (Auto) (2-11) % Eos % (Auto) (0-4) % Baso % (Auto) (0-2) % Lymph # (Auto) (1.2-4.9) X10*3/uL [place] # (Auto) (0.1-1.2) X10*3/uL Eos # (Auto) (0.0-0.4) X10*3/uL Baso # (Auto) (0.0-0.2) X10*3/uL Abs Immat Gran (auto) (0.00-0.03) X10*3/uL Absolute Neuts (auto) (2.0-8.3) x10*3/uL Absolute Nucleated RBC (0.0-0.012) X10*3/uL Nucleated RBC % (auto) (0.0-0.2) /100WBC Sodium (135-145) mmol/L Potassium (3.3-5.1) mmol/L Chloride (96-108) mmol/L Carbon Dioxide (22-29) mmol/L Anion Gap (12-20) BUN (9-16) mg/dL Creatinine (0.5-1.4) mg/dL Estim Creat Clear Calc Estimated GFR Random Glucose (60-115) mg/dL Calcium (8.4-10.2) mg/dL Magnesium (1.6-2.6) mg/dL Total Bilirubin (0.0-1.0) mg/dL AST (5-31) U/L ALT (0-31) U/L Alkaline Phosphatase (39-117) U/L Troponin I High Sens (<3.5-17.0) ng/L Total Protein (6.5-8.0) g/dL Albumin (3.5-5.0) g/dL Urine Color Yellow Urine Appearance Clear Urine pH 6.5 (5.0-9.0) Ur Specific [place] <= 1.005 (1.005-1.025) Urine Protein Negative (Neg-Trace) mg/dL Urine Glucose (UA) Negative (Negative) mg/dL Urine Ketones Negative (Negative) mg/dL Urine Blood Negative (Negative) Urine Nitrite Negative (Negative) Ur Leukocyte Esterase Negative (Negative) Ethyl Alcohol mg/dL COVID-19 ([facility]) Negative (Negative) COVID-19 Clin Com See Note <Mira Alvarado MD - Last Filed: 03/23/22 16:28> Independent Interpretation I performed an independent interpretation of an: EKG <Mira Alvarado MD - Last Filed: 03/23/22 16:28> Interpretation: Normal sinus rhythm, HR-87, no STEMI, AK/QRS/QTC are within normal limits. <Mira Alvarado MD - Last Filed: 03/23/22 16:28> External Record Review External record reviewed: Outpatient record and Prior outpatient labs <Mira Alvarado MD - Last Filed: 03/23/22 16:28> Chronic Conditions Patient?s care impacted by: Hypertension and Other <Mira Alvarado MD - Last Filed: 03/23/22 16:28> Alcohol use disorder <Mira Alvarado MD - Last Filed: 03/23/22 16:28> Discharge Plan Discharge Clinical Impression: Acute exacerbation of chronic low back pain <Marilee Zhang CNP - Last Filed: 03/23/22 13:50> Patient Disposition: Still a Patient <Marilee Salmeron ANGELICA Zhang - Last Filed: 03/23/22 13:50> Instructions: Back Pain (ED), Lower Back Exercises (ED) <Marilee Zhang CNP - Last Filed: 03/23/22 13:50> Additional Instructions: 1. Recommend [id number] Tylenol/ibuprofen as needed for pain control. In addition, I would consider a lidocaine patch for additional symptom relief. 2. Follow-up with your primary care provider as you will likely benefit from a physical therapy referral. 3. If at any time your interested in detox please do not hesitate to inform us. Return to the ER for any worsening symptoms. <Marilee Zhang CNP - Last Filed: 03/23/22 13:50> Prescriptions: No Action oxycodone 5 mg tablet 5 mg PO DAILY PRN (Reason: pain) 7 Days Qty: 7 0RF cyanocobalamin (vitamin B-12) 1,000 mcg/mL kit See Rx Instructions subcut DAILY 7 Days Qty: 10 0RF Rx Instructions: daily for one week, then weekly for one month subcut daily; cyclobenzaprine 5 mg tablet 5 mg PO BID PRN (Reason: pain) 20 Days Qty: 40 0RF losartan-hydrochlorothiazide 50-12.5 mg tablet 1 tab PO DAILY 90 Days Qty: 90 0RF mecobalamin (vitamin B12) 1,000 mcg tablet,chewable 1,000 mcg PO DAILY Qty: 90 0RF albuterol sulfate [ProAir HFA] 90 mcg/actuation HFA aerosol inhaler 1 puff inhalation QID PRN (Reason: shortness of breath or wheezing) Qty: 8.5 5RF <Marilee Zhang CNP - Last Filed: 03/23/22 13:50> Referrals: Lamonte Mon, [facility] [Primary Care Provider] - <Marilee Zhang CNP - Last Filed: 03/23/22 13:50>
[2022-03-23 13:42] VITALS: BP 92/60; PULSE 113; RESP 18; TEMP 36.4; O2SAT 96; BMI 21.4
--- NOTE | 2022-03-23 13:46 | ECG_ITS ---
Test Reason : back pain Blood Pressure : / mmHG Vent. Rate : 087 BPM Atrial Rate : 087 BPM P-R Int : 134 ms QRS Dur : 086 ms QT Int : 374 ms P-R-T Axes : 060 045 084 degrees QTc Int : 450 ms Normal sinus rhythm Normal ECG When compared to the previous EKG of No significant changes seen Referred By: Marilee Zhang Electronically Signed By:Ayad Pillai
[2022-03-23 14:18] LABS: MANUAL DIFF FLAG NO
[2022-03-23 14:19] LABS: Basophils Absolute Auto 0.1 X10*3/uL (0.0-0.2); Basophils Percent Auto 0.7 % (0-2); Eosinophils Absolute Auto 0.3 X10*3/uL (0.0-0.4); Eosinophils Percent Auto 3.3 % (0-4); Hematocrit 41.7 % (37.0-47.0); Hemoglobin 14.7 g/dl (12.0-16.0); Imm Gran Abs Auto 0.02 X10*3/uL (0.00-0.03); Imm Gran Pct Auto 0.2 % (0.0-0.4); Lymphocytes Absolute Auto 4.2 X10*3/uL (1.2-4.9); Lymphocytes Percent Auto 40.9 % (20-40); Mean Corpuscular HGB Conc 35.3 g/dl (31.0-35.0); Mean Corpuscular Hemoglobin 34.2 pg (27.0-33.0); Mean Platelet Volume 10.5 fL (9.4-12.3); Monocytes Absolute Auto 1.1 X10*3/uL (0.1-1.2); Monocytes Percent Auto 10.3 % (2-11); Neutrophils Absolute Auto 4.6 x10*3/uL (2.0-8.3); Neutrophils Percent Auto 44.6 % (45-73); Platelet Count 238 X10*3/uL (160-400); Red Cell Distribution Width 13.9 % (11.0-16.0); White Blood Count 10.4 X10*3/uL (4.8-10.8)
[2022-03-23 14:32] LABS: Alanine Aminotransferase 20 U/L (0-31); Albumin Level 3.8 g/dL (3.5-5.0); Alkaline Phosphatase 129 U/L (39-117); Anion Gap 18 (12-20); Aspartate Amino Transferase 35 U/L (5-31); Bilirubin Total 0.3 mg/dL (0.0-1.0); Blood Urea Nitrogen 13 mg/dL (9-16); COVID-19 Test Negative (Negative); Calcium 9.1 mg/dL (8.4-10.2); Carbon Dioxide 22 mmol/L (22-29); Chloride 102 mmol/L (96-108); Creatinine Clr Calc Pharmacy 68.6; Estimated Glomerular Filt Rate > 60; Glucose Random 102 mg/dL (60-115); IDNOW Serial# 6674DD1D; Magnesium 2.1 mg/dL (1.6-2.6); Potassium 3.5 mmol/L (3.3-5.1); Sodium 138 mmol/L (135-145); Total Protein 6.7 g/dL (6.5-8.0)
[2022-03-23 14:39] LABS: Troponin-I High Sensitivity 15.9 ng/L (<3.5-17.0)
--- NOTE | 2022-03-23 14:54 | PC.NURSE ---
this nurse observed pt oob with ax1 to BR, slow steady gait with asst.
[2022-03-23 15:19] LABS: Ethanol 204 mg/dL
[2022-03-23 15:44] LABS: Appearance Urine Clear; Color Urine Yellow; Glucose Urine UA Negative (Negative); Leukocyte Esterase Urine Negative (Negative); Nitrite Urine Negative (Negative); PH 6.5 (5.0-9.0); Specific Gravity - Urine <= 1.005 (1.005-1.025); Urine Blood Negative (Negative); Urine Ketones Negative (Negative); Urine Protein Negative (Neg-Trace)
[2022-03-23] MEDS: Ibuprofen 400 MG TABLET PO (16:08)
[2022-03-23] MEDS: Acetaminophen 325 MG TABLET 975 MG PO (16:08)
--- NOTE | 2022-03-23 16:36 | PC.NURSE ---
nurse observed pt oob to BR observed holding wall, able to take a few steps unassisted- pt medicated per orders, refused lidocaine patch sts that her flexeril works for her so why use it if it doesnt work? documented refusal
[2022-03-23 16:38] LABS: Vitamin B12 1191 pg/mL (200-900)
== END 2022-03-23 16:38 | disposition still patient (30) ==
PROVIDERS: Nurse Practitioner Family; Emergency Provider Student in an Organized Health Care Education/Training Program; PCP Nurse Practitioner Family
DX: M54.50 Low back pain, unspecified (principal); R06.02 Shortness of breath; F17.210 Nicotine dependence, cigarettes, uncomplicated; Z20.828 Contact with and (suspected) exposure to other viral communicable diseases; Z20.822 Contact with and (suspected) exposure to COVID-19; Z79.899 Other long term (current) drug therapy; Z71.6 Tobacco abuse counseling
CPT/HCPCS: 36415; 80053; 81003; 82077; 82607; 83735; 84484; 85025; 87635; 93005; 99284

== ENCOUNTER 2022-05-29 10:36 | Outpatient (REF) | payer OTHER, SELFPAY ==
[2022-05-29 11:53] LABS: Appearance Urine Clear; Color Urine Yellow; Glucose Urine UA Negative (Negative); Leukocyte Esterase Urine Negative (Negative); Nitrite Urine Negative (Negative); PH 5.5 (5.0-9.0); Urine Blood Negative (Negative); Urine Ketones Negative (Negative); Urine Protein Negative (Neg-Trace)
[2022-05-29 14:25] LABS: MANUAL DIFF FLAG NO
[2022-05-29 14:29] LABS: Basophils Absolute Auto 0.1 X10*3/uL (0.0-0.2); Basophils Percent Auto 1.1 % (0-2); Eosinophils Absolute Auto 0.2 X10*3/uL (0.0-0.4); Hematocrit 45.1 % (37.0-47.0); Hemoglobin 15.5 g/dl (12.0-16.0); Imm Gran Abs Auto 0.07 X10*3/uL (0.00-0.03); Imm Gran Pct Auto 0.7 % (0.0-0.4); Lymphocytes Absolute Auto 2.6 X10*3/uL (1.2-4.9); Lymphocytes Percent Auto 26.9 % (20-40); Mean Corpuscular HGB Conc 34.4 g/dl (31.0-35.0); Mean Corpuscular Hemoglobin 33.5 pg (27.0-33.0); Mean Corpuscular Volume 97.4 fL (80.0-98.0); Mean Platelet Volume 11.3 fL (9.4-12.3); Monocytes Percent Auto 10.5 % (2-11); Neutrophils Absolute Auto 5.8 x10*3/uL (2.0-8.3); Neutrophils Percent Auto 58.8 % (45-73); Platelet Count 247 X10*3/uL (160-400); Red Blood Count 4.63 X10*6/uL (4.20-5.50); Red Cell Distribution Width 13.2 % (11.0-16.0); White Blood Count 9.8 X10*3/uL (4.8-10.8)
[2022-05-29 14:53] LABS: Alanine Aminotransferase 26 U/L (0-31); Albumin Level 4.2 g/dL (3.5-5.0); Alkaline Phosphatase 134 U/L (39-117); Anion Gap 22 (12-20); Aspartate Amino Transferase 58 U/L (5-31); Bilirubin Total 0.8 mg/dL (0.0-1.0); Blood Urea Nitrogen 12 mg/dL (9-16); Calcium 9.3 mg/dL (8.4-10.2); Carbon Dioxide 20 mmol/L (22-29); Chloride 100 mmol/L (96-108); Cholesterol 287 mg/dL; Estimated Glomerular Filt Rate > 60; Glucose Fasting 91 mg/dL (60-99); HDL Cholesterol 76 mg/dL; LDL Cholesterol Calculated 188 mg/dl; Potassium 4.2 mmol/L (3.3-5.1); Sodium 138 mmol/L (135-145); Total Protein 7.3 g/dL (6.5-8.0); Triglycerides 117 mg/dL
[2022-05-29 15:24] LABS: Folate 2.2 ng/mL (> or = 4.0); TSH reflex Free T4 3.41 uIU/mL (0.32-4.0); Vitamin B12 632 pg/mL (200-900)
== END 2022-05-29 10:37 | disposition home or self-care (01) ==
LOC: HO.HMGCLDS 10:36
PROVIDERS: PCP Nurse Practitioner Family; Visit Provider Nurse Practitioner Family
DX: E53.8 Deficiency of other specified B group vitamins (principal); E27.8 Other specified disorders of adrenal gland
CPT/HCPCS: 36415; 80053; 80061; 81003; 82607; 82746; 84443; 85025

== ENCOUNTER 2022-06-19 14:25 | Outpatient (REF) | payer OTHER, SELFPAY ==
--- NOTE | ~2022-06-19 | MR_ITS ---
MR LUMBAR SPINE WITHOUT CONTRAST CLINICAL INFORMATION: Low back pain. COMPARISON: Lumbar spine CT 05/23/2021 and lumbar spine MRI 12/13/2020. TECHNIQUE: MRI of the lumbar spine was obtained using routine sequences without contrast. FINDINGS: Axial T1 series is nondiagnostic due to significant motion artifact. Redemonstrated postoperative changes following vertebral body augmentation at L3. There is a partially imaged acute edematous sacral fracture at S2-S3 extending into the right and left sacral nathalie. There are Modic type I and Modic type II endplate signal changes at L4-L5. No additional bone marrow edema. There is moderate to severe disc volume loss at L4-L5 which is unchanged. Disc desiccation at all lumbar levels with the exception of L1-L2. Conus terminates at the T12-L1 level. No significant extraspinal soft tissue findings. L1-L2: Disc contour is normal. No central canal stenosis and no foraminal stenosis. L2-L3: Small annular disc bulge and moderate bilateral facet arthropathy. No central canal stenosis and no foraminal stenosis. Findings unchanged. L3-L4: Diffuse annular disc bulge and moderate bilateral facet arthropathy. No central canal stenosis and no foraminal stenosis. Findings unchanged. L4-L5: Diffuse annular disc bulge that is in part disc osteophyte and moderate bilateral facet arthropathy. Findings in concert result in similar mild central canal stenosis and mild bilateral foraminal encroachment. L5-S1: Diffuse annular disc bulge and mild bilateral facet arthropathy. No central canal stenosis. Mild bilateral foraminal encroachment. Findings unchanged. MR/MR lumbar spine wo con IMPRESSION: - There is a partially imaged acute edematous sacral fracture at S2-S3 extending into the right and left sacral nahtalie. - Patient is status post vertebral body augmentation at L3 with stable chronic compression deformity at this level. No acute fractures within the lumbar spine. - Stable appearing lumbar spondylosis. No severe central canal stenosis and no severe foraminal stenosis within the lumbar spine.
== END 2022-06-19 14:26 | disposition home or self-care (01) ==
LOC: HO.MRI 14:25
PROVIDERS: PCP Nurse Practitioner Family; Visit Provider Nurse Practitioner Family
DX: G89.29 Other chronic pain (principal); M54.50 Low back pain, unspecified; R29.898 Other symptoms and signs involving the musculoskeletal system
CPT/HCPCS: 72148

== ENCOUNTER 2022-06-26 16:31 | Outpatient (REF) | payer OTHER, SELFPAY ==
--- NOTE | ~2022-06-26 | MR_ITS ---
EXAMINATION: MRI ABDOMEN WITH AND WITHOUT CONTRAST CLINICAL INFORMATION: E27.8 - LEFT ADRENAL MASS COMPARISON: 06/19/2022 spine MRI TECHNIQUE: Multiple routine MRI sequences through the abdomen were obtained on a high-field 1.5Tesla MRI. Pre-and postcontrast images with 7.5 mL of Gadavist intravenous contrast were obtained. This included a dynamic contrast-enhanced technique. FINDINGS: Lung bases: The visualized lung bases are unremarkable. Liver: There is mild diffuse signal loss and out of phase imaging consistent with diffuse fatty infiltration. No focal hepatic lesion nor biliary ductal dilatation. Gallbladder: Gallbladder is unremarkable. No suspicious gallstones or filling defects. No gallbladder wall thickening or pericholecystic inflammatory changes. Pancreas: Pancreas is homogeneous in signal. No pancreatic ductal dilatation or obstruction. No peripancreatic inflammatory changes or fluid. Spleen: Unremarkable Adrenals: There is a 5.1 x 3.8 x 4.1 cm mass in the left upper quadrant. Although on the axial images this appears to closely approximating the adrenal glands the on many slices there is a fat-containing this from the majority of the adrenal gland. This may be very exophytic arising off the lower pole. The lesion so approximates the kidney although there is a fat plane this from the kidney as well. There is a fat plane this structure from the adjacent pancreas is well and although this closely approximates the adjacent bowel loops overall this does likely arise from the very exophytic lower limb of the left adrenal gland. When compared to the 12/07/2020 CT scan this had measured 5.1 x 4.1 x 1.3 cm in size likely not significantly changed from 2020. Contralateral right adrenal gland unremarkable Kidneys: Kidneys are normal in size, shape, and signal. No suspicious renal mass lesion seen. No hydronephrosis or perinephric edema. Other: No bulky adenopathy. MR/MR abdomen wo/w con IMPRESSION: There is a 5.1 cm mass lesion in the left upper quadrant. On the axial images this appears to arise from the lower limb of the left adrenal gland as described above. This is not significantly changed in size from the 12/07/2020 CT scan. Etiology is uncertain but the stability from 2020 suggests a more indolent process. On the oldest available 2006 CT scan however there was a subtle 1.5 cm left adrenal nodule at that time suggesting this has shown progressive growth since 2007. I do not appreciate any other suspicious mass lesion or adenopathy.
== END 2022-06-26 16:32 | disposition home or self-care (01) ==
LOC: HO.MRI 16:31
PROVIDERS: PCP Nurse Practitioner Family; Visit Provider Nurse Practitioner Family
DX: E27.8 Other specified disorders of adrenal gland (principal)
CPT/HCPCS: 74183; A9585

== ENCOUNTER → 2022-07-18 10:09 | Outpatient (BNVA) | payer OTHER, SELFPAY | PROVIDERS: PCP Nurse Practitioner Family; Visit Provider Internal Medicine Endocrinology, Diabetes & Metabolism | DX: E27.8 Other specified disorders of adrenal gland (principal) | CPT/HCPCS: 99202 ==

== ENCOUNTER 2022-07-25 07:05 | Outpatient (REF) | payer OTHER, SELFPAY ==
[2022-07-26 10:23] LABS: DHEA Sulfate 327 mcg/dL (5-167)
[2022-08-03 14:28] LABS: Metanephrine, Free 57 pg/mL (<=57); Normetanephrines, Free 240 pg/mL (<=148); Total Metanephrine, Free 297 pg/mL (<=205)
[2022-08-06 19:03] LABS: Dexamethasone 605 ng/dL
== END 2022-07-25 07:06 | disposition home or self-care (01) ==
LOC: HO.LAB 07:05
PROVIDERS: PCP Nurse Practitioner Family; Visit Provider Internal Medicine Endocrinology, Diabetes & Metabolism
DX: E27.8 Other specified disorders of adrenal gland (principal)
CPT/HCPCS: 36415; 80299; 82088; 82533; 82627; 83835; 84244

== ENCOUNTER 2022-08-07 12:54 | Outpatient (REF) | payer OTHER, SELFPAY ==
[2022-08-07 14:09] LABS: Creatinine, mg/dL 88.65
[2022-08-07 14:24] LABS: Creatinine, 24Hr Urine 0.9 G/Day (1.0-2.0); Total Volume 24 Hour Urine 1025 mL
[2022-08-13 22:14] LABS: Metanephrine, Free 24U 163 mcg/24 h (90-315); Normetanephrine, Free 24U 592 mcg/24 h (122-676); Total Metanephrine, Free 24U 755 mcg/24 h (224-832); Total Volume 24U 1025 mL
== END 2022-08-07 12:55 | disposition home or self-care (01) ==
LOC: HO.LNP 12:54
PROVIDERS: Visit Provider Internal Medicine Endocrinology, Diabetes & Metabolism
DX: E27.8 Other specified disorders of adrenal gland (principal)
CPT/HCPCS: 82570; 83835

== ENCOUNTER 2022-08-20 08:22 | Outpatient (REF) | payer OTHER, SELFPAY ==
[2022-08-20 08:42] LABS: MANUAL DIFF FLAG NO
[2022-08-20 08:48] LABS: Basophils Absolute Auto 0.1 X10*3/uL (0.0-0.2); Basophils Percent Auto 1.2 % (0-2); Eosinophils Absolute Auto 0.3 X10*3/uL (0.0-0.4); Eosinophils Percent Auto 4.1 % (0-4); Hematocrit 40.2 % (37.0-47.0); Hemoglobin 13.9 g/dl (12.0-16.0); Imm Gran Abs Auto 0.01 X10*3/uL (0.00-0.03); Imm Gran Pct Auto 0.1 % (0.0-0.4); Lymphocytes Absolute Auto 2.9 X10*3/uL (1.2-4.9); Lymphocytes Percent Auto 35.5 % (20-40); Mean Corpuscular HGB Conc 34.6 g/dl (31.0-35.0); Mean Corpuscular Hemoglobin 33.5 pg (27.0-33.0); Mean Corpuscular Volume 96.9 fL (80.0-98.0); Mean Platelet Volume 10.2 fL (9.4-12.3); Monocytes Absolute Auto 0.6 X10*3/uL (0.1-1.2); Monocytes Percent Auto 7.7 % (2-11); Neutrophils Absolute Auto 4.3 x10*3/uL (2.0-8.3); Neutrophils Percent Auto 51.4 % (45-73); Platelet Count 288 X10*3/uL (160-400); Red Blood Count 4.15 X10*6/uL (4.20-5.50); Red Cell Distribution Width 13.7 % (11.0-16.0); White Blood Count 8.3 X10*3/uL (4.8-10.8)
[2022-08-20 09:33] LABS: Alanine Aminotransferase 34 U/L (0-31); Alkaline Phosphatase 101 U/L (39-117); Anion Gap 15 (12-20); Aspartate Amino Transferase 70 U/L (5-31); Bilirubin Total 0.9 mg/dL (0.0-1.0); Blood Urea Nitrogen 7 mg/dL (9-16); Calcium 9.5 mg/dL (8.4-10.2); Carbon Dioxide 26 mmol/L (22-29); Chloride 98 mmol/L (96-108); Cholesterol 237 mg/dL; Estimated Glomerular Filt Rate > 60; Glucose Fasting 92 mg/dL (60-99); HDL Cholesterol 44 mg/dL; LDL Cholesterol Calculated 151 mg/dl; Potassium 3.3 mmol/L (3.3-5.1); Sodium 136 mmol/L (135-145); Total Protein 7.3 g/dL (6.5-8.0); Triglycerides 212 mg/dL
[2022-08-20 09:43] LABS: Cortisol Random 20.2 ug/dL
[2022-08-20 09:47] LABS: TSH reflex Free T4 3.72 uIU/mL (0.32-4.0)
[2022-08-20 10:06] LABS: Folate 17.2 ng/mL (> or = 4.0); Vitamin B12 > 2000 pg/mL (200-900)
[2022-08-20 12:15] LABS: Appearance Urine Clear; Color Urine Yellow; Glucose Urine UA Negative (Negative); Leukocyte Esterase Urine Moderate (2+) (Negative); Nitrite Urine Negative (Negative); PH 5.5 (5.0-9.0); Specific Gravity - Urine <= 1.005 (1.005-1.025); UMIC TRIGGER UACC YES; Urine Blood Negative (Negative); Urine Ketones Negative (Negative); Urine Protein Negative (Neg-Trace)
[2022-08-20 12:17] LABS: Bacteria Urine 1+ (None Seen); Hyaline Casts Urine 0-2 /LPF (0-2); RBC Urine 0-2 /HPF (0-2); UACC Culture Trigger YES
[2022-08-25 06:38] LABS: Adrenocorticotropic Hormone 36 pg/mL (6-50)
== END 2022-08-20 08:23 | disposition home or self-care (01) ==
LOC: HO.LAB 08:22
PROVIDERS: PCP Nurse Practitioner Family; Visit Provider Surgery
DX: Z00.00 Encounter for general adult medical examination without abnormal findings (principal); E53.8 Deficiency of other specified B group vitamins; E27.8 Other specified disorders of adrenal gland
CPT/HCPCS: 36415; 80053; 80061; 81001; 82024; 82533; 82607; 82746; 84443; 85025; 87086

== ENCOUNTER 2022-11-05 07:20 | Outpatient (AMB) | payer OTHER, SELFPAY ==
--- NOTE | 2022-11-05 07:16 | MHC.PC.OV ---
Intake Visit Reasons: Pain Allergies bee pollen [BEE STINGS] Allergy (Unknown, Verified 08/06/22 14:04) SWELLING Tobacco use date assessed: 08/06/22 HPI Pain HPI Details Dyslipidemia: On atorvastatin 10mg. Will order labs. Hx of low B12, will order labs. Denies chest pain, shortness of breath, and dizziness. Pt is currently working with tribr to find housing. [facility] Medical History (Updated 09/19/22 @ 07:37 by Loraine Ellsworth PA-C) Tubular adenoma of colon Nicotine dependence, cigarettes, uncomplicated History of lobular carcinoma in situ (LCIS) of breast HTN (hypertension) Disc degeneration, lumbar Surgical History (Updated 09/19/22 @ 07:37 by Loraine Ellsworth PA-C) History of colonoscopy History of right breast biopsy History of section Family History Father No problems noted. Mother Asthma COPD (chronic obstructive pulmonary disease) Bronchitis Pleurisy Sister No problems noted. Sister Cervical cancer Son No problems noted. Daughter No problems noted. Social History Housing: Other Housing Other:: hotel Alcohol intake: current Alcohol intake frequency: 3 or more drinks per day Alcohol type: beer Patient Tobacco Use Status: Current everyday Tobacco user Tobacco use type: Cigarette Cigarette Packs Per Day: 0.5 Cigarettes Per Day: 10 Years Smoked: 30 e-Cigarette/Vaping Use: Never Used Second Hand Smoke Exposure: No Current occupational status: disabled Cognitive needs: No Hearing needs: No Vision needs: No Questionnaire Thrive Questionnaire Date Thrive assessed: 10/25/20 DARIANA-7 AMB Questionnaire DARIANA-7 Date DARIANA - 7 assessed: 04/25/21 Source: Developed by Drs. Paulie Avalos, Sheree Hand, Davide Pham and colleagues, with an educational carmen from [employer]. Review of Systems Const Reports as per HPI Physical exam (Primary Care) Tobacco/Smoking Status: Tobacco use Status Tobacco use date assessed 08/06/22 11/05/22 07:18 Patient Tobacco Use Status Current everyday Tobacco 11/05/22 07:18 Tobacco use type Cigarette 11/05/22 07:18 e-Cigarette/Vaping Use Never Used 11/05/22 07:18 Thrive Assessment: Date of Thrive Assessment Date Thrive assessed 10/25/20 11/05/22 07:18 Const General: cooperative Orientation/consciousness: patient oriented x3 Neuro General: patient oriented x3 Psych Mental Status: mental status grossly normal Speech and movement: Clear speech present Affect: normal affect Attitude: cooperative Thought process: Normal thought process present Thought content: Normal thought content present Insight: Good insight present (Psych) Judgement: Good judgement present (Psych) Telehealth Telehealth Location of provider rendering services: practice address Location of patient: address on file Patient Identification confirmed using: Name, : Yes Telehealth method: voice only Patient verbally consented to treatment: Yes Patient verbally consented to billing insurance company: Yes Patient informed of any privacy concerns related to visit: Yes Minutes spent on Phone/Video with Pt.: 10 Assessment and Plan Assessment & Plan (1) Homeless: Code(s): Z59.00 - Homelessness unspecified Plan: Working with Jessica to find housing (2) Alcohol abuse: Code(s): F10.10 - Alcohol abuse, uncomplicated Plan: Continue to monitor (3) Dyslipidemia: Code(s): E78.5 - Hyperlipidemia, unspecified Plan: Labs ordered (4) Low vitamin B12 level: Code(s): E53.8 - Deficiency of other specified B group vitamins Plan: Labs ordered Plan The patient agreed to the use of a medical coding auditor for this encounter. Scribed for WINSOME Berg by Macarena Mccord medical coding auditor, on 11/05/2022 at 07:15 EST. Orders: Orders UA CC w/rflx Micro + Cult Today E53.8 - Deficiency of other specified B group vitamins, E78.5 - Hyperlipidemia, unspecified, F10.10 - Alcohol abuse, uncomplicated, Z59.00 - Homelessness unspecified Vitamin B12 and Folate Today E53.8 - Deficiency of other specified B group vitamins, E78.5 - Hyperlipidemia, unspecified, F10.10 - Alcohol abuse, uncomplicated, Z59.00 - Homelessness unspecified Complete Blood Count Auto Diff Today E53.8 - Deficiency of other specified B group vitamins, E78.5 - Hyperlipidemia, unspecified, F10.10 - Alcohol abuse, uncomplicated, Z59.00 - Homelessness unspecified Comprehensive [place]. Panel Fast Today E53.8 - Deficiency of other specified B group vitamins, E78.5 - Hyperlipidemia, unspecified, F10.10 - Alcohol abuse, uncomplicated, Z59.00 - Homelessness unspecified TSH reflex Free T4 Today E53.8 - Deficiency of other specified B group vitamins, E78.5 - Hyperlipidemia, unspecified, F10.10 - Alcohol abuse, uncomplicated, Z59.00 - Homelessness unspecified MM screening mammo BI Today Z12.31 - Encounter for screening mammogram for malignant neoplasm of breast Medications: Changed From ibuprofen 800 mg PO Q8H To ibuprofen 800 mg PO Q8H 30 days 90 tabs 0RF Refilled losartan-hydrochlorothiazide 50-12.5 mg 1 tab PO DAILY 90 days 90 tabs 1RF Coding Level of Care Code Tele Est Pt Level 3 (42501) Diagnoses Homeless Z59.00 Alcohol abuse F10.10 Dyslipidemia E78.5 Low vitamin B12 level E53.8
== END 2022-11-05 15:05 | disposition home or self-care (01) ==
PROVIDERS: PCP Nurse Practitioner Family; Visit Provider Nurse Practitioner Family
DX: Z59.00 Homelessness unspecified (principal); F10.10 Alcohol abuse, uncomplicated; E78.5 Hyperlipidemia, unspecified; E53.8 Deficiency of other specified B group vitamins
CPT/HCPCS: 99213

== ENCOUNTER 2022-11-05 12:26 | Outpatient (REF) | payer OTHER, SELFPAY ==
[2022-11-05 16:18] LABS: MANUAL DIFF FLAG NO
[2022-11-05 16:48] LABS: Basophils Absolute Auto 0.1 X10*3/uL (0.0-0.2); Basophils Percent Auto 0.5 % (0-2); Eosinophils Absolute Auto 0.1 X10*3/uL (0.0-0.4); Eosinophils Percent Auto 0.7 % (0-4); Hematocrit 40.6 % (37.0-47.0); Hemoglobin 13.3 g/dl (12.0-16.0); Imm Gran Abs Auto 0.05 X10*3/uL (0.00-0.03); Imm Gran Pct Auto 0.4 % (0.0-0.4); Lymphocytes Absolute Auto 2.1 X10*3/uL (1.2-4.9); Lymphocytes Percent Auto 17.5 % (20-40); Mean Corpuscular HGB Conc 32.8 g/dl (31.0-35.0); Mean Corpuscular Hemoglobin 33.1 pg (27.0-33.0); Mean Platelet Volume 12.7 fL (9.4-12.3); Monocytes Absolute Auto 0.9 X10*3/uL (0.1-1.2); Monocytes Percent Auto 7.1 % (2-11); Neutrophils Percent Auto 73.8 % (45-73); Platelet Count 333 X10*3/uL (160-400); Red Blood Count 4.02 X10*6/uL (4.20-5.50); Red Cell Distribution Width 13.4 % (11.0-16.0); White Blood Count 12.1 X10*3/uL (4.8-10.8)
[2022-11-05 16:58] LABS: Appearance Urine Cloudy; Color Urine Dark Yellow; Glucose Urine UA Negative (Negative); Leukocyte Esterase Urine Moderate (2+) (Negative); Nitrite Urine Negative (Negative); PH 6.5 (5.0-9.0); UMIC TRIGGER UACC YES; Urine Blood Negative (Negative); Urine Ketones 15 mg/dL (Negative); Urine Protein 30 (1+) mg/dL (Neg-Trace)
[2022-11-05 17:03] LABS: Alanine Aminotransferase 23 U/L (0-31); Albumin Level 4.2 g/dL (3.5-5.0); Alkaline Phosphatase 93 U/L (39-117); Anion Gap 17 (12-20); Aspartate Amino Transferase 44 U/L (5-31); Bilirubin Total 0.8 mg/dL (0.0-1.0); Blood Urea Nitrogen 10 mg/dL (9-16); Calcium 10.2 mg/dL (8.4-10.2); Carbon Dioxide 23 mmol/L (22-29); Chloride 101 mmol/L (96-108); Cholesterol 218 mg/dL (<200); Estimated Glomerular Filt Rate > 60; Glucose Fasting 97 mg/dL (60-99); Glucose Random 96 mg/dL (60-115); HDL Cholesterol 51 mg/dL (>40); LDL Cholesterol Calculated 128 mg/dL (<100); Potassium 3.5 mmol/L (3.3-5.1); Sodium 137 mmol/L (135-145); Total Protein 7.4 g/dL (6.5-8.0); Triglycerides 196 mg/dL (<150)
[2022-11-05 17:18] LABS: TSH reflex Free T4 3.73 uIU/mL (0.32-4.0)
[2022-11-05 17:27] LABS: Bacteria Urine 4+ (None Seen); Squamous Epithelial Cell Urine >20 /HPF (0-2); UACC Culture Trigger YES
[2022-11-05 17:29] LABS: Folate 15.5 ng/mL (> or = 4.0); Vitamin B12 1311 pg/mL (200-900)
== END 2022-11-05 12:27 | disposition home or self-care (01) ==
LOC: HO.HMGCLDS 12:26
PROVIDERS: PCP Nurse Practitioner Family; Visit Provider Nurse Practitioner Family
DX: E78.5 Hyperlipidemia, unspecified (principal); F10.10 Alcohol abuse, uncomplicated; E53.8 Deficiency of other specified B group vitamins; Z59.00 Homelessness unspecified
CPT/HCPCS: 36415; 80053; 80061; 81001; 81003; 82607; 82746; 84443; 85025; 87086

== ENCOUNTER 2022-11-14 09:12 | Outpatient (REF) | payer OTHER, SELFPAY ==
--- NOTE | ~2022-11-14 | CT_ITS ---
EXAMINATION: CT HEAD WITHOUT CONTRAST CLINICAL INFORMATION: Fall. COMPARISON: Head CT dated 01/26/2017. TECHNIQUE: Contiguous axial imaging was performed from the skullbase to vertex without intravenous administration of contrast. This CT examination was performed using dose optimization techniques as appropriate, variously including the following: *Automated exposure control *Adjustment of mA and/or kV according to patient size (this includes techniques or standardized protocols for targeted exams where dose is matched to indication/reason for exam; i.e. extremities or head) *Use of iterative reconstruction technique DLP: 692 mGy-cm. FINDINGS: There is no evidence of acute intracranial hemorrhage or territorial infarction. No abnormal mass effect or midline shift is seen. Campos to white matter differentiation is well preserved. No extra-axial fluid collections are identified. The ventricles are normal in size. There is no abnormal attenuation within the brain parenchyma. The osseous structures and soft tissues are normal. The mastoid air cells are well aerated. There is [id number] ethmoid sinus mucosal thickening bilaterally. The remaining imaged paranasal sinuses are well aerated. CT/CT head/brain wo IV con IMPRESSION: No acute intracranial pathology. [id number]-[id number] ethmoid sinus mucosal thickening bilaterally.
--- NOTE | ~2022-11-14 | CT_ITS ---
EXAMINATION: CT CHEST LOW-DOSE SCREENING WITHOUT CONTRAST HISTORY: Asymptomatic patient meeting criteria for lung screening. PATIENT PACK-YEAR HISTORY: 41 Current Smoker: Yes If former smoker, years since quitting: COMPARISON: MRI abdomen 06/26/2022 TECHNIQUE: Multidetector volumetric non-contrast CT imaging of the chest was performed using low dose screening CT technique. Axial thin section 0.625 mm reformations in soft tissue and lung windows were obtained. Sagittal and coronal reformations were obtained. Axial MIP images were also created and reviewed. RECONSTRUCTED WIDTH: 1.25 mm x 1.25 mm TOTAL EXAM DLP: 36 mGy-cm CTDIvol: 0.82 L mGy FINDINGS: LUNGS: Moderate centrilobular emphysema. No suspicious pulmonary nodule. No focal consolidation. Central airways are patent. PLEURA: No pleural effusion. LYMPH NODES: No mediastinal, hilar or axillary adenopathy or free fluid collection. MEDIASTINUM: Great vessels are of normal caliber. Heart size is normal. No pericardial effusion. CORONARY ARTERY CALCIFICATIONS: Mild. CHEST WALL/BREASTS: No acute abnormality. UPPER ABDOMEN: This study was performed without contrast and with lower than standard dose, reducing the sensitivity for detection of small lesions in the upper abdomen. Partially imaged left upper quadrant mass. OSSEOUS STRUCTURES: No destructive bone lesions. CT/CT lung screening IMPRESSION: No suspicious pulmonary nodule. LUNG-RADS CATEGORY ASSESSMENT: 1. Negative. No nodules or definitely benign nodules. Continue annual screening with low-dose CT in 12 months. Probability of malignancy less than 1%. INCIDENTAL FINDINGS (S CATEGORY): Finding: No incidental findings. Significance category: Normal or normal variant. RECOMMENDATION: Low dose lung CT. overall in 1 year. Visual estimate of coronary calcified plaque burden: Mild. However, this exam cannot replace a dedicated cardiac CT calcium score for accurate assessment. LUNG-RADS CATEGORY: 1 -- NEGATIVE
== END 2022-11-14 09:13 | disposition home or self-care (01) ==
LOC: HO.CT 09:12
PROVIDERS: PCP Nurse Practitioner Family; Visit Provider Nurse Practitioner Family
DX: S00.93XA Contusion of unspecified part of head, initial encounter (principal); W19.XXXA Unspecified fall, initial encounter; F17.210 Nicotine dependence, cigarettes, uncomplicated
CPT/HCPCS: 70450; 71271

== ENCOUNTER 2022-12-12 19:35 | Emergency (ER) | payer OTHER, SELFPAY ==
[2022-12-12 20:09] VITALS: BP 121/66; PULSE 94; RESP 16; TEMP 36; O2SAT 96; BMI 21.1
--- NOTE | 2022-12-12 20:09 | ED.GENADULT ---
HPI - General Adult General Chief complaint: Back Pain/Injury Stated complaint: Back pain Time Seen by Provider: 12/12/22 22:14 Source: patient Mode of arrival: EMS Limitations: no limitations History of Present Illness HPI narrative: 57-year-old female who presents emergency department for evaluation flare-up of her chronic back pain patient states that she has for fracture discs in compression fractures, she also has degenerative joint disease. She states she has chronic pain in her back and her pain got worse over the past 2 days she denies any weakness of her lower extremities were loss or bowel movements. She denied fever or chills. He denied nausea, vomiting or diarrhea. Patient states she did take some ibuprofen earlier in the morning with some relief for pain. Pain got worse so she came to emergency department by ambulance. Patient states she had a surgery on 12/02/2022 at [facility]-she states she had a mass in her stomach which was removed. States that the surgical wounds have not been read checked by her surgeon, she denied abdominal pain. Related Data Home Medications Medication Instructions Recorded Confirmed acetaminophen 500 mg tablet 1,000 mg PO Q6H PRN 05/22/22 05/22/22 (Tylenol Extra Strength) Previous Rx's Medication Instructions Recorded cyclobenzaprine 5 mg tablet 5 mg PO BID PRN pain 20 days #40 07/10/22 tabs ibuprofen 800 mg tablet 800 mg PO Q8H 30 days #90 tabs 11/05/22 losartan 50 mg-hydrochlorothiazide 1 tab PO DAILY 90 days #90 tabs 11/05/22 12.5 mg tablet Ventolin HFA 90 mcg/actuation 2 puff inhalation Q6H PRN 11/13/22 aerosol inhaler (albuterol sulfate) shortness of breath or wheezing #8 grams atorvastatin 10 mg tablet 10 mg PO BEDTIME #90 tabs 11/13/22 folic acid 1 mg tablet 1 mg PO DAILY #90 tabs 11/13/22 mecobalamin (vitamin B12) 1,000 1,000 mcg PO DAILY #90 tabs 11/13/22 mcg chewable tablet mecobalamin (vitamin B12) 1,000 1,000 mcg sublingual DAILY #90 tabs 11/19/22 mcg disintegrating tablet,sublingual ciprofloxacin HCl 250 mg tablet 250 mg PO BID 3 days #6 tabs 11/20/22 (Cipro) acetaminophen 500 mg tablet 1,000 mg (2 x 500 mg) PO Q6H PRN 12/12/22 (Tylenol Extra Strength) fever or pain #20 tabs ibuprofen 400 mg tablet 400 mg PO TID PRN fever or pain 12/12/22 #30 tabs Allergies Allergy/AdvReac Type Severity Reaction Status Date / Time bee pollen [BEE STINGS] Allergy Unknown SWELLING Verified 12/12/22 20:12 Review of Systems Review of Systems: Yes all other systems are reviewed and are negative [facility] Past Medical History [facility] Narrative: Social history: Patient is homeless, she states she is living in a tent in [place]. She is here with her who was also here for back pain but he is also intoxicated and admitted to drinking alcohol. Medical History Tubular adenoma of colon Nicotine dependence, cigarettes, uncomplicated History of lobular carcinoma in situ (LCIS) of breast HTN (hypertension) Disc degeneration, lumbar Surgical History History of surgery History of colonoscopy History of right breast biopsy History of section Family History Family History Father No problems noted. Mother Asthma COPD (chronic obstructive pulmonary disease) Bronchitis Pleurisy Sister No problems noted. Sister Cervical cancer Son No problems noted. Daughter No problems noted. Social History Social History Housing: Other Housing Other:: hotel Alcohol intake: current Alcohol intake frequency: 3 or more drinks per day Alcohol type: hard liquor Patient Tobacco Use Status: Current everyday Tobacco user Tobacco use type: Cigarette Cigarette Packs Per Day: 0.5 Cigarettes Per Day: 10 Years Smoked: 30 Smoked in Last 30 Days: Yes e-Cigarette/Vaping Use: Never Used Second Hand Smoke Exposure: No Use of substances other than those prescribed or required for medical reasons: No Advance Directives: No Patient : No Current occupational status: disabled Cognitive needs: No Hearing needs: No Vision needs: No Physical Exam ED Vital Signs: Vital Signs - 24 hr 12/12/22 20:09 Temperature 96.8 F Pulse Rate 94 Respiratory Rate 16 Blood Pressure 121/66 Pulse Oximetry 96 Oxygen Delivery Method Room Air BMI result Body Mass Index 21.1 Vital signs were normal exam: General: Awake, alert in no distress Head: Normocephalic, atraumatic EENT: PERRL, Lids normal, sclera normal, conjunctiva normal, nose normal , ears normal, throat without erythema or exudates Neck: Supple, no adenopathy, trachea midline and nontender Lung: breath sounds symmetric, no wheezing, rales or rhonchi Chest: symmetric movement, nontender Heart: regular rate and rhythm, normal S1, S2 no murmurs or rubs Abdomen: soft, non-tender, nondistended, normal bowel sounds. Patient has multiple laparoscopic surgical sites covered with Steri-Strips, these removed in the wounds appear to be intact with no purulent drainage and no dehiscence. Back: Patient has tenderness palpation over her paraspinal muscles in the lumbar sacral area bilaterally, no spasm, negative straight leg raises, no point vertebral tenderness Extremities: no deformities, moves all extremities symmetrically Neuro: Awake, alert, oriented, normal speech, cranial nerves intact, moves all extremities symmetrically Psych: Pleasant, cooperative Course Course Course Narrative: RME performed by Chelsea Torres PA-C. Patient is a 57 year old assigned female at presenting to the emergency department with back pain. Patient states that this pain is chronic for her. Patient is homeless and does currently use alcohol daily. Patient here with her and service dog. Patient placed back in the waiting room pending room availability. Medications Administered Discontinued Medications Generic Name Dose Route Start Last Admin Trade Name Freq PRN Reason Stop Dose Admin Acetaminophen 650 mg 12/12/22 23:13 12/12/22 23:22 Acetaminophen 325 Mg Tablet PO 12/12/22 23:14 650 mg ONCE STA Administration Ibuprofen 400 mg 12/12/22 23:13 12/12/22 23:22 Ibuprofen 400 Mg Tablet PO 12/12/22 23:14 400 mg ONCE ONE Administration Discharge Plan Discharge Clinical Impression: Acute exacerbation of chronic low back pain, Status post gastric surgery Patient Disposition: Home, Self-Care Additional Instructions: your pain is consistent with a flare-up of your chronic lower back pain. Take ibuprofen 400 mg pills, 1pills every 6 hours as needed for pain or fever. Take Tylenol (acetaminophen) 500 mg pills, 2 pills every 6 hours as needed for pain or fever. Continue taking your medications as prescribed by your providers Follow-up with your doctor in 2 days. Please return to the emergency department if your symptoms get worse or if you develop any symptoms that are concerning to you. Prescriptions: New acetaminophen [Tylenol Extra Strength] 500 mg tablet 1,000 mg PO Q6H PRN (Reason: fever or pain) Qty: 20 0RF ibuprofen 400 mg tablet 400 mg PO TID PRN (Reason: fever or pain) Qty: 30 0RF No Action cyclobenzaprine 5 mg tablet 5 mg PO BID PRN (Reason: pain) 20 Days Qty: 40 0RF atorvastatin 10 mg tablet 10 mg PO BEDTIME Qty: 90 1RF folic acid 1 mg tablet 1 mg PO DAILY Qty: 90 1RF mecobalamin (vitamin B12) 1,000 mcg tablet,chewable 1,000 mcg PO DAILY Qty: 90 1RF albuterol sulfate [Ventolin HFA] 90 mcg/actuation HFA aerosol inhaler 2 puff inhalation Q6H PRN (Reason: shortness of breath or wheezing) Qty: 8 3RF mecobalamin (vitamin B12) 1,000 mcg tablet,disintegrating 1,000 mcg sublingual DAILY Qty: 90 1RF Rx Instructions: place tablet under tongue and allow to dissolve for at least30 secs before swallowing ciprofloxacin HCl [Cipro] 250 mg tablet 250 mg PO BID 3 Days Qty: 6 0RF losartan-hydrochlorothiazide 50-12.5 mg tablet 1 tab PO DAILY 90 Days Qty: 90 1RF ibuprofen 800 mg tablet 800 mg PO Q8H 30 Days Qty: 90 0RF acetaminophen [Tylenol Extra Strength] 500 mg tablet 1,000 mg PO Q6H PRN
[2022-12-12] MEDS: Acetaminophen 325 MG TABLET 650 MG PO (23:22)
[2022-12-12] MEDS: Ibuprofen 400 MG TABLET PO (23:22)
== END 2022-12-13 06:26 | disposition home or self-care (01) ==
PROVIDERS: Emergency Provider Emergency Medicine Emergency Medical Services; PCP Nurse Practitioner Family
DX: M54.50 Low back pain, unspecified (principal); F17.210 Nicotine dependence, cigarettes, uncomplicated; Z71.6 Tobacco abuse counseling; Z98.84 Bariatric surgery status
CPT/HCPCS: 99283; 99284

== ENCOUNTER 2024-04-21 12:26 | Outpatient (AMB) | payer OTHER, SELFPAY ==
[2024-04-21 12:31] VITALS: BP 138/78; PULSE 102; RESP 20; TEMP 37.3; O2SAT 96; BMI 24.9
--- NOTE | 2024-04-21 12:31 | MHC.PC.OV ---
Vital Signs 04/21/24 12:31 Height 5 ft 4 in Weight 145 lb BMI 24.9 BP 138/78 Blood Pressure Location Lt brachial Position Sitting Respiration 20 Pulse 102 H Pulse Source Pulse Oximeter Temp 99.2 F Temp Source Oral Pulse Oximetry (%) 96 Oxygen Delivery Method Room Air Intake Visit Reasons: Annual PE Intake Note: Pt is here today for PE. Allergies bee pollen [BEE STINGS] Allergy (Unknown, Verified 04/21/24 12:33) SWELLING Medication List - Last Reconciled 04/21/24 by ZEFERINO Willis-BC acetaminophen (Tylenol Extra Strength) 1,000 mg (2 x 500 mg) PO Q6H PRN acetaminophen (Tylenol Extra Strength) 1,000 mg PO Q6H PRN atorvastatin 10 mg PO BEDTIME cyclobenzaprine 5 mg PO BID PRN 20 days folic acid 1 mg PO DAILY losartan-hydrochlorothiazide 50-12.5 mg 1 tab PO DAILY 90 days mecobalamin (vitamin B12) 1,000 mcg sublingual DAILY mecobalamin (vitamin B12) 1,000 mcg PO DAILY meloxicam 15 mg PO DAILY PRN Ventolin HFA 90 mcg/actuation (albuterol sulfate) 2 puffs inhalation Q6H PRN NS Tobacco use date assessed: 04/21/24 Dental Screening Dental Screen Date: 04/21/24 Did you have a dental visit in the last 12 months?: Yes Did you have a dental problem in the last 6 months where you did not have access to dental care?: No Was dental information given to patient?: Patient has dentist HPI Annual PE HPI Details History of Present Illness The patient is a 59-year-old female presenting for an annual physical examination and health maintenance. Notable in her history is her heavy smoking habit, contributing to shortness of breath episodes and involvement in a lung cancer screening program, although she has not attended these recently. She has a chronic history of lower back pain and is currently experiencing joint pain in her fingers, likely due to arthritis, although without significant visible swelling. The patient's mental health history includes anxiety and depression. She denies suicidal or homicidal ideation. In recent years, she experienced insomnia and vitamin B12 deficiency. The patient reports no recent constipation, diarrhea, chest pain, or signs of gastrointestinal bleeding. ([facility] [place] [facility], been off all her meds for quite sometime) Health Maintenance - Due for mammography screening - Due for pap smear - Previously enrolled in a low-dose CT scan program for lung cancer screening - Previously identified vitamin B12 deficiency; needs re-evaluation -colon screen is up to date Social History - The patient is a heavy smoker. - Recently relocated from [place] to [place]. Review of Systems - Respiratory: Reports increased shortness of breath periodically; Denies chest pain. - Gastrointestinal: Denies blood in stool, constipation, diarrhea, or abdominal discomfort. - Neuromuscular: Reports joint pain; Denies significant joint swelling. - Psychological: Reports anxiety and depression; Denies suicidal or homicidal ideation. Physical Exam General: Cooperative, healthy appearing, comfortable, no acute distress and well developed Orientation: Patient oriented x3 Limitations: No limitations Head: Normal to inspection Ears: Hearing grossly normal bilaterally Nose: Normal external nose present Face and sinus: Normal facial exam Eyes: Appearance normal, both eyes and all related structures Neck: Normal visual inspection and Yes full ROM Respiratory: Coarse breath sounds bilaterally, able to speak in complete sentences Cardiovascular: Regular rate and rhythm. Normal S1 and S2 GI: Normal to inspection. Soft to palpation and nontender Skin: No rashes or lesions noted Neuro: Patient oriented x3 Extremities: Minimal swelling to PIP and DIP joints, good hand grasp, normal to inspection Results Plan The patient's comprehensive plan includes the management of her smoking-related concerns with a chest X-ray and the resumption of the low-dose CT scan program. Joint pain suggestive of arthritis will be addressed with meloxicam, while trazodone is prescribed for insomnia. Immediate collaboration with behavioral health is arranged for her anxiety and depression. The patient will receive referrals for a mammogram and a pap smear as part of routine health maintenance. Additionally, her vitamin levels will be reassessed due to a history of deficiency. Discussion Notes I discussed with the patient the necessity of restarting her low-dose CT scan program to monitor for smoking-related lung pathology and ordered a chest X-ray to evaluate her respiratory condition. We reviewed the need for her overdue mammogram and pap smear screenings, organizing referrals accordingly. I explained the decision to initiate meloxicam for her joint discomfort and trazodone for sleep disturbance. For her mental health concerns, immediate intervention with behavioral health therapy was coordinated. Vitamin B12 reassessment was advised given her history of deficiency. Patient Instructions - Undergo the scheduled mammogram and pap smear screenings. - Continue with the low-dose CT scan program as directed. - Take meloxicam for joint pain relief. - Use trazodone as prescribed to aid sleep. - Follow up with behavioral health specialists for therapy. - Ensure vitamin B12 levels are rechecked as scheduled. [facility] Medical History Tubular adenoma of colon Nicotine dependence, cigarettes, uncomplicated History of lobular carcinoma in situ (LCIS) of breast HTN (hypertension) Disc degeneration, lumbar Surgical History History of surgery History of colonoscopy History of right breast biopsy History of section Family History Father No problems noted. Mother Asthma COPD (chronic obstructive pulmonary disease) Bronchitis Pleurisy Sister No problems noted. Sister Cervical cancer Son No problems noted. Daughter No problems noted. Social History Housing: Other Housing Other:: hotel Alcohol intake: current Alcohol intake frequency: 3 or more drinks per day Alcohol type: hard liquor Patient Tobacco Use Status: Current everyday Tobacco user Tobacco use type: Cigarette Cigarette Packs Per Day: 0.5 Cigarettes Per Day: 20 Years Smoked: 30 e-Cigarette/Vaping Use: Never Used Second Hand Smoke Exposure: No service: No Current occupational status: disabled Cognitive needs: No Hearing needs: No Vision needs: No Questionnaire PHQ-9 Over the last 2 weeks, how often have you been bothered by any of the following problems? 1. Little interest or pleasure in doing things: several days 2. Feeling down, depressed, or hopeless: nearly every day 3. Trouble falling or staying asleep, or sleeping too much: several days 4. Feeling tired or having little energy: several days 5. Poor appetite or overeating: several days 6. Feeling bad about yourself - or that you are a failure or have let yourself or your family down: several days 7. Trouble concentrating on things, such as reading the newspaper or watching television: several days 8. Moving or speaking so slowly that other people could have noticed. Or the opposite - being so fidgety or restless that you have been moving around a lot more than usual: several days 9. Thoughts that you would be better off or of hurting yourself in some way: not at all Total score: 10 Depression Screening Interpretation: Positive (denies any si or HI, will have BH (cecilia) speak with pt) Depression Screening Follow-up: Existing condition Depression Screening Done: Yes 11718 - PHQ-9 Billing: Yes Source: Developed by Drs. Paulie Avalos, Sheree Hand, Davide Pham and colleagues, with an educational carmen from [employer]. Thrive Questionnaire Date Thrive assessed: 04/21/24 I am a: Patient What is your living situation today?: I do not have a steady places to live I am staying at a hotel Within the past 12 months, did the food you bought not last and you didn't have the money to get more?: Never true Within the past 12 months, did you worry whether your food would run out before you got money to buy more?: Never true Do you have trouble paying for medicines?: No Do you have trouble getting transportation to medical appointments?: No Do you have trouble paying your heating and electricity bill?: No Do you have trouble taking care of your child, family member or friend?: No Do you have trouble with day-to-day activities such as bathing, preparing meals, shopping, managing finances, etc.?: No Are you currently unemployed and looking for a job?: No Are you interested in more education?: No Please select the resources that you would like help with: Housing/Prison Currently or been in a relationship where the following occur: No concerns reported THRIVE Score: 1 AUDIT C Alcohol Use Questionnaire (AUDIT-C) 1. How often do you have a drink containing alcohol?: 2-4 times a month 2. How many drinks containing alcohol do you have on a typical day when you are drinking?: 1 or 2 3. How often do you have six or more drinks on one occasion?: Never Total Score: 2 DARIANA-7 AMB Questionnaire DARIANA-7 Date DARIANA - 7 assessed: 04/21/24 Feeling nervous, anxious, or on edge: 0 = Not at all Not being able to stop or control worryin = Not at all Worrying too much about different things: 0 = Not at all Trouble relaxin = Several days Being so restless that it is hard to sit still: 1 = Several days Becoming easily annoyed or irritable: 1 = Several days Feeling afraid as if something awful might happen: 0 = Not at all Total DARIANA-7 score (0-4 normal; 5-9 mild; 10-14 moderate; 15-21 severe): 3 Source: Developed by Drs. Paulie Avalos, Sheree Hand, Davide Pham and colleagues, with an educational carmen from [employer]. DARIANA-7 Assessment Billing DARIANA-7 Assessment Tool: DARIANA-7 Assessment 07316 (having speak with pt in today, denies any si or hi) Physical exam (Primary Care) Vital Signs: Last Vital Signs Temp 99.2 F 04/21/24 12:31 Pulse 102 H 04/21/24 12:31 Resp 20 04/21/24 12:31 BP 138/78 04/21/24 12:31 Pulse Ox 96 04/21/24 12:31 Oxygen Delivery Method Room Air 04/21/24 12:31 BMI result Body Mass Index 24.9 Tobacco/Smoking Status: Tobacco use Status Tobacco use date assessed 04/21/24 04/21/24 12:38 Patient Tobacco Use Status Current everyday Tobacco 04/21/24 12:38 Tobacco use type Cigarette 04/21/24 12:38 e-Cigarette/Vaping Use Never Used 04/21/24 12:38 PHQ-9: PHQ-9 Score PHQ-9: Total score 10 04/21/24 13:01 Depression Screening Interpretation: Positive (denies any si or HI, will have (cecilia) speak with pt) Depression Screening Follow-up: Existing condition Thrive Assessment: Date of Thrive Assessment Date Thrive assessed 04/21/24 04/21/24 12:38 Currently or been in a relationship where the following occur: No concerns reported Office Procedures Flu Questionnaire Does the patient have a severe egg allergy?: No Does the patient have severe life threatening allergies?: No Does the patient have a fever or illness today?: No Has the patient ever had Guillain-Calliham Syndrome?: No Has the patient ever had any past reaction to a flu shot?: No Immunizations Fluarix Triv (PF) 45 mcg (15 mcg x 3)/0.5 mL IM syringe Performing Provider: WINSOME Willis Performing Location[place] [facility] Administered by: Yobany Brown CMA on 04/21/24 13:29 Dose Route Admin Location Dispensed Lot Number Expiration Date [place]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 0.5 mL IM Left Deltoid 0.5 mL [id number] 08/22/24 [id number] [email or web address] VIS Given Date VIS Provided VIS Publication Date 04/21/24 Single Vaccine 20 Eligibility Eligibility Date Funding Source Not VFC Eligible 04/21/24 Private pneumoc 20-alirio conj-dip cr(PF) 0.5 mL IM syringe Performing Provider: WINSOME Willis Performing Location[place] [facility] Administered by: Yobany Brown CMA on 04/21/24 13:29 Dose Route Admin Location Dispensed Lot Number Expiration Date [facility]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 0.5 mL IM Right Deltoid 0.5 mL [id number] 06/12/25 [employer] VIS Given Date VIS Provided VIS Publication Date 04/21/24 Single Vaccine 21 Eligibility Eligibility Date Funding Source Not VFC Eligible 04/21/24 Private Coding Level of Care Code Est Pt Prev Care 40-64y(46045) Diagnoses Physical exam Z00.00 SOB (shortness of breath) R06.02 Febrile R50.9 Arthritis M19.90 Vitamin D deficiency E55.9 Postmenopausal Z78.0 Screening for cervical cancer Z12.4 Additional Codes PHQ-9 - 52479 - PHQ-9 Billing: Yes ([id number]) DARIANA-7 Assessment Billing - DARIANA-7 Assessment Tool: DARIANA-7 Assessment 65183 ([id number]) Assessment & Plan Assessment & Plan (1) Physical exam: Code(s): Z00.00 - Encounter for general adult medical examination without abnormal findings Category: Medical (2) SOB (shortness of breath): Code(s): R06.02 - Shortness of breath Category: Medical (3) Febrile: Code(s): R50.9 - Fever, unspecified Category: Medical (4) Arthritis: Code(s): M19.90 - Unspecified osteoarthritis, unspecified site Category: Medical (5) Vitamin D deficiency: Code(s): E55.9 - Vitamin D deficiency, unspecified Category: Medical (6) Postmenopausal: Code(s): Z78.0 - Asymptomatic menopausal state Category: Medical (7) Screening for cervical cancer: Code(s): Z12.4 - Encounter for screening for malignant neoplasm of cervix Category: Medical Plan . Orders: Orders Complete Blood Count Auto Diff Today Z00.00 - Encounter for general adult medical examination without abnormal findings TSH reflex Free T4 Today Z00.00 - Encounter for general adult medical examination without abnormal findings UA CC w/rflx Micro + Cult Today Z00.00 - Encounter for general adult medical examination without abnormal findings Lipid Panel Today Z00.00 - Encounter for general adult medical examination without abnormal findings MM screening mammo BI Today Z12.31 - Encounter for screening mammogram for malignant neoplasm of breast Pneumococcal 20 Immunization Today Z23 - Encounter for immunization Comprehensive [place]. Panel Fast Today Z00.00 - Encounter for general adult medical examination without abnormal findings CT lung screening 11/17/23 F17.210 - Nicotine dependence, cigarettes, uncomplicated XR chest 2V Today R06.02 - Shortness of breath, R50.9 - Fever, unspecified XR Hand Bilat min 3v Today M19.90 - Unspecified osteoarthritis, unspecified site Vitamin D 25-OH Total Today E55.9 - Vitamin D deficiency, unspecified XR DEXA axial skeleton Today E55.9 - Vitamin D deficiency, unspecified, Z78.0 - Asymptomatic menopausal state Influenza [id number] Immunization Today Z23 - Encounter for immunization Referrals [employer] Referral Z12.4 - Encounter for screening for malignant neoplasm of cervix Medications: New trazodone 50 mg PO BEDTIME PRN 30 tabs 2RF sleep pneumoc 20-alirio conj-dip cr(PF) 0.5 mL IM ONCE 0.5 mL 0RF Z23 - Encounter for immunization meloxicam 15 mg PO DAILY PRN 30 tabs 0RF back pain Fluarix Triv [id number] (PF) (flu vacc [id number] 6mos up(PF)) 0.5 mL IM ONCE 0.5 mL 0RF NS Z23 - Encounter for immunization Refilled cyclobenzaprine 5 mg PO BID 20 days PRN 40 tabs 0RF pain losartan-hydrochlorothiazide 50-12.5 mg 1 tab PO DAILY 90 days 90 tabs 0RF atorvastatin 10 mg PO BEDTIME 90 tabs 0RF E78.5 - Hyperlipidemia, unspecified folic acid 1 mg PO DAILY 90 tabs 0RF mecobalamin (vitamin B12) 1,000 mcg PO DAILY 90 tabs 0RF
--- OUTSIDE RECORDS SUMMARY | 2024-04-21 14:51 | XMS_ITS ---
Author Name [facility] Organization Unknown History of Medication Use Medication Directions Dispensed Refills Start Date End Date Stat Hydrocodone/Acetamin ophen (Hydrocodone-Acetami nophen 5-325) 1 TAB Tablet 09/02/2023 active Vitamin B12 1000 MCG Vitamin B12 1000 MCG active HYDROcodone-Acetamin ophen 5-325 MG HYDROcodone-Acetamin ophen 5-325 MG active Folic Acid 1 MG Folic Acid 1 MG active Problems Problem Status Onset Date Problem Type Date of Resoluti on Source Compression fracture of L5 vertebra active ProblemAct CTBRISTOL Accidental fall active ProblemAct CTB RISTOL
== END 2024-04-21 13:41 | disposition home or self-care (01) ==
PROVIDERS: PCP Nurse Practitioner Family; Visit Provider Nurse Practitioner Family
DX: Z00.00 Encounter for general adult medical examination without abnormal findings (principal); R06.02 Shortness of breath; R50.9 Fever, unspecified; M19.90 Unspecified osteoarthritis, unspecified site; E55.9 Vitamin D deficiency, unspecified; Z78.0 Asymptomatic menopausal state; Z12.4 Encounter for screening for malignant neoplasm of cervix; Z23 Encounter for immunization

== ENCOUNTER 2024-04-21 12:26 | Outpatient (REF) | payer OTHER, SELFPAY ==
--- NOTE | ~2024-04-21 | XR_ITS ---
EXAMINATION: XR CHEST 2 VIEWS HISTORY: R06.02 - Shortness of breath COMPARISON: Comparison is made with the prior examination dated 11/18/2015. FINDINGS: PA and lateral views of the chest are submitted. The lungs are expanded and clear. There is no pleural effusion, pneumothorax, or pulmonary vascular congestion. The heart is normal in size. The bones are intact. XR/XR chest 2V IMPRESSION: No acute cardiopulmonary abnormality. Electronically signed by: Paulie Martins MD 04/21/2024 03:32 PM BIRAN
--- NOTE | ~2024-04-21 | XR_ITS ---
EXAMINATION: XR HAND 3 OR MORE VIEWS LEFT, XR HAND 3 OR MORE VIEWS RIGHT HISTORY: M19.90 - Unspecified osteoarthritis, unspecified site COMPARISON: There are no prior studies available for comparison. FINDINGS: Six views of the bilateral hands are submitted. The bones are osteopenic. There is an old healed fracture of the left 5th metacarpal neck. No acute fracture or dislocation is seen. There is moderate osteoarthritis of the PIP joint of the right 4th finger and the PIP joints of the left 3rd and 4th fingers. The soft tissues are unremarkable. 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 Electronically signed by: Paulie Martins MD 04/22/2024 07:47 AM BRIAN
--- NOTE | ~2024-04-21 | XR_ITS ---
EXAMINATION: XR HAND 3 OR MORE VIEWS LEFT, XR HAND 3 OR MORE VIEWS RIGHT HISTORY: M19.90 - Unspecified osteoarthritis, unspecified site COMPARISON: There are no prior studies available for comparison. FINDINGS: Six views of the bilateral hands are submitted. The bones are osteopenic. There is an old healed fracture of the left 5th metacarpal neck. No acute fracture or dislocation is seen. There is moderate osteoarthritis of the PIP joint of the right 4th finger and the PIP joints of the left 3rd and 4th fingers. The soft tissues are unremarkable. 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 Electronically signed by: Paulie Martins MD 04/22/2024 07:47 AM BRIAN
== END 2024-04-21 12:27 | disposition home or self-care (01) ==
LOC: HO.HMGCX 12:26
PROVIDERS: PCP Nurse Practitioner Family; Visit Provider Nurse Practitioner Family
DX: Z00.00 Encounter for general adult medical examination without abnormal findings (principal); Z23 Encounter for immunization; R06.02 Shortness of breath; R50.9 Fever, unspecified; M19.90 Unspecified osteoarthritis, unspecified site; E55.9 Vitamin D deficiency, unspecified; F17.210 Nicotine dependence, cigarettes, uncomplicated; Z78.0 Asymptomatic menopausal state
CPT/HCPCS: 71046; 73130; 90471; 90472; 90656; 90677; 96127; 99396

== ENCOUNTER → 2024-04-21 13:56 | Outpatient (BNV) | payer OTHER, SELFPAY | PROVIDERS: PCP Nurse Practitioner Family; Visit Provider Radiology Diagnostic Radiology | DX: M19.042 Primary osteoarthritis, left hand (principal); M19.041 Primary osteoarthritis, right hand | CPT/HCPCS: 71046; 73130 ==

== ENCOUNTER 2024-04-26 13:03 | Outpatient (REF) | payer OTHER, SELFPAY ==
[2024-04-26 16:17] LABS: MANUAL DIFF FLAG NO
[2024-04-26 16:43] LABS: Basophils Absolute Auto 0.1 X10*3/uL (0.0-0.2); Basophils Percent Auto 0.8 % (0-2); Eosinophils Absolute Auto 0.2 X10*3/uL (0.0-0.4); Eosinophils Percent Auto 2.8 % (0-4); Hematocrit 43.3 % (37.0-47.0); Hemoglobin 14.7 g/dl (12.0-16.0); Imm Gran Abs Auto 0.03 X10*3/uL (0.00-0.03); Imm Gran Pct Auto 0.4 % (0.0-0.4); Lymphocytes Absolute Auto 3.1 X10*3/uL (1.2-4.9); Lymphocytes Percent Auto 43.3 % (20-40); Mean Corpuscular HGB Conc 33.9 g/dl (31.0-35.0); Mean Corpuscular Hemoglobin 31.7 pg (27.0-33.0); Mean Corpuscular Volume 93.5 fL (80.0-98.0); Mean Platelet Volume 11.7 fL (9.4-12.3); Monocytes Absolute Auto 0.7 X10*3/uL (0.1-1.2); Monocytes Percent Auto 9.1 % (2-11); Neutrophils Absolute Auto 3.1 x10*3/uL (2.0-8.3); Neutrophils Percent Auto 43.6 % (45-73); Platelet Count 203 X10*3/uL (160-400); Red Blood Count 4.63 X10*6/uL (4.20-5.50); Red Cell Distribution Width 14.4 % (11.0-16.0); White Blood Count 7.1 X10*3/uL (4.8-10.8)
[2024-04-26 16:44] LABS: Appearance Urine Cloudy; Color Urine Yellow; Glucose Urine UA Negative (Negative); Leukocyte Esterase Urine Small (1+) (Negative); Nitrite Urine Negative (Negative); PH 6.5 (5.0-9.0); UMIC TRIGGER UACC YES; Urine Blood Negative (Negative); Urine Ketones Negative (Negative); Urine Protein Negative (Neg-Trace)
[2024-04-26 16:57] LABS: Bacteria Urine 1+ (None Seen); Hyaline Casts Urine 0-2 /LPF (0-2); RBC Urine 0-2 /HPF (0-2); UACC Culture Trigger YES; WBC Urine 0-5 /HPF (0-5)
[2024-04-26 16:59] LABS: Alanine Aminotransferase 30 U/L (0-31); Albumin Level 4.1 g/dL (3.5-5.0); Anion Gap 12 (12-20); Aspartate Amino Transferase 60 U/L (5-31); Bilirubin Total 0.4 mg/dL (0.0-1.0); Blood Urea Nitrogen 15 mg/dL (9-16); Calcium 9.4 mg/dL (8.4-10.2); Carbon Dioxide 25 mmol/L (22-29); Chloride 105 mmol/L (96-108); Cholesterol 197 mg/dL (<200); Estimated Glomerular Filt Rate > 60; Glucose Fasting 95 mg/dL (60-99); HDL Cholesterol 55 mg/dL (>40); LDL Cholesterol Calculated 116 mg/dL (<100); Sodium 138 mmol/L (135-145); Total Protein 7.6 g/dL (6.5-8.0); Triglycerides 133 mg/dL (<150)
[2024-04-26 17:07] LABS: TSH reflex Free T4 3.25 uIU/mL (0.32-4.0); Vitamin D 25-OH Total 39.1 ng/mL (>30)
[2024-04-26 17:43] LABS: Alkaline Phosphatase 123 U/L (39-117)
== END 2024-04-26 13:04 | disposition home or self-care (01) ==
LOC: HO.HMGCLDS 13:03
PROVIDERS: PCP Nurse Practitioner Family; Visit Provider Nurse Practitioner Family
DX: Z00.00 Encounter for general adult medical examination without abnormal findings (principal); E55.9 Vitamin D deficiency, unspecified
CPT/HCPCS: 36415; 80053; 80061; 81001; 82306; 84443; 85025; 87086

== ENCOUNTER 2024-06-10 10:07 | Outpatient (REF) | payer OTHER, SELFPAY ==
--- NOTE | ~2024-06-10 | US_ITS ---
CLINICAL HISTORY: F10.10 - Alcohol abuse, uncomplicated US abdomen complete Comparison: None Findings: The visualized pancreas is normal. The aorta and inferior vena cava are normal caliber. The appearance of the liver suggests fatty infiltration without focal lesion. There is no intrahepatic bile duct dilatation. The common duct is 3.7 mm in diameter. The gallbladder is normal. There is no sonographic Blas sign. The main portal vein is antegrade. The right kidney is 10.0 cm in length. The left kidney is 10.1 cm in length. The spleen is normal. No ascites. IMPRESSION: 1. Hepatic steatosis. This document has been electronically signed by: Mehdi Neil MD on 06/11/2024 09:32:08
[2024-06-10 11:41] LABS: Appearance Urine Clear; Color Urine Yellow; Glucose Urine UA Negative (Negative); Leukocyte Esterase Urine Negative (Negative); Nitrite Urine Negative (Negative); PH 6.5 (5.0-9.0); Specific Gravity - Urine <= 1.005 (1.005-1.025); Urine Blood Negative (Negative); Urine Ketones Negative (Negative); Urine Protein Negative (Neg-Trace)
[2024-06-13 03:34] LABS: HBc Num1 0.16 S/CO (0.00-0.79); HBsAGNum1 0.27 S/CO (0.00-0.99); Hepatitis B Core Antibody Nonreactive (Nonreactive); Hepatitis B Surface Antigen Negative (Negative); ~HepC Num1 0.17 S/CO (0.00-0.79); ~Hepatitis B Surface Antibody NONREACTIVE (Nonreactive); ~Hepatitis C Antibody Nonreactive (Nonreactive)
[2024-06-14 08:59] LABS: Hepatitis A Antibody IgM 0.15 Index (0-0.79); ~Hepatitis A Antibody IgM Nonreactive (Nonreactive)
[2024-06-14 17:07] LABS: Smooth Muscle Antibody <20 U (<20)
== END 2024-06-10 10:08 | disposition home or self-care (01) ==
LOC: HO.US 10:07
PROVIDERS: PCP Nurse Practitioner Family; Visit Provider Nurse Practitioner Family
DX: F10.10 Alcohol abuse, uncomplicated (principal); R74.8 Abnormal levels of other serum enzymes; Z00.00 Encounter for general adult medical examination without abnormal findings
CPT/HCPCS: 36415; 76700; 81003; 86015; 86704; 86706; 86709; 86803; 87340

== ENCOUNTER → 2024-06-10 10:09 | Outpatient (BNV) | payer OTHER, SELFPAY | PROVIDERS: PCP Nurse Practitioner Family; Visit Provider Specialist | DX: K76.0 Fatty (change of) liver, not elsewhere classified (principal) | CPT/HCPCS: 76700 ==

== ENCOUNTER 2024-07-01 10:54 | Outpatient (REF) | payer OTHER, SELFPAY | END 2024-07-01 10:55 | disposition home or self-care (01) | LOC: HO.CT 10:54 | PROVIDERS: PCP Nurse Practitioner Family; Visit Provider Physician Assistant Medical | DX: Z13.89 Encounter for screening for other disorder (principal) ==

== ENCOUNTER 2024-07-05 13:10 | Outpatient (AMB) | payer OTHER, SELFPAY ==
[2024-07-05 13:11] VITALS: BP 110/78; PULSE 103; RESP 20; O2SAT 95; BMI 24.5
--- NOTE | 2024-07-05 13:11 | MHC.PC.OV ---
Vital Signs 07/05/24 13:11 Height 5 ft 4 in Weight 143 lb BMI 24.5 BP 110/78 Blood Pressure Location Lt brachial Position Sitting Respiration 20 Pulse 103 H Pulse Source Pulse Oximeter Pulse Oximetry (%) 95 Oxygen Delivery Method Room Air Intake Visit Reasons: forms to be signed Intake Note: Pt is here today for a follow up visit to have paper work fill out. Allergies bee pollen [BEE STINGS] Allergy (Unknown, Verified 07/05/24 13:14) SWELLING Tobacco use date assessed: 07/05/24 Dental Screening Dental Screen Date: 04/21/24 HPI forms to be signed HPI Details Chief Complaint The patient seeks a review of her restrictions and previous diagnosis due to her history of lumbar disc disease and past compression fracture. History of Present Illness The patient is a 59-year-old female presenting with a request to review her physical restrictions and a summary of her previous diagnoses for future employment considerations. She has a history of lumbar disc disease, which contributes to occasional lower back pain that she manages with regular breaks during activities. Previously, a compression fracture was treated with kyphoplasty, resulting in improved symptoms. The patient denies any signs of cauda equina syndrome or radicular symptoms, and patellar reflexes have been observed as positive. She remains a smoker. 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 - Substance Use: Current smoker. Health Maintenance Review of Systems - Musculoskeletal: Reports intermittent lower back pain; Denies radicular symptoms. - Neurological: Denies signs suggestive of cauda equina syndrome. - Respiratory: Reports tobacco use. Physical Exam General: Cooperative, healthy appearing, comfortable, no acute distress and well developed Orientation: Patient oriented x3 Limitations: Recommend not lifting over 20 pounds at any one time Head: Normal to inspection Ears: Hearing grossly normal bilaterally Nose: Normal external nose present Face and sinus: Normal facial exam Eyes: Appearance normal, both eyes and all related structures Neck: Normal visual inspection and Yes full ROM Respiratory: Diminished breath sounds bilaterally Cardiovascular: Regular rate and rhythm. s1 s2 GI: Normal to inspection. Soft to palpation and nontender Skin: No rashes or lesions noted Neuro: Patient oriented x3, positive patellar reflexes Extremities: Normal to inspection Results Plan The patient should initiate a part-time work schedule, gradually increasing to full-time as she feels capable, while maintaining regular intervals for rest. Lifting should be limited to under 20 pounds. Her capacity to perform various job roles remains optimistic given the stabilization of her previous compression fracture and successful management of lumbar disc disease. Monitoring her physiological responses during the return to work will be necessary for maintaining her health and functionality. Discussion Notes I discussed with the patient the necessity of a graded return to work, emphasizing the importance of consistent breaks during her shifts to manage her lumbar disc disease effectively. The recommendation for a weight-lifting limit of 20 pounds was underscored to prevent exacerbation of back pain. The impact of smoking on respiratory function and overall health was acknowledged, but specifics on smoking cessation were not addressed in this conversation. 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 Patient Instructions - Start work with a part-time schedule; increase to full-time if able. - Take regular breaks during the work shift. - Do not lift more than 20 pounds. - Monitor back pain and modify activity as needed. 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 Mother Asthma COPD (chronic obstructive pulmonary disease) Bronchitis Pleurisy Sister No problems noted. Sister Cervical cancer Son No problems noted. Daughter No problems noted. Social History Housing: Other Housing Other:: hotel Alcohol intake: current Alcohol intake frequency: 3 or more drinks per day Alcohol type: hard liquor Patient Tobacco Use Status: Current everyday Tobacco user Tobacco use type: Cigarette Cigarette Packs Per Day: 0.5 Cigarettes Per Day: 20 Years Smoked: 30 e-Cigarette/Vaping Use: Never Used Second Hand Smoke Exposure: No service: No Current occupational status: disabled Cognitive needs: No Hearing needs: No Vision needs: No Questionnaire Thrive Questionnaire Date Thrive assessed: 04/21/24 I am a: Patient What is your living situation today?: I do not have a steady places to live I am staying at a hotel Within the past 12 months, did the food you bought not last and you didn't have the money to get more?: Never true Within the past 12 months, did you worry whether your food would run out before you got money to buy more?: Never true Do you have trouble paying for medicines?: No Do you have trouble getting transportation to medical appointments?: No Do you have trouble paying your heating and electricity bill?: No Do you have trouble taking care of your child, family member or friend?: No Do you have trouble with day-to-day activities such as bathing, preparing meals, shopping, managing finances, etc.?: No Are you currently unemployed and looking for a job?: No Are you interested in more education?: No Please select the resources that you would like help with: Housing/Nursing Home Currently or been in a relationship where the following occur: No concerns reported THRIVE Score: 1 DARIANA-7 AMB Questionnaire DARIANA-7 Date DARIANA - 7 assessed: 04/21/24 Source: Developed by Drs. Paulie Avalos, Sheree Hand, Davide Pham and colleagues, with an educational carmen from [employer]. Physical exam (Primary Care) Vital Signs: Last Vital Signs Pulse 103 H 07/05/24 13:11 Resp 20 07/05/24 13:11 BP 110/78 07/05/24 13:11 Pulse Ox 95 07/05/24 13:11 Oxygen Delivery Method Room Air 07/05/24 13:11 BMI result Body Mass Index 24.5 Tobacco/Smoking Status: Tobacco use Status Tobacco use date assessed 07/05/24 07/05/24 13:17 Patient Tobacco Use Status Current everyday Tobacco 07/05/24 13:17 Tobacco use type Cigarette 07/05/24 13:17 e-Cigarette/Vaping Use Never Used 07/05/24 13:17 Thrive Assessment: Date of Thrive Assessment Date Thrive assessed 04/21/24 07/05/24 13:17 Currently or been in a relationship where the following occur: No concerns reported Coding Level of Care Code Est Pt Level 3 (67012) Diagnoses Disc degeneration, lumbar M51.36 Compression fx, lumbar spine S32.000A Assessment & Plan Assessment & Plan (1) Disc degeneration, lumbar: Code(s): M51.36 - Other intervertebral disc degeneration, lumbar region Category: Medical (2) Compression fx, lumbar spine: Code(s): S32.000A - Wedge compression fracture of unspecified lumbar vertebra, initial encounter for closed fracture Category: Medical Plan .
== END 2024-07-05 14:16 | disposition home or self-care (01) ==
LOC: HO.HMCC 13:10
PROVIDERS: PCP Nurse Practitioner Family; Visit Provider Nurse Practitioner Family
DX: M51.369 Other intervertebral disc degeneration, lumbar region without mention of lumbar back pain or lower extremity pain (principal); S32.000A Wedge compression fracture of unspecified lumbar vertebra, initial encounter for closed fracture

== ENCOUNTER → 2024-07-05 13:10 | Outpatient (BNVA) | payer OTHER, SELFPAY | PROVIDERS: PCP Nurse Practitioner Family; Visit Provider Nurse Practitioner Family | DX: M51.369 Other intervertebral disc degeneration, lumbar region without mention of lumbar back pain or lower extremity pain (principal); S32.000D Wedge compression fracture of unspecified lumbar vertebra, subsequent encounter for fracture with routine healing | CPT/HCPCS: 99212 ==

== ENCOUNTER 2024-07-22 10:42 | Outpatient (AMB) | payer OTHER, SELFPAY ==
--- NOTE | 2024-07-22 08:14 | A.OFFVIS_ITS ---
Intake Visit Reasons: Current Smoker Allergies bee pollen [BEE STINGS] Allergy (Unknown, Verified 07/05/24 13:14) SWELLING HPI HPI Current Smoker: Details: Initial visit for this 59yo smoker with a 50+PYH. Patient started smoking at age 14 for 45 years at 1-1.5ppd. . Reports marijuana use. Denies second hand smoke exposure. Denies exposure to chemicals or substances like asbestos. . Denies known family history of lung cancer. Personal history of cancer. Rt breast LCIS s/p excision 2017 Also notes left breast excision. . Denies chest CT in last year. chest CT in 2022 showed no suspicious nodules. History of spontaneous right pneumothorax 20 years ago - had chest tube. . Denies recent travel outside the [place]. Denies recent respiratory illness or recent hospitalization for respiratory issues. Denies testing positive for COVID. Denies receiving COVID Vaccine. . Denies fever, chills, new/worsening cough, hemoptysis, hoarseness or dysphagia. Denies significant chest pain, significant dyspnea or unintentional weight loss. Patient Lung Cancer Screening Questionnaire reviewed with patient by provider. . Shared Decision Making Completed. Patient meets criteria. Discussed in detail with patient, the risk vs benefit of LDCT screening. Patient consents to proceed with scan. Discussed smoking cessation. [facility] Medical History (Updated 07/22/24 @ 11:12 by Loraine Ellsworth PA-C) Fatty liver Tubular adenoma of colon Nicotine dependence, cigarettes, uncomplicated History of lobular carcinoma in situ (LCIS) of breast HTN (hypertension) Disc degeneration, lumbar Surgical History (Updated 07/22/24 @ 11:12 by Loraine Ellsworth PA-C) History of total adrenalectomy History of chest tube placement History of colonoscopy History of right breast biopsy History of section Family History Father No problems noted. Mother Asthma COPD (chronic obstructive pulmonary disease) Bronchitis Pleurisy Sister No problems noted. Sister Cervical cancer Son No problems noted. Daughter No problems noted. Social History (Updated 07/22/24 @ 10:56 by Loraine Ellsworth PA-C) Housing: Other Housing Other:: hotel Alcohol intake: current Alcohol intake frequency: 3 or more drinks per day Alcohol type: hard liquor Patient Tobacco Use Status: Current everyday Tobacco user Tobacco use type: Cigarette Years Smoked: (onset 14yo, 1-1.5ppd x 45yrs, 50+PYH) e-Cigarette/Vaping Use: Never Used Second Hand Smoke Exposure: No service: No Current occupational status: disabled Cognitive needs: No Hearing needs: No Vision needs: No Assessment & Plan Assessment & Plan (1) Nicotine dependence, cigarettes, uncomplicated: Comment: (onset 14yo, 1-1.5ppd x 45yrs, 50+PYH) Code(s): F17.210 - Nicotine dependence, cigarettes, uncomplicated Category: Medical Plan: - SDM visit completed today in office. - Patient meets criteria for LDCT for lung cancer screening purposes and is asymptomatic. - Smoking cessation counseling offered. Patients can always call [phone]. - Will arrange for a LDCT scan of the chest for screening purposes at [facility]. - Risks, benefits, and alternatives were discussed in detail and the patient agrees to proceed. - Risks discussed include but are not limited to: radiation exposure, anxiety during testing and while awaiting results, false negatives, false positives and possibility of additional intervention such as further imaging or surgical procedures for benign disease. - Benefits are obviously detection of lung cancer at an early stage which can lead to improved outcomes. - Discussed the importance of screening program compliance with adherence to yearly LDCT scan as scheduled - or sooner interval scans for personalized screening regimen. - Discussed follow up plan. Our office will send a letter discussing results and if needed set up phone call and office visit based on CT findings. - Patient educated on results categorization and the management decisions for suspicious findings potentially found on the screening LDCT scan. Any patient with a Lung RADS score of 3 or 4 will be reviewed by a multidisciplinary team at [facility] to form a plan of action in regards to scan findings. - If further work up is warranted for a suspicious lung finding this will be followed by the Lung Cancer Screening program in conjunction with the Thoracic Surgery Department at [facility]. - A copy of the office note and LDCT will be sent to the patient's PCP - as well as documentation on any associated further plans of care. - Incidental findings on LDCT are the PCP's responsibility. These findings are indicated with an S finding on the LDCT Assessment. A note discussing the findings will be sent to the PCP who is then responsible for further management. - All questions answered.? Coding Level of Care Code Lung Cancer Screening G0296 Diagnoses Nicotine dependence, cigarettes, uncomplicated F17.210
== END 2024-07-22 11:19 | disposition home or self-care (01) ==
LOC: HO.HPS 10:43
PROVIDERS: PCP Nurse Practitioner Family; Referring Provider Nurse Practitioner Family; Visit Provider Physician Assistant Medical
DX: F17.210 Nicotine dependence, cigarettes, uncomplicated (principal)
CPT/HCPCS: G0296

== ENCOUNTER 2024-07-22 11:06 | Outpatient (REF) | payer OTHER, SELFPAY ==
--- NOTE | ~2024-07-22 | CT_ITS ---
CLINICAL HISTORY: F17.210 - Nicotine dependence, cigarettes, uncomplicated CT lung cancer screening (LDCT) Comparison: 11/14/2022 Technique: Axial CT images of the chest using low-dose technique. Referring provider counseled the patient on shared decision-making for LDCT screening. Additional counseling was provided on smoking cessation. Effective radiation dose total: DLP 35.9 mGycm, CTDIvol 1.1 mGy. Findings: Lung: No new solid or semi solid lesion Coronary artery calcifications: Mild Limited upper abdomen: Unremarkable Other: Changes of pulmonary bullous disease with scarring or subsegmental atelectasis Impression: Category 1: Normal; continue annual screening Category 1: Normal; continue annual screening Category 2: Benign appearance or behavior, continue annual screening Category 3: Probably benign, [address] recommended Category 4A: Suspicious, [address] recommended; may consider PET/CT Category 4B: Suspicious, Additional diagnostics and/or tissue sampling recommended Category 4X: Suspicious, Additional diagnostics and/or tissue sampling recommended Category 0: Recalls (incomplete screen due to Incomplete coverage, Noise, Respiratory motion, Expiration, Obscured by acute abnormality) This document has been electronically signed by: Mehdi Neil MD on 07/23/2024 10:31:57
== END 2024-07-22 11:07 | disposition home or self-care (01) ==
LOC: HO.CT 11:06
PROVIDERS: PCP Nurse Practitioner Family; Visit Provider Physician Assistant Medical
DX: Z12.2 Encounter for screening for malignant neoplasm of respiratory organs (principal); F17.210 Nicotine dependence, cigarettes, uncomplicated
CPT/HCPCS: 71271; G0296

== ENCOUNTER → 2024-07-22 11:08 | Outpatient (BNV) | payer OTHER, SELFPAY | PROVIDERS: PCP Nurse Practitioner Family; Visit Provider Specialist | DX: Z12.2 Encounter for screening for malignant neoplasm of respiratory organs (principal); F17.210 Nicotine dependence, cigarettes, uncomplicated | CPT/HCPCS: 71271 ==

== ENCOUNTER → 2024-08-23 12:45 | Outpatient (BNV) | payer MEDICAID, SELFPAY | PROVIDERS: PCP Nurse Practitioner Family; Visit Provider Internal Medicine | DX: Z12.31 Encounter for screening mammogram for malignant neoplasm of breast (principal) | CPT/HCPCS: 77063; 77067 ==

== ENCOUNTER 2024-08-23 12:46 | Outpatient (REF) | payer MEDICAID, SELFPAY ==
--- OUTSIDE RECORDS SUMMARY | 2024-08-23 13:39 | XMS_ITS ---
Author Name [facility] Organization Unknown History of Medication Use Medication Directions Dispensed Refills Start Date End Date Stat Hydrocodone/Acetamin ophen (Hydrocodone-Acetami nophen 5-325) 1 TAB Tablet 09/02/2023 active Folic Acid 1 MG Folic Acid 1 MG active HYDROcodone-Acetamin ophen 5-325 MG HYDROcodone-Acetamin ophen 5-325 MG active Vitamin B12 1000 MCG Vitamin B12 1000 MCG active Problems Problem Status Onset Date Problem Type Date of Resoluti on Source Compression fracture of L5 vertebra active ProblemAct CTBRISTOL Accidental fall active ProblemAct CTB RISTOL Encounters Encounter Type Encounter Reason Primary Diagnosis Location Date Ambulatory LOW BACK PAIN LOW BACK PAIN, UNSPECIFIED 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 09/02/2023 Care Team Organization Name Specialty Phone Email Start Date End Da te [facility] 09/30/2023 [facility] Medical [facility] PHYSICIAN NO Primary Care 09/16/2023 [facility] NO [facility] 09/04/2023 [facility] 09/04/2023 02/24/2024 [facility] PHYSICIAN NO Primary Care 024
== END 2024-08-23 12:47 | disposition home or self-care (01) ==
LOC: HO.MAMMO 12:46
PROVIDERS: PCP Nurse Practitioner Family; Visit Provider Nurse Practitioner Family
DX: Z12.31 Encounter for screening mammogram for malignant neoplasm of breast (principal)
CPT/HCPCS: 77063; 77067

== ENCOUNTER 2024-10-17 10:59 | Outpatient (AMB) | payer OTHER, SELFPAY ==
[2024-10-17 11:02] VITALS: BP 130/90; PULSE 83; RESP 16; TEMP 36.8; O2SAT 95; BMI 24.2
--- NOTE | 2024-10-17 11:02 | MHC.PC.OV ---
Vital Signs 10/17/24 11:02 10/17/24 12:00 Height 5 ft 4 in Weight 141 lb BMI 24.2 BP 130/90 H 134/88 Blood Pressure Location Rt brachial Rt brachial Position Sitting Respiration 16 Pulse 83 Pulse Source Pulse Oximeter Temp 98.2 F Temp Source Oral Pulse Oximetry (%) 95 Oxygen Delivery Method Room Air Intake Visit Reasons: 6 month follow up Paraprofessional Interpreter Required: No Accompanied by: Self / Same As Patient Allergies bee pollen (BEE STINGS) Allergy (Unknown, Verified 10/17/24 11:30) SWELLING Tobacco use date assessed: 10/17/24 Dental Screening Dental Screen Date: 10/17/24 Did you have a dental visit in the last 12 months?: Yes Did you have a dental problem in the last 6 months where you did not have access to dental care?: No Was dental information given to patient?: Patient has dentist HPI 6 month follow up HPI Details Chief Complaint The patient presents for a follow-up on hypertension management. History of Present Illness The patient is a 59-year-old female presenting with hypertension follow-up. She denies experiencing increased shortness of breath, chest pain, headaches, blurred vision, or dizziness. The patient has not taken her blood pressure medication today but plans to do so upon returning home. Social History Health Maintenance Review of Systems - Cardiovascular: Denies chest pain - Respiratory: Denies increased shortness of breath - Neurological: Denies headaches, blurred vision, dizziness Physical Exam General: Cooperative, healthy appearing, comfortable, no acute distress and well developed Orientation: Patient oriented x3 Limitations: No limitations Head: Normal to inspection Ears: Hearing grossly normal bilaterally Nose: Normal external nose present Face and sinus: Normal facial exam Eyes: Appearance normal, both eyes and all related structures Neck: Normal visual inspection and Yes full ROM Respiratory: Normal respiratory effort and able to speak in complete sentences. Clear to auscultation bilaterally, slightly diminished now Cardiovascular: Regular rate and rhythm. Normal S1 and S2, faint carotid bruit to right GI: Normal to inspection. Soft to palpation and nontender Skin: No rashes or lesions noted Neuro: Patient oriented x3 Extremities: Normal to inspection plan: carotid US bilat, cont HTN meds, blood work in the near future [facility] Medical History (Updated 10/17/24 @ 12:00 by Lamonte Mon, INVASIVE MANAGER-) Fatty liver Tubular adenoma of colon Nicotine dependence, cigarettes, uncomplicated History of lobular carcinoma in situ (LCIS) of breast HTN (hypertension) Disc degeneration, lumbar Surgical History History of total adrenalectomy History of chest tube placement History of colonoscopy History of right breast biopsy History of section Family History Father No problems noted. Mother Asthma COPD (chronic obstructive pulmonary disease) Bronchitis Pleurisy Sister No problems noted. Sister Cervical cancer Son No problems noted. Daughter No problems noted. Social History Housing: Other Housing Other:: hotel Alcohol intake: current Alcohol intake frequency: 3 or more drinks per day Alcohol type: hard liquor Patient Tobacco Use Status: Current everyday Tobacco user Tobacco use type: Cigarette Years Smoked: (onset 14yo, 1-1.5ppd x 45yrs, 50+PYH) e-Cigarette/Vaping Use: Never Used Second Hand Smoke Exposure: No service: No Current occupational status: disabled Cognitive needs: No Hearing needs: No Vision needs: No Questionnaire PHQ-9 Over the last 2 weeks, how often have you been bothered by any of the following problems? 1. Little interest or pleasure in doing things: several days 2. Feeling down, depressed, or hopeless: nearly every day 3. Trouble falling or staying asleep, or sleeping too much: several days 4. Feeling tired or having little energy: several days 5. Poor appetite or overeating: several days 6. Feeling bad about yourself - or that you are a failure or have let yourself or your family down: several days 7. Trouble concentrating on things, such as reading the newspaper or watching television: several days 8. Moving or speaking so slowly that other people could have noticed. Or the opposite - being so fidgety or restless that you have been moving around a lot more than usual: several days 9. Thoughts that you would be better off or of hurting yourself in some way: not at all Total score: 10 Depression Screening Interpretation: Positive (denies any si or HI, will have bryant) speak with pt) Depression Screening Follow-up: Existing condition Depression Screening Done: Yes 50932 - PHQ-9 Billing: Yes Source: Developed by Drs. Paulie Avalos, Sheree Hand, Davide Pham and colleagues, with an educational carmen from [employer]. Thrive Questionnaire Date Thrive assessed: 04/21/24 I am a: Patient What is your living situation today?: I do not have a steady places to live I am staying at a hotel Within the past 12 months, did the food you bought not last and you didn't have the money to get more?: Never true Within the past 12 months, did you worry whether your food would run out before you got money to buy more?: Never true Do you have trouble paying for medicines?: No Do you have trouble getting transportation to medical appointments?: No Do you have trouble paying your heating and electricity bill?: No Do you have trouble taking care of your child, family member or friend?: No Do you have trouble with day-to-day activities such as bathing, preparing meals, shopping, managing finances, etc.?: No Are you currently unemployed and looking for a job?: No Are you interested in more education?: No Please select the resources that you would like help with: Housing/Alf Currently or been in a relationship where the following occur: No concerns reported THRIVE Score: 1 DARIANA-7 AMB Questionnaire DARIANA-7 Date DARIANA - 7 assessed: 10/17/24 Feeling nervous, anxious, or on edge: 1 = Several days Not being able to stop or control worryin = Not at all Source: Developed by Drs. Paulie Avalos, Sheree Hand, Davide Pham and colleagues, with an educational carmen from [employer]. DARIANA-7 Assessment Billing DARIANA-7 Assessment Tool: DARIANA-7 Assessment 71198 Physical exam (Primary Care) Vital Signs: Last Vital Signs Temp 98.2 F 10/17/24 11:02 Pulse 83 10/17/24 11:02 Resp 16 10/17/24 11:02 BP 134/88 10/17/24 12:00 Pulse Ox 95 10/17/24 11:02 Oxygen Delivery Method Room Air 10/17/24 11:02 BMI result Body Mass Index 24.2 Tobacco/Smoking Status: Tobacco use Status Tobacco use date assessed 10/17/24 10/17/24 11:14 Patient Tobacco Use Status Current everyday Tobacco 10/17/24 11:06 Tobacco use type Cigarette 10/17/24 11:06 e-Cigarette/Vaping Use Never Used 10/17/24 11:06 PHQ-9: PHQ-9 Score PHQ-9: Total score 10 10/17/24 12:00 Depression Screening Interpretation: Positive (denies any si or HI, will have BH (cecilia) speak with pt) Depression Screening Follow-up: Existing condition Thrive Assessment: Date of Thrive Assessment Date Thrive assessed 04/21/24 10/17/24 11:06 Currently or been in a relationship where the following occur: No concerns reported Coding Level of Care Code Est Pt Level 3 (84514) Diagnoses HTN (hypertension) I10 Nicotine dependence, cigarettes, uncomplicated F17.210 Carotid bruit R09.89 Additional Codes DARIANA-7 Assessment Billing - DARIANA-7 Assessment Tool: DARIANA-7 Assessment 13015 ([id number]) PHQ-9 - 96443 - PHQ-9 Billing: Yes ([id number]) Assessment & Plan Assessment & Plan (1) HTN (hypertension): Code(s): I10 - Essential (primary) hypertension Category: Medical (2) Nicotine dependence, cigarettes, uncomplicated: Comment: (onset 14yo, 1-1.5ppd x 45yrs, 50+PYH) Code(s): F17.210 - Nicotine dependence, cigarettes, uncomplicated Category: Medical (3) Carotid bruit: Code(s): R09.89 - Other specified symptoms and signs involving the circulatory and respiratory systems Category: Medical Plan . Orders: Orders Complete Blood Count Auto Diff Today I10 - Essential (primary) hypertension Comprehensive [place]. Panel Fast Today I10 - Essential (primary) hypertension TSH reflex Free T4 Today I10 - Essential (primary) hypertension UA CC w/rflx Micro + Cult Today I10 - Essential (primary) hypertension Lipid Panel Today I10 - Essential (primary) hypertension US carotid duplex BI Today F17.210 - Nicotine dependence, cigarettes, uncomplicated, R09.89 - Other specified symptoms and signs involving the circulatory and respiratory systems
[2024-10-17 12:00] VITALS: BP 134/88
== END 2024-10-17 12:06 | disposition home or self-care (01) ==
LOC: HO.HMCC 11:00
PROVIDERS: PCP Nurse Practitioner Family; Visit Provider Nurse Practitioner Family
DX: I10 Essential (primary) hypertension (principal); F17.210 Nicotine dependence, cigarettes, uncomplicated; R09.89 Other specified symptoms and signs involving the circulatory and respiratory systems

== ENCOUNTER → 2024-10-17 10:59 | Outpatient (BNVA) | payer OTHER, SELFPAY | PROVIDERS: PCP Nurse Practitioner Family; Visit Provider Nurse Practitioner Family | DX: I10 Essential (primary) hypertension (principal); R09.89 Other specified symptoms and signs involving the circulatory and respiratory systems; F17.210 Nicotine dependence, cigarettes, uncomplicated | CPT/HCPCS: 96127; 99212 ==